=== PATIENT | female | born 1995 | race African-American/Black ===

== ENCOUNTER 2020-11-29 16:49 | Emergency (ER) | payer OTHER, MEDICAID, SELFPAY ==
[2020-11-29 17:18] VITALS: BP 110/70; PULSE 100; RESP 18; TEMP 36.9; O2SAT 100; BMI 25.2
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
== END 2020-11-29 20:48 | disposition left against medical advice (07) ==
PROVIDERS: Emergency Provider Internal Medicine; PCP Internal Medicine
DX: Z04.1 Encounter for examination and observation following transport accident (principal); O26.893 Other specified pregnancy related conditions, third trimester; R10.9 Unspecified abdominal pain; Z3A.34 34 weeks gestation of pregnancy
CPT/HCPCS: 99282; 99285

== ENCOUNTER 2021-08-06 15:02 | Outpatient (REF) | payer MEDICAID, SELFPAY ==
--- NOTE | ~2021-08-06 | US_ITS ---
EXAMINATION: US PELVIS CLINICAL INFORMATION: Left lower quadrant pain COMPARISON: None TECHNIQUE: Ultrasound of the pelvis is performed using both transabdominal and transvaginal transducers along with Doppler. Transvaginal imaging is performed due to inadequate visualization transabdominally. FINDINGS: The uterus is anteverted and measures 7 x 4 x 5 cm in dimension. No focal uterine lesion is seen. Endometrial thickness is normal measuring 0.6 cm. There is a small echogenic focus in the posterior cervix, question representing a small calcification. The ovaries are normal. The right ovary measures 3.5 x 2 x 2.8 cm. The left ovary measures 3.3 x 1.7 x 3 cm. There is no fluid in the pelvis. US/US pelvic and transvaginal IMPRESSION: Small probable calcification in the posterior cervix. Otherwise unremarkable exam.
== END 2021-08-06 15:03 | disposition home or self-care (01) ==
LOC: HO.US 15:02
PROVIDERS: PCP Internal Medicine; Visit Provider Internal Medicine
DX: R10.32 Left lower quadrant pain (principal); R10.2 Pelvic and perineal pain
CPT/HCPCS: 76830; 76856

== ENCOUNTER 2021-09-02 12:57 | Outpatient (REF) | payer MEDICAID, SELFPAY ==
[2021-09-03 03:47] LABS: CT PCR NOT DETECTED (Not Detect.); NG PCR NOT DETECTED (Not Detect.)
== END 2021-09-02 12:58 | disposition home or self-care (01) ==
LOC: HO.LAB 12:57
PROVIDERS: Visit Provider Obstetrics & Gynecology
DX: Z30.09 Encounter for other general counseling and advice on contraception (principal)
CPT/HCPCS: 87491; 87591; 99212

== ENCOUNTER → 2022-08-26 10:11 | Outpatient (BNVA) | payer MEDICAID, SELFPAY | PROVIDERS: Visit Provider Advanced Practice Midwife | DX: Z30.09 Encounter for other general counseling and advice on contraception (principal) | CPT/HCPCS: 99212 ==

== ENCOUNTER 2022-11-13 13:02 | Outpatient (REF) | payer MEDICAID, SELFPAY ==
[2022-11-14 00:52] LABS: CT PCR NOT DETECTED (Not Detect.); NG PCR NOT DETECTED (Not Detect.)
[2022-11-14 09:33] LABS: BV Int Neg Control Negative (Negative); BV Int Pos Control Positive (Positive)
== END 2022-11-13 13:03 | disposition home or self-care (01) ==
LOC: HO.LNP 13:02
PROVIDERS: PCP Internal Medicine; Visit Provider Advanced Practice Midwife
DX: Z01.419 Encounter for gynecological examination (general) (routine) without abnormal findings (principal); F41.9 Anxiety disorder, unspecified; Z86.2 Personal history of diseases of the blood and blood-forming organs and certain disorders involving the immune mechanism; Z86.39 Personal history of other endocrine, nutritional and metabolic disease; Z87.42 Personal history of other diseases of the female genital tract; Z79.899 Other long term (current) drug therapy
CPT/HCPCS: 0353U; 87480; 87510; 87660; 88142

== ENCOUNTER 2022-12-31 15:22 | Outpatient (REF) | payer MEDICAID, SELFPAY ==
[2022-12-31 15:43] LABS: Hematocrit 40.2 % (37.0-47.0); Hemoglobin 13.6 g/dl (12.0-16.0); Mean Corpuscular HGB Conc 33.8 g/dl (31.0-35.0); Mean Corpuscular Hemoglobin 29.4 pg (27.0-33.0); Mean Platelet Volume 10.6 fL (9.4-12.3); Platelet Count 278 X10*3/uL (160-400); Red Blood Count 4.62 X10*6/uL (4.20-5.50); White Blood Count 4.4 X10*3/uL (4.8-10.8)
[2022-12-31 16:26] LABS: Thyroid Stimulating Hormone 1.73 uIU/mL (0.32-4.0)
== END 2022-12-31 15:23 | disposition home or self-care (01) ==
LOC: HO.LAB 15:22
PROVIDERS: PCP Internal Medicine; Visit Provider Advanced Practice Midwife
DX: Z86.2 Personal history of diseases of the blood and blood-forming organs and certain disorders involving the immune mechanism (principal); Z86.39 Personal history of other endocrine, nutritional and metabolic disease; Z87.42 Personal history of other diseases of the female genital tract
CPT/HCPCS: 36415; 84443; 85027

== ENCOUNTER 2023-05-14 16:50 | Outpatient (REF) | payer MEDICAID, OTHER, SELFPAY ==
[2023-05-15 17:33] LABS: C. trachomatis RNA TMA NOT DETECTED (NOT DETECTED); Candida glabrata RNA NOT DETECTED (NOT DETECTED); Candida species RNA DETECTED (NOT DETECTED); N. gonorrhoeae RNA TMA NOT DETECTED (NOT DETECTED); Trichomonas vaginalis RNA NOT DETECTED (NOT DETECTED)
== END 2023-05-14 16:51 | disposition home or self-care (01) ==
LOC: HO.HHCLNP 16:50
PROVIDERS: Visit Provider Advanced Practice Midwife
DX: N89.8 Other specified noninflammatory disorders of vagina (principal)
CPT/HCPCS: 36415; 81513; 87481; 87491; 87591; 87661

== ENCOUNTER 2023-05-17 18:49 | Emergency (ER) | payer MEDICAID, OTHER, SELFPAY ==
--- NOTE | 2023-05-17 | ECG_ITS ---
Test Reason : chest pain Blood Pressure : / mmHG Vent. Rate : 085 BPM Atrial Rate : 085 BPM P-R Int : 120 ms QRS Dur : 074 ms QT Int : 358 ms P-R-T Axes : 023 049 020 degrees QTc Int : 426 ms Normal sinus rhythm with sinus arrhythmia Normal ECG No previous ECGs available Referred By: Generic ED Physician Electronically Signed By:LINETTE CALLEJAS MD
--- NOTE | ~2023-05-17 | CT_ITS ---
EXAMINATION: CT ABDOMEN AND PELVIS WITHOUT CONTRAST CLINICAL INFORMATION: Left flank pain COMPARISON: None available. TECHNIQUE: Multidetector volumetric imaging was performed from the superior aspect of the liver through the pubic symphysis. Sagittal and coronal reformatted images were obtained on the technologist's workstation. This CT examination was performed using dose optimization techniques as appropriate, variously including the following: *Automated exposure control *Adjustment of mA and/or kV according to patient size (this includes techniques or standardized protocols for targeted exams where dose is matched to indication/reason for exam; i.e. extremities or head) *Use of iterative reconstruction technique DLP: 338 mGy-cm FINDINGS: LUNG BASES: The visualized lung bases are unremarkable. LIVER, GALLBLADDER, AND BILIARY TREE: The liver is normal in size, shape, and attenuation. No focal hepatic lesion or biliary ductal dilatation is present. The gallbladder is unremarkable with no evidence of radiopaque gallstones, gallbladder wall thickening, or obvious pericholecystic inflammatory changes. PANCREAS: Unremarkable. SPLEEN: Unremarkable. ADRENAL GLANDS: Unremarkable. KIDNEYS AND URETERS: The kidneys are normal in size, shape, and attenuation. No hydronephrosis, hydroureter, or calculi seen. No perinephric stranding. BLADDER: Unremarkable. GASTROINTESTINAL TRACT: The small and large bowel are unremarkable. The appendix is unremarkable. ABDOMINAL WALL: No significant hernia is appreciated. LYMPH NODES: Normal. VASCULAR: Unremarkable. PELVIC VISCERA: Uterus and adnexa unremarkable. OSSEOUS STRUCTURES: Unremarkable. CT/CT abdomen pelvis wo IV con IMPRESSION: * No urinary calculi or hydronephrosis. * No acute findings within the abdomen or pelvis to explain the patient's symptomatology.
[2023-05-17 18:55] VITALS: BP 140/110; PULSE 79; O2SAT 99
[2023-05-17 19:28] VITALS: BP 121/74; BP 140/110; PULSE 79; PULSE 88; RESP 20; TEMP 36.1; O2SAT 100; O2SAT 99; BMI 23.8
[2023-05-17 19:40] LABS: MANUAL DIFF FLAG NO
[2023-05-17 19:42] LABS: Basophils Percent Auto 0.4 % (0-2); Eosinophils Absolute Auto 0.1 X10*3/uL (0.0-0.4); Eosinophils Percent Auto 2.7 % (0-4); Hematocrit 39.9 % (37.0-47.0); Hemoglobin 13.6 g/dl (12.0-16.0); Imm Gran Abs Auto 0.01 X10*3/uL (0.00-0.03); Imm Gran Pct Auto 0.2 % (0.0-0.4); Lymphocytes Absolute Auto 2.1 X10*3/uL (1.2-4.9); Lymphocytes Percent Auto 41.9 % (20-40); Mean Corpuscular HGB Conc 34.1 g/dl (31.0-35.0); Mean Corpuscular Hemoglobin 30.1 pg (27.0-33.0); Mean Corpuscular Volume 88.3 fL (80.0-98.0); Mean Platelet Volume 10.2 fL (9.4-12.3); Monocytes Absolute Auto 0.4 X10*3/uL (0.1-1.2); Monocytes Percent Auto 7.8 % (2-11); Neutrophils Absolute Auto 2.3 x10*3/uL (2.0-8.3); Platelet Count 247 X10*3/uL (160-400); Red Blood Count 4.52 X10*6/uL (4.20-5.50); White Blood Count 4.9 X10*3/uL (4.8-10.8)
[2023-05-17 19:58] LABS: Alanine Aminotransferase 13 U/L (0-31); Alkaline Phosphatase 46 U/L (39-117); Anion Gap 13 (12-20); Aspartate Amino Transferase 19 U/L (5-31); Bilirubin Total 0.4 mg/dL (0.0-1.0); Blood Urea Nitrogen 8 mg/dL (9-16); Calcium 9.6 mg/dL (8.4-10.2); Carbon Dioxide 26 mmol/L (22-29); Chloride 106 mmol/L (96-108); Creatinine Clr Calc Pharmacy 93.3; Estimated Glomerular Filt Rate > 60; Glucose Random 123 mg/dL (60-115); Lipase 28 U/L (8-78); Potassium 3.9 mmol/L (3.3-5.1); Sodium 141 mmol/L (135-145); Total Protein 7.5 g/dL (6.5-8.0)
[2023-05-17 20:15] LABS: Appearance Urine Clear; Color Urine Yellow; Glucose Urine UA Negative (Negative); Leukocyte Esterase Urine Negative (Negative); Nitrite Urine Negative (Negative); PH 6.5 (5.0-9.0); Specific Gravity - Urine <= 1.005 (1.005-1.025); Urine Blood Negative (Negative); Urine Ketones Negative (Negative); Urine Protein Negative (Neg-Trace)
[2023-05-17 20:16] LABS: UPreg QC Valid YES; Urine Pregnancy NEGATIVE (NEGATIVE)
[2023-05-17 20:17] LABS: Bacteria Urine None Seen (None Seen); Hyaline Casts Urine 0-2 /LPF (0-2); RBC Urine 0-2 /HPF (0-2); Squamous Epithelial Cell Urine 0-2 /HPF (0-2); WBC Urine 0-5 /HPF (0-5)
[2023-05-18] VITALS: BP 114/73; PULSE 81; RESP 18; TEMP 36.6; O2SAT 100
--- NOTE | 2023-05-18 00:49 | PC.NURSE ---
pt from home reporting left lower quadrant pain since this morning. pt reports the pain is intermittent. pt reports the pain subsides with rest and increases with movement. pt reports episodes of nausea. denies vomiting and diarrhea. pt reports hemorrhoids and constipation but reports that has been her normal since having a baby. no acute distress noted.
[2023-05-18 01:19] VITALS: BP 122/71; PULSE 88; RESP 16; TEMP 36.9; O2SAT 100
--- NOTE | 2023-05-18 01:42 | ED_ITS ---
HPI - Abdominal Pain General Chief Complaint: Abdominal Pain Stated Complaint: L side abd pain 8/10 pain Time Seen by Provider: 05/18/23 01:31 Source: patient Mode of arrival: ambulatory Limitations: language barrier (Mongolian speaking only, 911 emergency dispatcher used) History of Present Illness HPI narrative: 27-year-old female who presents emergency department for evaluation of left lower quadrant left flank pain. The pain started suddenly yesterday has been constant since onset. She describes the pain is a pressure-like pain which is 8/10 at its worst. She had associated nausea with no vomiting. She had frequency but no dysuria. She denied fever, chills, chest pain, shortness of breath. She denied diarrhea and states she is constipated and has hemorrhoids. She states she had similar pain in the past but she was never given a diagnosis. Related Data Home Medications Medication Instructions Recorded Confirmed cholecalciferol (vitamin D3) 50 50 mcg PO DAILY 08/26/22 11/13/22 mcg (2,000 unit) capsule (Vitamin D3) Previous Rx's Medication Instructions Recorded norgestimate-ethinyl estradiol 1 tab PO DAILY #84 tabs 11/13/22 0.18 mg/0.215mg/0.25mg-35 mcg(28)tablet (Tri-Linyah) metronidazole 500 mg tablet 500 mg PO BID 7 days #14 tabs 11/14/22 docusate sodium 100 mg capsule 100 mg PO BID 14 days #28 caps 05/18/23 (Colace) hydrocortisone 2.5 % topical cream 1 appl MA DAILY PRN hemorrhoids 05/18/23 with perineal applicator #30 grams (Proctozone-HC) polyethylene glycol 3350 17 17 g PO DAILY 8 doses #119 grams 05/18/23 gram/dose oral powder (Miralax) sennosides 17.2 mg tablet (Senokot 17.2 mg PO BID PRN constipation 05/18/23 Extra Strength) #20 tabs Allergies Allergy/AdvReac Type Severity Reaction Status Date / Time aspirin [ASPIRIN] Allergy Unknown LOW RBC, Verified 11/13/22 13:05 low plaletes Review of Systems Review of Systems Yes all other systems are reviewed and are negative PMFSH Past Medical History PMFSH Narrative: Past medical history: Anxiety, hypothyroidism, ITP social history: Patient denies tobacco, alcohol and drug use. Medical History (Updated 05/18/23 @ 07:24 by Sean Nguyen MD) Hx of thrombocytopenia History of hypothyroidism No known health problems Family History Family History Maternal Grandmother Breast CA Social History Social History Patient Tobacco Use Status: Never used Tobacco Smoked in Last 30 Days: No Use of substances other than those prescribed or required for medical reasons: No Advance Directives: No Advance Directives Information Provided: No Patient : No Physical Exam ED Vital Signs: Vital Signs - 24 hr 05/17/23 19:28 05/18/23 00:00 05/18/23 01:19 Temperature 97.0 F 97.8 F 98.4 F Pulse Rate 88 81 88 Respiratory Rate 20 18 16 Blood Pressure 121/74 114/73 122/71 Pulse Oximetry 100 100 100 Oxygen Delivery Method Room Air Room Air Room Air 05/18/23 02:00 05/18/23 06:14 Temperature 97.2 F 98.7 F Pulse Rate 54 89 Respiratory Rate 15 Blood Pressure 115/66 109/52 L Pulse Oximetry 100 98 Oxygen Delivery Method Room Air Room Air BMI result Body Mass Index 23.8 Vital signs were normal. Exam: General: Awake, alert in no distress Head: Normocephalic, atraumatic EENT: PERRL, Lids normal, sclera normal, conjunctiva normal, nose normal , ears normal, throat without erythema or exudates Neck: Supple, no adenopathy, no trachea midline or C-spine tenderness Lung: breath sounds symmetric, no wheezing, rales or rhonchi Chest: symmetric movement, nontender Heart: regular rate and rhythm, normal S1, S2 no murmurs or rubs Abdomen: soft, moderate left upper quadrant tender, nondistended, normal bowel sounds Back: Mild left CVA tenderness Extremities: no deformities, moves all extremities symmetrically Skin: no rashes, no lesion, normal color and warmth Neuro: Awake, alert, oriented, normal speech, cranial nerves intact, moves all extremities symmetrically Psych: Pleasant, cooperative Medical Decision Making Medical Decision Making MDM Narrative: 27-year-old female with history of anxiety, hypothyroidism, ITP presents emergency department for evaluation of sudden onset of left sided abdominal pain and left flank pain started 2 days prior. Patient has had associated nausea and urinary frequency. Vital signs were normal pain. Exam did reveal left sided abdominal tenderness and left CVA tenderness. Patient was treated with Toradol 15 mg IV, Zofran 4 mg IV and normal saline x1 L 02:18 Interpretation patient's laboratory evaluation is as follows: CBC was normal, CMP revealed an elevated glucose of 123 otherwise unremarkable. Lipase was normal at 28. Urine test was negative. Urinalysis was negative. 07:[address] scan did not reveal any significant abnormality to explain the patient's pain. This time I do not have a clear cause for the patient's pain however she did states she is constipated and this could possibly be the cause. Patient was prescribed Colace 100 mg twice a day for 2 weeks, extra-strength Senokot b.i.d. for 4 days then as needed and MiraLax daily for 2 weeks. Patient also complained of hemorrhoids and she prescribed Proctozone 2.5% cream to use b.i.d. and after each bowel movement. Differential Diagnosis Differential Diagnoses: The differential diagnosis associated with the presentation includes Differential diagnosis includes was not limited to gastritis, renal colic, ureteral stone, viral since Admission/Observation Consideration of admission/observation: Escalation of care including admission/observation considered Lab Data 05/17/23 19:35 05/17/23 19:35 Labs: Lab Results 05/17/23 05/17/23 Range/Units 19:35 20:07 WBC 4.9 (4.8-10.8) X10*3/uL RBC 4.52 (4.20-5.50) X10*6/uL Hgb 13.6 (12.0-16.0) g/dl Hct 39.9 (37.0-47.0) % MCV 88.3 (80.0-98.0) fL MCH 30.1 (27.0-33.0) pg MCHC 34.1 (31.0-35.0) g/dl RDW 12.0 (11.0-16.0) % Plt Count 247 (160-400) X10*3/uL MPV 10.2 (9.4-12.3) fL Immature Gran % (Auto) 0.2 (0.0-0.4) % Neut % (Auto) 47.0 (45-73) % Lymph % (Auto) 41.9 H (20-40) % [place] % (Auto) 7.8 (2-11) % Eos % (Auto) 2.7 (0-4) % Baso % (Auto) 0.4 (0-2) % Lymph # (Auto) 2.1 (1.2-4.9) X10*3/uL [place] # (Auto) 0.4 (0.1-1.2) X10*3/uL Eos # (Auto) 0.1 (0.0-0.4) X10*3/uL Baso # (Auto) 0.0 (0.0-0.2) X10*3/uL Abs Immat Gran (auto) 0.01 (0.00-0.03) X10*3/uL Absolute Neuts (auto) 2.3 (2.0-8.3) x10*3/uL Absolute Nucleated RBC 0.000 (0.0-0.012) X10*3/uL Nucleated RBC % (auto) 0.0 (0.0-0.2) /100WBC Sodium 141 (135-145) mmol/L Potassium 3.9 (3.3-5.1) mmol/L Chloride 106 (96-108) mmol/L Carbon Dioxide 26 (22-29) mmol/L Anion Gap 13 (12-20) BUN 8 L (9-16) mg/dL Creatinine 0.80 (0.5-1.4) mg/dL Estim Creat Clear Calc 93.3 Estimated GFR > 60 Random Glucose 123 H (60-115) mg/dL Calcium 9.6 (8.4-10.2) mg/dL Total Bilirubin 0.4 (0.0-1.0) mg/dL AST 19 (5-31) U/L ALT 13 (0-31) U/L Alkaline Phosphatase 46 (39-117) U/L Total Protein 7.5 (6.5-8.0) g/dL Albumin 4.0 (3.5-5.0) g/dL Lipase 28 (8-78) U/L Urine Color Yellow Urine Appearance Clear Urine pH 6.5 (5.0-9.0) Ur Specific [place] <= 1.005 (1.005-1.025) Urine Protein Negative (Neg-Trace) mg/dL Urine Glucose (UA) Negative (Negative) mg/dL Urine Ketones Negative (Negative) mg/dL Urine Blood Negative (Negative) Urine Nitrite Negative (Negative) Ur Leukocyte Esterase Negative (Negative) Urine RBC 0-2 (0-2) /HPF Urine WBC 0-5 (0-5) /HPF Ur Squamous Epith Cells 0-2 (0-2) /HPF Urine Bacteria None Seen (None Seen) Hyaline Casts 0-2 (0-2) /LPF Urine Test NEGATIVE (NEGATIVE) Radiology Impression Discussion of test interpretation with radiology: I have reviewed the radiologist's reading. Radiologist Impression: CT abdomen pelvis wo IV con IMPRESSION: * No urinary calculi or hydronephrosis. * No acute findings within the abdomen or pelvis to explain the patient's symptomatology. Dictated By: Chase Drake MD Medications Administered Discontinued Medications Generic Name Dose Route Start Last Admin Trade Name Freq PRN Reason Stop Dose Admin Sodium Chloride 1,000 mls @ 999 mls/hr 05/18/23 02:13 05/18/23 03:45 Ns IV 05/18/23 03:13 Infused .Q1H1M STA Infusion Ketorolac Tromethamine 15 mg 05/18/23 02:13 05/18/23 02:44 Ketorolac Tromethamine 15 Mg/Ml Vial IVPUSH 05/18/23 02:14 15 mg ONCE STA Administration Ondansetron HCl 4 mg 05/18/23 02:13 05/18/23 02:44 Ondansetron Hcl 4 Mg/2 Ml Vial IVPUSH 05/18/23 02:14 4 mg ONCE ONE Administration Discharge Plan Discharge Clinical Impression: Constipation, Hemorrhoids Abdominal pain Qualifiers: Abdominal location: left lower quadrant Qualified Code(s): R10.32 - Left lower quadrant pain Patient Disposition: Home, Self-Care Instructions: Constipation (ED), High Fiber Diet (ED) Additional Instructions: Your blood work was normal. The CT scan of your abdomen and pelvis did not reveal any abnormal findings to explain your pain. Your pain may be caused by constipation. Take Colace, 1 pill twice a day for 2 weeks. This is a stool softener. Take MiraLax 1 dose daily and increase the amount of fluid that you drink, this medication puts fluid in your intestines and helps you move your bowels. Take extra-strength Senokot 1 pill twice a day 4 days as needed for constipation. This is a laxative will make you move your bowels. Use Proctozone steroid cream, apply this twice a day to your hemorrhoids and after after each bowel movement Follow-up with your doctor in 2 days. Please return to the emergency department if your symptoms get worse or if you develop any symptoms that are concerning to you. Please see the work Prescriptions: New docusate sodium [Colace] 100 mg capsule 100 mg PO BID 14 Days Qty: 28 0RF Senokot Extra Strength 17.2 mg tablet 17.2 mg PO BID PRN (Reason: constipation) Qty: 20 0RF polyethylene glycol 3350 [Miralax] 17 gram/dose powder 17 g PO DAILY Qty: 119 0RF hydrocortisone [Proctozone-HC] 2.5 % cream with perineal applicator 1 appl MA DAILY PRN (Reason: hemorrhoids) Qty: 30 0RF No Action metronidazole 500 mg tablet 500 mg PO BID 7 Days Qty: 14 0RF cholecalciferol (vitamin D3) [Vitamin D3] 50 mcg (2,000 unit) capsule 50 mcg PO DAILY norgestimate-ethinyl estradiol [Tri-Linyah] 0.18/0.215/0.25 mg-35 mcg (28) tablet 1 tab PO DAILY Qty: 84 4RF Stand Alone Forms: Work/School Release
[2023-05-18 02:00] VITALS: BP 115/66; PULSE 54; RESP 15; TEMP 36.2; O2SAT 100
[2023-05-18] MEDS: 0.9 % Sodium Chloride 1,000 ML 999 ML IV (02:44)
[2023-05-18] MEDS: Ketorolac Tromethamine 15 MG/ML VIAL IVPUSH (02:44)
[2023-05-18] MEDS: ondansetron HCL 4 MG/2 ML VIAL IVPUSH (02:44)
--- NOTE | 2023-05-18 02:48 | PC.NURSE ---
IV access established, 20G placed in right ac, pt medicated per mar.
--- NOTE | 2023-05-18 03:32 | PC.NURSE ---
pt sleeping, respirations even and unlabored.
[2023-05-18 06:14] VITALS: BP 109/52; PULSE 89; TEMP 37.1; O2SAT 98
[2023-05-18 07:34] VITALS: PULSE 80; RESP 16; O2SAT 97
--- NOTE | 2023-05-18 07:34 | PC.NURSE ---
d/c education at bedside with dr teague and staff medical interpeter. pt reports understanding d/c instructions.
== END 2023-05-18 07:45 | disposition home or self-care (01) ==
PROVIDERS: Emergency Provider Emergency Medicine Emergency Medical Services; PCP Internal Medicine
DX: K59.00 Constipation, unspecified (principal); K64.9 Unspecified hemorrhoids; R10.32 Left lower quadrant pain; R11.2 Nausea with vomiting, unspecified; R07.89 Other chest pain; Z79.899 Other long term (current) drug therapy
CPT/HCPCS: 36415; 74176; 80053; 81001; 81025; 83690; 85025; 93005; 96361; 96374; 96375; 99284; 99285; J1885; J2405

== ENCOUNTER → 2023-05-17 19:30 | Outpatient (BNV) | payer SELFPAY | PROVIDERS: Emergency Provider Emergency Medicine Emergency Medical Services; PCP Internal Medicine; Visit Provider Internal Medicine Cardiovascular Disease | DX: R10.817 Generalized abdominal tenderness (principal) | CPT/HCPCS: 93010 ==

== ENCOUNTER 2023-08-20 14:13 | Outpatient (REF) | payer MEDICAID, OTHER, SELFPAY ==
[2023-08-20 16:14] LABS: Mean Corpuscular HGB Conc 33.3 g/dl (31.0-35.0); Mean Corpuscular Hemoglobin 29.9 pg (27.0-33.0); Mean Corpuscular Volume 89.6 fL (80.0-98.0); Mean Platelet Volume 11.2 fL (9.4-12.3); Platelet Count 272 X10*3/uL (160-400); Red Blood Count 4.69 X10*6/uL (4.20-5.50); Red Cell Distribution Width 12.6 % (11.0-16.0); White Blood Count 4.3 X10*3/uL (4.8-10.8)
[2023-08-20 16:21] LABS: Estimated Average Glucose 85 mg/dL; Hemoglobin A1c % 4.6 % (<6.0)
[2023-08-20 16:49] LABS: TSH reflex Free T4 1.83 uIU/mL (0.32-4.0)
== END 2023-08-20 14:14 | disposition home or self-care (01) ==
LOC: HO.HHCL 14:13
PROVIDERS: Visit Provider Advanced Practice Midwife
DX: R30.0 Dysuria (principal); R53.83 Other fatigue; B37.31 Acute candidiasis of vulva and vagina; Z83.3 Family history of diabetes mellitus
CPT/HCPCS: 36415; 83036; 84443; 85027; 87086

== ENCOUNTER 2023-08-24 15:18 | Outpatient (REF) | payer MEDICAID, OTHER, SELFPAY ==
[2023-08-24 16:08] LABS: Bacteria Urine None Seen (None Seen); Hyaline Casts Urine 0-2 /LPF (0-2); Squamous Epithelial Cell Urine 0-2 /HPF (0-2); WBC Urine 0-5 /HPF (0-5)
[2023-08-24 16:10] LABS: RBC Urine 0-2 /HPF (0-2)
[2023-08-24 16:24] LABS: Appearance Urine Clear; Color Urine Yellow; Glucose Urine UA Negative (Negative); Leukocyte Esterase Urine Negative (Negative); Nitrite Urine Negative (Negative); PH 7.5 (5.0-9.0); Specific Gravity - Urine 1.015 (1.005-1.025); Urine Blood Negative (Negative); Urine Ketones Negative (Negative); Urine Protein Negative (Neg-Trace)
== END 2023-08-24 15:19 | disposition home or self-care (01) ==
LOC: HO.HHCL 15:18
PROVIDERS: Visit Provider Advanced Practice Midwife
DX: R31.29 Other microscopic hematuria (principal)
CPT/HCPCS: 81001

== ENCOUNTER 2023-08-31 16:21 | Outpatient (REF) | payer MEDICAID, OTHER, SELFPAY | END 2023-08-31 16:22 | disposition home or self-care (01) | LOC: HO.HHCLNP 16:21 | PROVIDERS: Visit Provider Internal Medicine | DX: R30.0 Dysuria (principal) | CPT/HCPCS: 36415; 81513 ==

== ENCOUNTER 2023-09-30 13:30 | Outpatient (AMB) | payer OTHER, SELFPAY ==
[2023-09-30 13:32] VITALS: BP 106/68; BMI 20.8
--- NOTE | 2023-09-30 13:32 | A.OFFVIS_ITS ---
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 Required: Yes Knife Machine Operator Language: German Information Interpreted: non-clinical & clinical Airbrush Artist: Airbrush Artist Present (Alexyn) Allergies aspirin [ASPIRIN] Allergy (Unknown, Verified 09/30/23 13:34) LOW RBC, low plaletes Is last menstrual period known: Yes Last menstrual period: 09/23/23 Post menopausal: No HPI HPI pain during intercourse: Details: Patient today she was sick on the weekend with some intestinal illness that started on Thursday it started with her children and then her and then her she went to the hospital ([facility] ER on Thursday and was there for many hours and got IV hydration and blood tests and some pills for nausea under her tongue the nauseous better. She also had her menses which ended yesterday. She was supposed to get a colonoscopy yesterday at [place] but she did not feel well so she canceled that. When she came home from the emergency room early Thursday morning some hours later she had sex and that is when it hurt. She is on control pills still. She has an appointment for an annual exam in October she has a history of ASCUS with her 1st but last year's was negative. She also would like to have 1 more baby before getting her tubes tied but she is afraid of getting sick she had severe thrombocytopenia requiring IV steroids in her last and was managed at [facility]. She had an appointment also to discuss that at [facility] but that got canceled also when she was not feeling well. She is reschedule the colonoscopy which is going to be done in [place] to next October She has suffer from constipation for years ever since her last . She says she has not tried Metamucil but her suggested she drink prune juice and she said that actually does work. [facility] Medical History (Updated 09/30/23 @ 14:10 by Sally Alfaro CNM) Hx of thrombocytopenia History of hypothyroidism No known health problems Family History Maternal Grandmother Breast CA Social History Patient Tobacco Use Status: Never used Tobacco Female Reproductive History Menstrual Age of Menarche: 14 Duration of menses: 3-5 days Date of last menstrual period: 09/23/23 control method: pills Total pregnancies: 2 Full term: 2 Number of Living Children: 2 Date of last pap smear: 11/14/22 (negative) History of abnormal pap smear: Yes (2018 ASCUS) Physical Exam Vital Signs: BMI result Body Mass Index 20.8 Other: Speculum exam within is clear scant normal discharge. Cervix multiparous mobile nontender uterus nontender not enlarged anteverted nontender on exam.. External Female Exam: normal external appearance Speculum Exam - Vagina: normal appearance of the vagina and normal vaginal discharge Speculum Exam - Cervix: normal appearance of the cervix Bimanual exam- vagina & uterus: normal bimanual exam, uterine size normal, consistency normal, uterine mobility normal, uterine shape normal and non-tender Bimanual Exam- Adnexa, other: normal adnexae, no masses and No adnexal tenderness Results Reviewed Results Reviewed: Gynecologic Cytology [id number] Name: SukhdevMadeline Shen Age/Sex: 27/F Attending: Sally Alfaro CNM : 1995 Submitted by: Sally Alfaro CNM Copies to: Darling Reyes MD MR #: [id number] Status: DEP REF Collected: 11/13/22 Location: [facility] Received: 11/14/22 Interpretation Satisfactory for evaluation. Negative for intraepithelial lesion or malignancy. Clinical Information LMP: 10/13/22 (approximately) Previous PAP test: 12/28/17, ASCUS Material Received ThinPrep-Cervical Copies To Darling Reyes MD [address] [place] [address] Barber [address] [place] [address] Electronically Signed By: TRAVIS Bray (ASCP) 12/10/22 9460 The Pap Test is a screening procedure with the inherent possibility of both false negative and false positive results. Results should be interpreted in the context of historic and current clinical findings. Reliability of the Pap Test is enhanced by performing the test on a regular repetitive basis. Patient: Madeline Santizo Age/Sex: 27/F MR#: [id number] Page 1 of 1 Assessment & Plan Assessment & Plan (1) Hx of abnormal cervical Pap smear: Comment: hx of ASCUS in last preg, 11/13/22 pap= neg. Code(s): Z87.42 - Personal history of other diseases of the female genital tract Category: Medical (2) Hx of thrombocytopenia: Comment: Severe during her pregnancies required IV steroids... Code(s): Z86.2 - Personal history of diseases of the blood and blood-forming organs and certain disorders involving the immune mechanism Category: Medical (3) Dyspareunia due to medical condition in female: Comment: The painful intercourse was several hours after returning from [facility] emergency room where she was treated for several hours for gastroenteritis... Code(s): N94.19 - Other specified dyspareunia Category: Medical Plan Patient today she was sick on the weekend with some intestinal illness that started on Thursday it started with her children and then her and then her she went to the hospital ([facility] ER on Thursday and was there for many hours and got IV hydration and blood tests and some pills for nausea under her tongue the nauseous better. She also had her menses which ended yesterday. She was supposed to get a colonoscopy yesterday at [place] but she did not feel well so she canceled that. When she came home from the emergency room early Thursday morning some hours later she had sex and that is when it hurt. She is on control pills still. She has an appointment for an annual exam in October she has a history of ASCUS with her 1st but last year's was negative. She also would like to have 1 more baby before getting her tubes tied but she is afraid of getting sick she had severe thrombocytopenia requiring IV steroids in her last and was managed at [facility]. She had an appointment also to discuss that at [facility] but that got canceled also when she was not feeling well. She is reschedule the colonoscopy which is going to be done in [place] to next October She has suffer from constipation for years ever since her last . She says she has not tried Metamucil but her suggested she drink prune juice and she said that actually does work. Her exam today was completely benign. Most of the visit discussed her recent viral illness and how it is understandable that she would have pain with intercourse after just returning from the emergency room where she was being treated and rehydrated for viral gastroenteritis. Thierry her a line drawing shown proximity of pelvic or to intestinal organs and peritoneal cavity. I do recommend that she consider the prune juice rather than suffering with chronic constipation. Additionally it would be good to wait to feel better after an illness before having sex. She is going to be rescheduling be appointment for the [facility] consultation as well I will see her in October for her annual exam and re Pap smear Orders: Orders CT NG by PCR Today N94.10 - Unspecified dyspareunia Bacterial Vaginosis Panel Today N94.10 - Unspecified dyspareunia Coding Level of Care Code Est Pt Level 3 (83697) Diagnoses Hx of abnormal cervical Pap smear Z87.42 Hx of thrombocytopenia Z86.2 Dyspareunia due to medical condition in female N94.19
== END 2023-09-30 15:13 | disposition home or self-care (01) ==
PROVIDERS: PCP Internal Medicine; Visit Provider Advanced Practice Midwife
DX: N94.19 Other specified dyspareunia (principal); Z87.42 Personal history of other diseases of the female genital tract; Z86.2 Personal history of diseases of the blood and blood-forming organs and certain disorders involving the immune mechanism
CPT/HCPCS: 99213

== ENCOUNTER 2023-09-30 13:30 | Outpatient (REF) | payer MEDICAID, OTHER, SELFPAY ==
[2023-10-01 03:41] LABS: CT PCR NOT DETECTED (Not Detect.); NG PCR NOT DETECTED (Not Detect.)
[2023-10-01 13:16] LABS: BV Int Neg Control Negative (Negative); BV Int Pos Control Positive (Positive)
== END 2023-09-30 13:31 | disposition home or self-care (01) ==
LOC: HO.LNP 13:30
PROVIDERS: PCP Internal Medicine; Visit Provider Advanced Practice Midwife
DX: N94.19 Other specified dyspareunia (principal); Z87.42 Personal history of other diseases of the female genital tract; Z86.2 Personal history of diseases of the blood and blood-forming organs and certain disorders involving the immune mechanism
CPT/HCPCS: 0353U; 87480; 87510; 87660; 99212

== ENCOUNTER 2023-11-17 13:49 | Outpatient (REF) | payer OTHER, SELFPAY ==
[2023-11-17 16:02] LABS: MANUAL DIFF FLAG NO
[2023-11-17 16:13] LABS: Basophils Percent Auto 0.6 % (0-2); Eosinophils Absolute Auto 0.1 X10*3/uL (0.0-0.4); Eosinophils Percent Auto 1.4 % (0-4); Hemoglobin 13.9 g/dl (12.0-16.0); Imm Gran Abs Auto 0.01 X10*3/uL (0.00-0.03); Imm Gran Pct Auto 0.3 % (0.0-0.4); Lymphocytes Absolute Auto 1.8 X10*3/uL (1.2-4.9); Lymphocytes Percent Auto 50.7 % (20-40); Mean Corpuscular HGB Conc 33.9 g/dl (31.0-35.0); Mean Corpuscular Hemoglobin 30.6 pg (27.0-33.0); Mean Corpuscular Volume 90.3 fL (80.0-98.0); Monocytes Absolute Auto 0.3 X10*3/uL (0.1-1.2); Monocytes Percent Auto 9.1 % (2-11); Neutrophils Absolute Auto 1.3 x10*3/uL (2.0-8.3); Neutrophils Percent Auto 37.9 % (45-73); Platelet Count 303 X10*3/uL (160-400); Red Blood Count 4.54 X10*6/uL (4.20-5.50); Red Cell Distribution Width 12.7 % (11.0-16.0); White Blood Count 3.5 X10*3/uL (4.8-10.8)
[2023-11-17 16:39] LABS: Alanine Aminotransferase 17 U/L (0-31); Albumin Level 3.9 g/dL (3.5-5.0); Alkaline Phosphatase 40 U/L (39-117); Aspartate Amino Transferase 17 U/L (5-31); Bilirubin Direct 0.2 mg/dL (0.0-0.5); Bilirubin Total 0.5 mg/dL (0.0-1.0); Total Protein 7.2 g/dL (6.5-8.0)
== END 2023-11-17 13:50 | disposition home or self-care (01) ==
LOC: HO.HHCL 13:49
PROVIDERS: Visit Provider Student in an Organized Health Care Education/Training Program
DX: R17 Unspecified jaundice (principal)
CPT/HCPCS: 36415; 80076; 85025

== ENCOUNTER 2023-11-24 09:51 | Outpatient (REF) | payer OTHER, SELFPAY ==
[2023-11-24 22:48] LABS: CT PCR NOT DETECTED (Not Detect.); NG PCR NOT DETECTED (Not Detect.)
[2023-11-25 10:52] LABS: Bacterial Vaginosis PCR NEGATIVE (Negative); Candida Group PCR NOT DETECTED (Not Detect); Candida glab krusei PCR NOT DETECTED (Not Detect); Trichomonas vaginalis PCR NOT DETECTED (Not Detect)
[2023-12-07 10:19] LABS: HPV mRNA E6/E7 Not Detected
== END 2023-11-24 09:52 | disposition home or self-care (01) ==
LOC: HO.LAB 09:51
PROVIDERS: PCP Internal Medicine; Visit Provider Advanced Practice Midwife
DX: Z01.419 Encounter for gynecological examination (general) (routine) without abnormal findings (principal); N89.8 Other specified noninflammatory disorders of vagina; Z11.3 Encounter for screening for infections with a predominantly sexual mode of transmission; Z87.42 Personal history of other diseases of the female genital tract; Z86.2 Personal history of diseases of the blood and blood-forming organs and certain disorders involving the immune mechanism
CPT/HCPCS: 0352U; 0353U; 36415; 87625; 88175; 99395

== ENCOUNTER 2023-11-24 09:51 | Outpatient (AMB) | payer OTHER, SELFPAY ==
[2023-11-24 10:10] VITALS: BP 118/68; BMI 20.8
--- NOTE | 2023-11-24 10:10 | A.OFFVIS_ITS ---
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 Bait Man Services: Bait Man Present Information Interpreted: clinical only Religious Activities Director: Religious Activities Director Present Allergies aspirin [ASPIRIN] Allergy (Unknown, Verified 11/24/23 10:12) LOW RBC, low plaletes Medication List - Last Reconciled 11/24/23 by Sally Alfaro CNM norgestimate-ethinyl estradiol 0.18/0.215/0.25 mg-35 mcg (28) (Tri-Linyah) 1 tab PO DAILY Is last menstrual period known: Yes Last menstrual period: 11/17/23 Do you need a note to return to daycare/school/sports/work: No HPI HPI 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 She does have a history of abnormal Paps. She has a history of severe thrombocytopenia she does want to have 1 more baby and then get her tubes tied she is currently o n control pills she is waiting on details a were a referral from her primary to [facility] to discuss care and planning. She is aware that she would need to get all of her care in at [facility] because of her history of thrombocytopenia. [facility] History Hx of thrombocytopenia History of hypothyroidism No known health problems Family History Maternal Grandmother Breast CA Social History Patient Tobacco Use Status: Never used Tobacco Female Reproductive History Menstrual Age of Menarche: 14 Duration of menses: 3-5 days Date of last menstrual period: 11/17/23 control method: pills Total pregnancies: 2 Date of last pap smear: 11/13/22 (negative) History of abnormal pap smear: Yes (12/28/2017,ASCUS) Physical Exam Vital Signs: Last Vital Signs BP 118/68 11/24/23 10:10 BMI result Body Mass Index 20.8 Const General: healthy appearing, comfortable, no acute distress, well developed and alert Nutritional Appearance: average body habitus Orientation/consciousness: patient oriented x3 Limitations: no limitations HEENT Head: Yes normocephalic Neck Neck: Yes normal visual inspection Chest Chest palpation & inspection: normal inspection of the chest Breast/axilla inspection: normal inspection of the breasts and normal inspection of the axillae Breast/axilla palpation: normal palpation of the breasts and normal palpation of the axillae Resp Effort & Inspection: normal respiratory effort GI Inspection: Yes normal to inspection, No Abdominal wall edema and No distended Palpation (GI): Soft to palpation and nontender Other: External exam within normal limits vagina pink and moist cervix multiparous pink moist with nabothian cysts uterus small midposition mobile nontender adnexa nontender very good tone with Kegel. General: Yes bladder normal to palpation External Female Exam: normal external appearance and normal appearance of the urethra Speculum Exam - Vagina: normal appearance of the vagina, normal palpation and normal vaginal discharge Speculum Exam - Cervix: normal appearance of the cervix, normal palpation and nontender Bimanual exam- vagina & uterus: normal bimanual exam, normal palpation, uterine size normal, bladder normal to palpation, consistency normal, normal palpation, uterine mobility normal, uterine shape normal, No Cervical tenderness present, non-tender and no cervical motion tenderness Bimanual Exam- Adnexa, other: normal adnexae, no masses, normal and No adnexal tenderness Neuro General: patient oriented x3 Results Reviewed Results Reviewed: Name: Madeline Santizo Age/Sex: 27/F Attending: Sally Alfaro CNM : 1995 Submitted by: Sally Alfaro CNM Copies to: Darling Reyes MD MR #: [id number] Status: DEP REF Collected: 11/13/22 Location: [facility] Received: 11/14/22 Interpretation Satisfactory for evaluation. Negative for intraepithelial lesion or malignancy. Clinical Information LMP: 10/13/22 (approximately) Previous PAP test: 12/28/17, ASCUS Material Received ThinPrep-Cervical Copies To Darling Reyes MD [address] [place] [address] Barber [address] [place] [address] Electronically Signed By: TRAVIS Bray (ASCP) 12/10/22 6258 The Pap Test is a screening procedure with the inherent possibility of both false negative and false positive results. Results should be interpreted in the context of historic and current clinical findings. Relia bility of the Pap Test is enhanced by performing the test on a regular repetitive basis. Patient: Madeline Santizo Age/Sex: 27/F MR#: [id number] Page 1 of 1 Assessment & Plan Assessment & Plan (1) Hx of abnormal cervical Pap smear: Comment: hx of ASCUS in last preg, 11/13/22 pap= neg. Code(s): Z87.42 - Personal history of other diseases of the female genital tract Category: Medical (2) Well woman exam with routine gynecological exam: Code(s): Z01.419 - Encounter for gynecological examination (general) (routine) without abnormal findings Category: Medical (3) Hx of thrombocytopenia: Comment: Severe during her pregnancies required IV steroids... Code(s): Z86.2 - Personal history of diseases of the blood and blood-forming organs and certain disorders involving the immune mechanism Category: Medical (4) Counseling for control, oral contraceptives: Code(s): Z30.09 - Encounter for other general counseling and advice on contraception Category: Medical (5) Family planning: Code(s): Z30.09 - Encounter for other general counseling and advice on contraception Category: Social Hx Plan -----Discussed in this visit the following: healthy balanced diet, regular and consistent exercise, getting recommended health screens, doing the best she can for her particular health concerns, kegel exercises, pap smear screening and followup recommendations, mammography screening and SBE, normal changes in cycles in her life stage--- .----I reviewed available options for Control Methods and their associated side effect profiles. In particular, we discussed the method most of interest to her. Reviewed especially in her case her history of thrombocytopenia. She said that her primary care provider sent who refer to [facility] discuss planning but she has not heard about an appointment I recommend she check with her PCC office/teen here at the [facility] a on that referral. It would be optimal to have discussions with the providers that took care of her during her thrombocytopenia in the so that she could plan a she is hoping to have 1 more baby and then she wants to get her tubes tied she is aware that she would need to get all of her care from start finish at [facility] because of her history of her severe thrombocytopenia. In the meantime she is going to continue on the control pills and I recommend she also take a multivitamin every day with folic acid in preparation for future Pap smear was done as the last Pap smear was negative however there was no code testing done last year. She does have a history of ASCUS Additionally she feels well from her viral gastroenteritis that happened earlier this year and her colonoscopy that she had in [place] came out fine so she is very happy about that. Medications: Refilled norgestimate-ethinyl estradiol 0.18/0.215/0.25 mg-35 mcg (28) (Tri-Linyah) 1 tab PO DAILY 84 tabs 4RF Coding Level of Care Code Est Pt Prev Care 18-39y([address]) Diagnoses Hx of abnormal cervical Pap smear Z87.42 Well woman exam with routine gynecological exam Z01.419 Hx of thrombocytopenia Z86.2 Counseling for control, oral contraceptives Z30.09 Family planning Z30.09
== END 2023-11-24 11:04 | disposition home or self-care (01) ==
LOC: HO.HWSM 09:51
PROVIDERS: PCP Internal Medicine; Visit Provider Advanced Practice Midwife
DX: Z01.419 Encounter for gynecological examination (general) (routine) without abnormal findings (principal); Z87.42 Personal history of other diseases of the female genital tract; Z86.2 Personal history of diseases of the blood and blood-forming organs and certain disorders involving the immune mechanism; Z30.09 Encounter for other general counseling and advice on contraception
CPT/HCPCS: 99395

== ENCOUNTER 2024-02-25 16:14 | Outpatient (REF) | payer OTHER, SELFPAY ==
[2024-02-26 05:49] LABS: CT PCR NOT DETECTED (Not Detect.); NG PCR NOT DETECTED (Not Detect.)
[2024-02-26 11:06] LABS: Bacterial Vaginosis PCR NEGATIVE (Negative); Candida Group PCR NOT DETECTED (Not Detect); Candida glab krusei PCR NOT DETECTED (Not Detect); Trichomonas vaginalis PCR NOT DETECTED (Not Detect)
== END 2024-02-25 16:15 | disposition home or self-care (01) ==
LOC: HO.HHCLNP 16:14
PROVIDERS: Visit Provider Family Medicine
DX: N89.8 Other specified noninflammatory disorders of vagina (principal)
CPT/HCPCS: 0352U; 87086; 87491; 87591

== ENCOUNTER 2024-03-21 11:59 | Outpatient (REF) | payer OTHER, SELFPAY ==
[2024-03-22 14:03] LABS: Prolactin 8.7 ng/mL
== END 2024-03-21 12:00 | disposition home or self-care (01) ==
LOC: HO.HHCL 11:59
PROVIDERS: Visit Provider Advanced Practice Midwife
DX: N92.6 Irregular menstruation, unspecified (principal)
CPT/HCPCS: 36415; 84146; 84443

== ENCOUNTER 2024-04-25 19:01 | Outpatient (REF) | payer OTHER, SELFPAY ==
[2024-04-26 11:45] LABS: Bacterial Vaginosis PCR NEGATIVE (Negative); Candida Group PCR NOT DETECTED (Not Detect); Candida glab krusei PCR NOT DETECTED (Not Detect); Trichomonas vaginalis PCR NOT DETECTED (Not Detect)
== END 2024-04-25 19:02 | disposition home or self-care (01) ==
LOC: HO.HHCLNP 19:01
PROVIDERS: Visit Provider Advanced Practice Midwife
DX: N89.8 Other specified noninflammatory disorders of vagina (principal)
CPT/HCPCS: 0352U

== ENCOUNTER 2024-08-23 14:57 | Outpatient (AMB) | payer MEDICAID, SELFPAY ==
--- NOTE | 2024-08-23 14:57 | A.OFFVIS_ITS ---
Intake Visit Reasons: BC consult (nexplanon) Allergies aspirin [ASPIRIN] Allergy (Unknown, Verified 08/23/24 14:57) LOW RBC, low plaletes Medication List - Last Reconciled 08/23/24 by Sally Alfaro CNM hydroxyzine HCl 25 mg PO BEDTIME mirtazapine 15 mg PO BEDTIME sertraline 100 mg PO DAILY Is last menstrual period known: No (irregular mensis) HPI HPI BC consult (nexplanon): Details: About getting a Nexplanon put in she was taking control pills the last time I saw her in October of 2023 and she took them for a few months and then she thought she would have a baby but now she has decided that she does not want to have a baby for now so she wants a more reliable method of control additionally she still has the low platelets so she just does not think this is the right time to have a baby at this time she says her primary doctor at the [facility] Dr. natalie mcgregor checks her platelets and takes care of her. She has not been getting very regular periods since she stopped the control pills.. PFSH Medical History Hx of thrombocytopenia History of hypothyroidism No known health problems Family History Maternal Grandmother Breast CA Social History Patient Tobacco Use Status: Never used Tobacco Female Reproductive History Menstrual Age of Menarche: 14 control method: none Total pregnancies: 2 Full term: 2 Telehealth Telehealth Telehealth Platform: Telephone Location of provider rendering services: practice address Location of patient: address on file Patient Identification confirmed using: Name, : Yes Telehealth method: voice only Patient verbally consented to treatment: Yes Patient verbally consented to billing insurance company: Yes Patient informed of any privacy concerns related to visit: Yes Minutes spent on Phone/Video with Pt.: 7 (3cr/7 speaking w pt/7charting=17) Assessment & Plan Assessment & Plan (1) Family planning: Code(s): Z30.09 - Encounter for other general counseling and advice on contraception Category: Social Hx (2) Hx of thrombocytopenia: Comment: Severe during her pregnancies required IV steroids... Code(s): Z86.2 - Personal history of diseases of the blood and blood-forming organs and certain disorders involving the immune mechanism Category: Medical Plan Discussed her decision to try the Nexplanon. She did take the pills that she was given last year for a few months but then she stopped them to try to get and now she has decided not to try to have a baby anymore and she feels like this is not the right time partly because of her thrombocytopenia. She says they are fairly well-controlled at this time . She would like to get the Nexplanon explain to her that it has some changes to her periods side effects and also that we would need to insert it when she has her period and I explained why I told her that she would need to sign a consent form at the office and I suggested she go to the [facility] office as that front desk manager is more fully staffed Thursday through Thursday where as we are not in this office at the moment every single day. She is going to go to the office sign the paper and then I instructed her that when she is told it comes in then she needs to call us the minute she gets her period and we will try to see her to schedule insertion the most important thing is for her to not have any unprotected intercourse until we put in the Nexplanon so I recommend condoms till then. She does not have any other questions we will see her for Nexplanon insertion.. Coding Level of Care Code Tele Est Pt Level 3 (74991) Diagnoses Family planning Z30.09 Hx of thrombocytopenia Z86.2
--- OUTSIDE RECORDS SUMMARY | 2024-08-23 18:37 | XMS_ITS | Encounter Summary ---
Author Organization [facility] Address [address] [place] [address] [address] [place] [address] Care Team Providers Care School Lunch Manager Name Role Phone Darling Reyes MD Primary Care Provide r Encounter Details Date Type Department Care Team (Latest Contact Info) Description 08/15/2024 Travel Social History Tobacco Use Types Packs/Day Years Used Date Smoking Tobacco: Never Passive Smoke Exposure: Never Smokeless Tobacco: Never Alcohol Use Standard Drinks/Week Comments Not Currently 0 (1 standard drink = 0.6 oz pur e alcohol) Depression Answer Date Recorded Patient Health Questionnaire-9 Score 19 04/04/2024 Patient Health Questionnaire-9 Score 19 04/04/2024 Last PHQ-9: Questionnaire Data Not on file 1 06/04/2023 Housing Stability Answer Date Recorded What is your housing situation today? I have jay mora 03/16/[address] you li ve. Do you have problems with any of the following? None of the above 03/16/2023 Food Insecurity Answer Date Recorded Within the past 12 months, y ou worried that your food would run out before you got money to buy more: Never True 03/16/2023 Within the past 12 months,th e food you bought just didn't last and you didn't have enough money to get more: Never True Transportation Answer Date Recorded In the past 12 months, has l ack of transportation kept you from medical appts, meetings, work or from getting things needed for daily living? No 03/16/2023 Utilities Answer Date Recorded In the past 12 months, has t he electric, gas, oil or water company threatened to shut off services in your home? No 03/16/2023 Depression Answer Date Recorded Patient Health Questionnaire-2 Score 6 04/04/2024 Comments No Sex and Gender Information Value Date Recorded Sex Assigned at Female 03/31/2022 10:33 AM EDT Legal Sex Female 10:33 AM EDT Gender Identity Female 03/31/2022 10:33 AM EDT Sexual Orientation Choose not to disclose 2021 10:33 AM EDT documented as of this encounter Plan of Treatment Not on file documented as of this encounter Visit Diagnoses Not on filedocumented in this encounter Additional Health Concerns Assessment Noted Time PHQ-9 Depression Total Score: 19 024 11:31 AM EST documented as of this encounter Care Teams School Lunch Manager Relationship Specialty Start Date End Date Darling Reyes MD [address] [place] [address] PCP - General Family Medicine 02/10/18 documented as of this encounter
--- OUTSIDE RECORDS SUMMARY | 2024-08-23 18:37 | XMS_ITS | Clinical Summary ---
Author Organization [facility] Address [address] [id number] Care Team Providers Care Guest Relations Coordinator Name Role Phone Gisell Cedeno Primary Care Provider [phone] Allergies No known active allergies Medications No known medications Active Problems Problem Noted Date Diagnosed Date Thrombocytopenia 04/21/2018 Social History Tobacco Use Types Packs/Day Years Used Date Smoking Tobacco: Never Smokeless Tobacco: Never Alcohol Use Standard Drinks/Week Comments Not Currently 0 (1 standard drink = 0.6 oz pur e alcohol) Comments No Sex and Gender Information Value Date Recorded Sex Assigned at Female 09/21/2023 8:36 AM EDT Legal Sex Female 3:33 PM EST Gender Identity Not on file Sexual Orientation Not on file Last Filed Vital Signs Vital Sign Reading Time Taken Comments Blood Pressure 117/75 11/16/2023 12:45 PM EDT Pulse 84 11/16/2023 12:45 PM EDT Temperature 36.4 ??C (97.6 ??F) 11/16/2023 12:32 PM E DT Respiratory Rate 17 11/16/2023 12:45 PM EDT Oxygen Saturation 100% 11/16/2023 12:45 PM EDT Inhaled Oxygen Concentration - - Weight 59 kg (130 lb) 11/16/2023 11:28 AM EDT Height 165.1 cm (5' 5 ) 11/16/2023 11:28 AM EDT Body Mass Index 21.63 11/16/2023 11:28 AM EDT Plan of Treatment Health Maintenance Due Date Last Done Comments HPV and Pap Smear 1993 Varicella Vaccines (1 of 2 - 13+ 2-dose series) 2006 Hepatitis B Vaccines (1 of 3 - 19+ 3-dose series) 2012 DTaP,Tdap,and Td Vaccines (1 - Tdap) 10/15/2015 COVID-19 Vaccine ( - 2023-2 5 season) 2024 Influenza Vaccine (#1) 2024 02/23/2018 Alcohol/Substance Use Screening 06/01/2024 Cervical Cancer Screening 11/13/2025 Pap Smear 11/13/2025 11/13/2022 RSV Vaccine (60+ years old a nd patients) (1 - 1-dose 75+ series) 2068 HIV Screening Completed 06/27/2021 Pneumococcal Vaccine: Pediat cristal (0-5 Years) and At-Risk Patients (6-50 Years) Aged Out No longer eligible b ased on patient's age to complete this topic [place] [address] [address]/[place] [place] [address] Care Teams Guest Relations Coordinator Relationship Specialty Start Date End Date Gisell Cedeno [address] [place] [address] [address] [place] [address] PCP - General Internal Medicine 04/21/18
--- OUTSIDE RECORDS SUMMARY | 2024-08-23 18:37 | XMS_ITS | Encounter Summary ---
Author Organization [employer] Address [address] [place] [address] 7 [place] [address] Care Team Providers Care Real Estate Professor Name Role Phone Darling Reyes MD Primary Care Provide r Reason for Visit * Reason Onset Date Comments Medication Question 03/28/2024 Encounter Details Date Type Department Care Team ([facility] Contact Info) Description 03/28/2024 Telephone [facility] [address] [place], [place] [phone] Melissa Lopez, [facility] [address] [place] [address] Medication Question Social History Tobacco Use Types Packs/Day Years Used Date Smoking Tobacco: Never Passive Smoke Exposure: Never Smokeless Tobacco: Never Alcohol Use Standard Drinks/Week Comments Not Currently 0 (1 standard drink = 0.6 oz pur e alcohol) Depression Answer Date Recorded Patient Health Questionnaire-9 Score 0 01/06/2024 Patient Health Questionnaire-9 Score 0 01/06/2024 Last PHQ-9: Questionnaire Data Not on file 0 01/06/2024 Housing Stability Answer Date Recorded What is [...] Answer Date Recorded Patient Health Questionnaire-2 Score 0 01/06/2024 Comments No Sex and Gender Information Value Date Recorded Sex Assigned at Female 03/31/2022 10:33 AM EDT Legal Sex Female 10:33 AM EDT Gender Identity Female 03/31/2022 10:33 AM EDT Sexual Orientation Choose not to disclose 2021 10:33 AM EDT documented as of this encounter Miscellaneous Notes * Telephone Encounter - Humberto Brown - 03/28/2024 11:58 AM EDT TC from pt reports finishing her treatment of medroxyPROGESTERone (Provera) 5 MG tablet yesterday 03/28 . States still hasn't gotten her menstrual cycle . documented in this encounter Plan of Treatment Not on file documented as of this encounter Visit Diagnoses Not on filedocumented in this encounter Additional Health Concerns Assessment Noted Time PHQ-9 Depression Total Score: 0 01/06/20 24 9:57 AM EDT documented as of this encounter Care Teams Real Estate Professor Relationship Specialty Start Date End Date Darling Reyes MD [address] [place] [address] PCP - General Family Medicine 02/10/18 documented as of this encounter
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
--- OUTSIDE RECORDS SUMMARY | 2024-08-23 18:37 | XMS_ITS | Encounter Summary ---
Author Organization [employer] Address [address] [facility] [address] [place] [address] Care Team Providers Care Transfer Coordinator Name Role Phone Darling Reyes MD Primary Care Provide r Encounter Details Date Type Department Care Team ([facility] st Contact Info) Description 08/03/2023 Orders Only [facility] [address] [place], [place] [phone] Darling Reyes MD [address] [place] [address] Social History Tobacco Use Types Packs/Day Years Used Date Smoking Tobacco: Never Passive Smoke Exposure: Never Smokeless Tobacco: Never Alcohol Use Standard Drinks/Week Comments Not Currently 0 (1 standard drink = 0.6 oz pur e alcohol) Depression Answer Date Recorded Patient Health Questionnaire-9 Score 10 05/19/2023 Patient Health Questionnaire-9 Score 10 05/19/2023 Last PHQ-9: Questionnaire Data Not on file 1 07/20/2022 Housing Stability Answer Date Recorded What is [...] Answer Date Recorded Patient Health Questionnaire-2 Score 2 05/19/2023 Comments No Sex and Gender Information Value [...] Assessment Noted Time PHQ-9 Depression Total Score: 10 023 10:15 AM EST documented as of this encounter Care Teams Transfer Coordinator Relationship Specialty Start Date End Date Darling Reyes MD [address] [place] [id number] PCP - General Family Medicine 02/10/18 documented as of this encounter
--- OUTSIDE RECORDS SUMMARY | 2024-08-23 18:37 | XMS_ITS | Encounter Summary ---
Author Organization [employer] Address [address] [place] [address] 7 [place] [address] Care Team Providers Care Roll Contour Grinder Name Role Phone Darling Reyes MD Primary Care Provide r Reason for Visit * Reason Onset Date Comments Nurse Triage 08/15/2024 Encounter Details Date Type Department Care Team ([facility] st Contact Info) Description 08/15/2024 Telephone [facility] MEDICINE [address] [place], [place] [phone] Darling Reyes MD 230 [place], [place] [phone] Nurse Triage Social History Tobacco Use Types Packs/Day Years [...] encounter Miscellaneous Notes * Telephone Encounter - Margie Godfrey RN - 08/15/2024 8:38 AM EDT No exchange engineer needed as this check writer speaks Maltese. Call returned to Madeline Santizo to triage below. Reports having a lump on left breast x 1 day. Per pt closer to nipple. No nipple discharge or redness to skin. Per pt about the size of a nickel. No pain to touch. Pt advised of disposition, agreesto sick on site with PCP today for exam . Protocol Used: Breast Symptoms (Adult) Protocol-Based Disposition: See in Office or Video Visit within 3 Days Future Appointments Date Time Provider Department Center 08/15/2024 10:45 AM Darling Johnston MD [facility] 08/22/2024 3:00 PM [facility] verified as active per Real Time Eligibility in [facility]. Positive Triage Question: * Breast lump * All higher-acuity triage questions were negative Care Advice Discussed: * Reasons To Call Back - You feel a lump - Nipple discharge occurs - Change in appearance of breast - You have more questions - You become worse * Telephone Encounter - Milind Borja - 08/15/2024 8:33 AM EDT Symptom: Breast Symptoms Outcome: Schedule an urgent appointment (within 4 hours) or talk to a nurse or provider soon Reason: Painful lump The caller accepted this outcome. documented in this encounter Plan of Treatment Not on file documented as of this encounter Visit Diagnoses Not on filedocumented in this encounter Additional Health Concerns Assessment Noted Time PHQ-9 Depression Total Score: 19 024 11:31 AM EST documented as of this encounter Care Teams Roll Contour Grinder Relationship Specialty Start Date End Date Darling Reyes MD [address] [place] [address] PCP - General Family Medicine 02/10/18 documented as of this encounter
--- OUTSIDE RECORDS SUMMARY | 2024-08-23 18:37 | XMS_ITS | Encounter Summary ---
Author Organization [employer] [facility] Address [address] [place] [address] 7t [place] [address] Care Team Providers Care Ham Trimmer Name Role Phone Darling Reyes MD Primary Care Provide r Reason for Referral * Imaging (Routine) - Authorized Specialty Diagnoses / Procedures Referred By Contac t Referred To Contact Radiology Diagnoses Breast nodule Procedures BI Mammogram Diagnostic Tomosynthesis added bilateral Darling Reyes MD [address] [place] [address] Phone: tel: fax: [address] Phone: tel: fax: Referral ID Status Reason Start Date Expiration Date V isits Requested Visits Authorized [id number] Authorized 08/15/2024 08/15/2025 1 1 * Imaging (Routine) - Authorized Specialty Diagnoses / Procedures Referred By Contac t Referred To Contact Radiology Diagnoses Breast nodule Procedures BI US Breast Limited Bilateral Darling Reyes MD [address] [place] [address] Phone: tel: fax: [address] Phone: tel: fax: Referral ID Status Reason Start Date Expiration Date V isits Requested Visits Authorized [id number] Authorized 08/15/2024 08/15/2025 1 1 Reason for Visit * Reason Comments Breast Mass Encounter Details Date Type Department Care Team (Late st Contact Info) Description 08/15/2024 10:45 AM EDT Office Visit [facility] [address] [place] [address] Darling Reyes MD [address] [place] [address] Breast nodule (Primary Dx); Missed period; Muscular pain Social History Tobacco Use Types Packs/Day Years [...] AM EDT documented as of this encounter Last Filed Vital Signs Vital Sign Reading Time Taken Comments Blood Pressure 126/80 08/15/2024 10:48 AM EDT Pulse 82 08/15/2024 10:48 AM EDT Temperature 35.6 ??C (96 ??F) 08/15/2024 10:48 AM EDT Respiratory Rate 16 08/15/2024 10:48 AM EDT Oxygen Saturation - - Inhaled Oxygen Concentration - - Weight 55.6 kg (122 lb 8 oz) 08/15/2024 10:48 AM EDT Height 165.1 cm (5' 5 ) 08/15/2024 10:48 AM EDT Body Mass Index 20.39 08/15/2024 10:48 AM EDT documented in this encounter Progress Notes * Darling Johnston MD - 08/15/2024 10:45 AM EDT Images from the original note were not included. SUBJECTIVE: Madeline Santizo is a 28 y.o. year old female who presents for breast lump . 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 HENT: Negative. Respiratory: Negative. Cardiovascular: Negative. Genitourinary: Positive for menstrual problem. Musculoskeletal: Positive for arthralgias, back pain and myalgias. OBJECTIVE: Vitals: 08/15/24 1048 BP: 126/80 BP Location: Left arm Patient Position: Sitting BP Cuff Size: Adult Pulse: 82 Resp: 16 Temp: 96 ??F (35.6 ??C) TempSrc: Temporal Weight: 122 lb 8 oz (55.6 kg) Height: 5' 5 (1.651 m) Physical Exam Constitutional: Appearance: Normal appearance. Cardiovascular: Rate and Rhythm: Normal rate and regular rhythm. Pulmonary: Effort: Pulmonary effort is normal. Breath sounds: Normal breath sounds. Chest: Comments: Nodules/lumps were noticed during physical exam on her left breast at 8 o clock near areola area and at 4 o clock outer area On the right breast nodule was noticed at 7 o clock near areola area Abdominal: General: Abdomen is flat. Palpations: Abdomen is soft. Neurological: Mental Status: She is alert. Follow Up: No follow-ups on file. Current Outpatient Medications on File Prior to Visit Medication Sig Dispense Refill D3 Super Strength 50 MCG (2000 UT) capsule Take 1 capsule (50 mcg) by mouth in the morning. 90 capsule 1 famotidine (Pepcid) 20 MG tablet Take 1 tablet (20 mg) by mouth 2 times daily. 180 tablet 3 hydrOXYzine HCl (Atarax) 10 MG tablet Take 1 tablet (10 mg) by mouth if needed at bedtime for anxiety. 30 tablet 1 ketoconazole (NIZOral) 2 % shampoo Apply topically 2 (two) times a week. 120 mL 3 loratadine (Claritin) 10 MG tablet Take 1 tablet (10 mg) by mouth in the morning. 30 tablet 0 Medpura Benzoyl Peroxide 10 % external wash APPLY TOPICALLY TO THE AFFECTED AREA(S) EVERY DAY DIRECTED 237 g 1 medroxyPROGESTERone (Provera) 5 MG tablet Take 1 tablet (5 mg) by mouth Once per day for 7 days. Report if no menses by 7th day after last pill 7 tablet 0 mirtazapine (Remeron) 15 MG tablet Take 1 tablet (15 mg) by mouth at bedtime. 30 tablet 1 polycarbophil (FiberCon) 625 MG tablet Take 1 tablet (625 mg) by mouth 2 times daily. 180 tablet 3 polyethylene glycol, PEG, 3350 (MiraLax) 17 GM/SCOOP powder Take 17 g by mouth if needed each day (constipation). 527 g 3 senna-docusate sodium (Senokot-S) 8.6-50 MG tablet Take 1 tablet by mouth Once per day. 30 tablet 11 sertraline (Zoloft) 100 MG tablet Take 1 and a half tablets by mouth every morning for total dose of 150 mg. 45 tablet 1 No current facility-administered medications on file prior to visit. Problem List Items Addressed This Visit Missed period In office urine test is negative Relevant Orders POCT Urine (Completed) Breast nodule - Primary Patient will be contacted with results Relevant Orders BI US Breast Limited Bilateral BI Mammogram Diagnostic Tomosynthesis added bilateral Muscular pain Apply heat on affected area Acetaminophen as needed I prescribed for her Flexeril 5 mg to use at bedtime due to somnolence she is aware of side effectsand she knows she cannot drive while taking this medication Relevant Medications cyclobenzaprine (Flexeril) 5 MG tablet acetaminophen (Tylenol Extra Strength) 500 MG tablet documented in this encounter Miscellaneous Notes * Assessment & Plan Note - Darling Johnston MD - 08/15/2024 11:17 AM EDT Associated Problem(s): Breast nodule Patient will be contacted with results * Assessment & Plan Note - Darling Johnston MD - 08/15/2024 11:16 AM EDT Associated Problem(s): Muscular pain Apply heat on affected area Acetaminophen as needed I prescribed for her Flexeril 5 mg to use at bedtime due to somnolence she is aware of side effectsand she knows she cannot drive while taking this medication * Assessment & Plan Note - Darling Johnston MD - 08/15/2024 11:13 AM EDT Associated Problem(s): Missed period In office urine test is negative documented in this encounter Plan of Treatment Scheduled Orders Name Type Priority Associated Diagnoses Orde r Schedule BI US Breast Limited Bilateral Imaging Routine Breast nodule Expected: 08/15/2024, Expires: 10/15/2025 BI Mammogram Diagnostic Tomosynthesis added bilateral Imaging Routine Breast nodule Expected: 08/15/2024, Expires: 10/15/2025 documented as of this encounter Procedures Procedure Name Priority Date/Time Associated Diagnosis Comments POCT , URINE Routine 08/15/2024 11:13 AM EDT Missed period documented in this encounter Results * POCT Urine (08/15/2024 11:13 AM EDT) Preg Test, Ur Negative Negative, Indeterminate, None Detected, Invalid, Specimen unsatisfactory for evaluation, Weakly Positive QC Media Lot # [id number] Lot# Expiration Date 13126 Urine 08/15/2024 11:1 3 AM EDT Darling Johnston MD POINT OF CARE TEST EN TER/EDIT ORDERABLES Final Result documented in this encounter Visit Diagnoses Diagnosis Breast nodule- Primary Other (abnormal) findings on radiological examination of breast Missed period Muscular pain Unspecified myalgia and myositis documented in this encounter Additional Health Concerns Assessment Noted Time PHQ-9 Depression Total Score: 19 024 11:31 AM EST documented as of this encounter Care Teams Ham Trimmer Relationship Specialty Start Date End Date Darling Reyes MD [address] [place] [address] PCP - General Family Medicine 02/10/18 documented as of this encounter
--- OUTSIDE RECORDS SUMMARY | 2024-08-23 18:38 | XMS_ITS | Referral Summary ---
Author Organization [facility] Address [address] [id number] Care Team Providers Care Roller Cleaner Name Role Phone Gisell Cedeno Primary Care Provider [phone] Allergies No known active allergies Medications No [...] 11/16/2023 12:32 PM E DT Respiratory Rate 11/16/2023 12:45 PM EDT Oxygen Saturation 100% 11/16/2023 12:45 PM EDT Inhaled Oxygen Concentration - - Weight 59 kg (130 lb) 11/16/2023 11:28 AM EDT Height 165.1 cm (5' 5 ) 11/16/2023 11:28 AM EDT Body Mass Index 21.63 11/16/2023 11:28 AM EDT Plan of Treatment Not on file Insurance HSNO/FREE CARE [facility] Care Teams Roller Cleaner Relationship Specialty Start Date End Date Gisell Cedeno [address] [place] [address] [address] [place] [address] PCP - General Internal Medicine 04/21/18
== END 2024-08-23 15:41 | disposition home or self-care (01) ==
LOC: HO.HWS 14:57
PROVIDERS: PCP Internal Medicine; Visit Provider Advanced Practice Midwife
DX: Z30.09 Encounter for other general counseling and advice on contraception (principal); Z86.2 Personal history of diseases of the blood and blood-forming organs and certain disorders involving the immune mechanism
CPT/HCPCS: 99213

== ENCOUNTER → 2024-08-23 14:57 | Outpatient (BNVA) | payer MEDICAID, SELFPAY | PROVIDERS: PCP Internal Medicine; Visit Provider Advanced Practice Midwife ==

== ENCOUNTER 2024-08-26 12:00 | Outpatient (REF) | payer MEDICAID, SELFPAY ==
[2024-08-26 14:09] LABS: MANUAL DIFF FLAG NO
[2024-08-26 14:41] LABS: Basophils Percent Auto 0.5 % (0-2); Eosinophils Absolute Auto 0.1 X10*3/uL (0.0-0.4); Eosinophils Percent Auto 2.4 % (0-4); Hematocrit 41.7 % (37.0-47.0); Hemoglobin 13.9 g/dl (12.0-16.0); Imm Gran Abs Auto 0.01 X10*3/uL (0.00-0.03); Imm Gran Pct Auto 0.2 % (0.0-0.4); Lymphocytes Absolute Auto 1.9 X10*3/uL (1.2-4.9); Lymphocytes Percent Auto 44.9 % (20-40); Mean Corpuscular HGB Conc 33.3 g/dl (31.0-35.0); Mean Corpuscular Hemoglobin 29.6 pg (27.0-33.0); Mean Corpuscular Volume 88.7 fL (80.0-98.0); Mean Platelet Volume 10.7 fL (9.4-12.3); Monocytes Absolute Auto 0.3 X10*3/uL (0.1-1.2); Neutrophils Absolute Auto 1.8 x10*3/uL (2.0-8.3); Platelet Count 401 X10*3/uL (160-400); Red Cell Distribution Width 12.4 % (11.0-16.0); White Blood Count 4.1 X10*3/uL (4.8-10.8)
[2024-08-26 14:48] LABS: Anion Gap 10 (12-20); Blood Urea Nitrogen 9 mg/dL (9-16); Calcium 9.2 mg/dL (8.4-10.2); Carbon Dioxide 27 mmol/L (22-29); Chloride 107 mmol/L (96-108); Estimated Glomerular Filt Rate > 60; Glucose Random 77 mg/dL (60-115); Potassium 3.9 mmol/L (3.3-5.1); Sodium 140 mmol/L (135-145)
[2024-08-26 14:52] LABS: HCG Quantitative < 2 mIU/mL
[2024-08-27 11:48] LABS: C. trachomatis RNA TMA NOT DETECTED (NOT DETECTED); Candida glabrata RNA NOT DETECTED (NOT DETECTED); Candida species RNA NOT DETECTED (NOT DETECTED); N. gonorrhoeae RNA TMA NOT DETECTED (NOT DETECTED); Trichomonas vaginalis RNA NOT DETECTED (NOT DETECTED)
== END 2024-08-26 12:01 | disposition home or self-care (01) ==
LOC: HO.HHCL 12:00
PROVIDERS: Visit Provider Emergency Medicine
DX: R10.30 Lower abdominal pain, unspecified (principal)
CPT/HCPCS: 36415; 80048; 81513; 84702; 85025; 87481; 87491; 87591; 87661

== ENCOUNTER 2024-08-29 16:27 | Outpatient (REF) | payer MEDICAID, SELFPAY ==
--- OUTSIDE RECORDS SUMMARY | 2024-08-29 18:02 | XMS_ITS | Referral Summary ---
Author Organization [facility] Address [address] [phone] Care Team Providers Care Ui Architect Name Role Phone Gisell Cedeno Primary Care Provider [phone] Allergies No known active allergies Medications No [...] Treatment Not on file Insurance HSNO/[facility] Care Teams Ui Architect Relationship Specialty Start Date End Date Gisell Cedeno [address] [place] [address] [address] [place] [address] PCP - General Internal Medicine 04/21/18
--- OUTSIDE RECORDS SUMMARY | 2024-08-29 18:02 | XMS_ITS | Encounter Summary ---
Author Organization [employer] Address [address] [place] [address] 7 [place] [address] Care Team Providers Care Kitchen Lead Name Role Phone Darling Reyes MD Primary Care Provide r Reason for Visit * Reason Onset Date Comments Nurse Triage 08/25/2024 Encounter Details Date Type Department Care Team ([facility] st Contact Info) Description 08/25/2024 Telephone [facility] MEDICINE 230 [place], [place] [phone] Darling Reyes MD [address] [place], [place] [phone] Nurse Triage Social History Tobacco Use Types [...] encounter Miscellaneous Notes * Telephone Encounter - Merlyn Winters RN - 08/25/2024 9:30 AM EDT Called pt. Via [employer] outside sales executive [phone] True. Pt. States that she has been having low back pain xfew days. Pt. Has pain with urination and urine is bright yellow. Pt. Does take prenantal vitamins but is not . No fever. No thoughts of STI. Protocol Used: Urination Pain - Female (Adult) Protocol-Based Disposition: Go to Office or Video Visit Now- Pt. Will go to [facility] walk in now Video visit offer not recorded Positive Triage Questions: * Severe pain with urination * Side (flank) or lower back pain present * All higher-acuity triage questions were negative Care Advice Discussed: * Reassurance and Education - Possible Urine Infection * Drink Extra Fluids * Drink Extra Fluids - Extra Notes and Warnings * Telephone Encounter - Milind Borja - 08/25/2024 8:58 AM EDT Symptoms: Back Pain - Not From Injury, Urination Pain Outcome: Schedule an urgent appointment (within 1 hour) or talk to a nurse or provider soon Reason: Severe pain now The caller accepted this outcome. documented in this encounter Plan of Treatment Not on file documented as of this encounter Visit Diagnoses Not on filedocumented in this encounter Additional Health Concerns Assessment Noted Time PHQ-9 Depression Total Score: 19 024 11:31 AM EST documented as of this encounter Care Teams Kitchen Lead Relationship Specialty Start Date End Date Darling Reyes MD [address] [place] [address] PCP - General Family Medicine 02/10/18 documented as of this encounter
--- OUTSIDE RECORDS SUMMARY | 2024-08-29 18:02 | XMS_ITS | Encounter Summary ---
Author Organization [employer] Address [address] 7t [place] [address] Care Team Providers Care Gas Desulfurizer Name Role Phone Darling Reyes MD Primary Care Provide r Encounter Details Date Type Department Care Team ([facility] st Contact Info) Description 08/28/2024 Orders Only [facility] [address] [place] [phone] George Knapp MD [address] [place], [place] [phone] Dysuria (Primary Dx) Social History Tobacco Use Types Packs/Day Years [...] as of this encounter Plan of Treatment Scheduled Orders Name Type Priority Associated Diagnoses Orde r Schedule Culture, Urine, Routine Microbiology Routine Dysuria Expected: 08/28/2024 (Approximate), Expires: 08/28/2025 documented as of this encounter Visit Diagnoses Diagnosis Dysuria- Primary documented in this encounter Additional Health Concerns Assessment Noted Time PHQ-9 Depression Total Score: 19 024 11:31 AM EST documented as of this encounter Care Teams Gas Desulfurizer Relationship Specialty Start Date End Date Darling Reyes MD [address] [place] [address] PCP - General Family Medicine 02/10/18 documented as of this encounter
--- OUTSIDE RECORDS SUMMARY | 2024-08-29 18:02 | XMS_ITS | Encounter Summary ---
Author Organization [employer] Address [address] [facility] 7t [place] [address] Care Team Providers Care Retail Interior Designer Name Role Phone Darling Reyes MD Primary Care Provide r Reason for Visit * Reason Onset Date Comments Results 08/29/2024 Encounter Details Date Type Department Care Team ([facility] st Contact Info) Description 08/29/2024 Telephone [facility] 230 [place] [address] Mary Mata, MARY Results Social History Tobacco Use Types Packs/Day Years [...] encounter Miscellaneous Notes * Telephone Encounter - Mary Mata RN - 08/29/2024 9:12 AM EDT TC to pt to relay message from MD as per below. Using [facility] interpreter translator ID# [id number] for Montenegrin. Pt informed of test results. Pt endorses taking the Macrobid. States she doesn't have a thermometer, but thinks she may have a temp . Pt. states she has been taking tylenol and motrin but has mild back pain . D/W pt recommendation for urine C/S to which she is agreeable, Rec. Pt be re assessed regarding c/o back pain ? Temp. Pt is agreeable to coming into [facility] today, time TBD. ----- Message from George Knapp MD sent at 08/28/2024 9:06 AM EDT ----- Please let Madeline know that her blood tests were unchanged from prior, and vaginal swab tests were all normal. If she still has symptoms, could she go to the lab to give a urine specimen for C&S which appears to never have been done?? She was prescribed Macrobid for possible UTI in [facility]. She declined going to the ED for further evaluation of abdominal pain when she was in [facility]; she was advised to go if pain did not improve. Thanks. Deven documented in this encounter Plan of Treatment Not on file documented as of this encounter Visit Diagnoses Not on filedocumented in this encounter Additional Health Concerns Assessment Noted Time PHQ-9 Depression Total Score: 19 024 11:31 AM EST documented as of this encounter Care Teams Retail Interior Designer Relationship Specialty Start Date End Date Darling Reyes MD [address] [place] [address] PCP - General Family Medicine 02/10/18 documented as of this encounter
--- OUTSIDE RECORDS SUMMARY | 2024-08-29 18:02 | XMS_ITS | Encounter Summary ---
Author Organization [employer] Address [address] [place] [address] 7 [place] [address] Care Team Providers Care Clinical Biochemist Name Role Phone Darling Reyes MD Primary Care Provide r Reason for Visit * Reason Onset Date Comments Medication Question 03/28/2024 Encounter Details Date Type Department Care Team ([facility] Contact Info) Description 03/28/2024 Telephone [facility] MEDICINE [address] [place], [place] [phone] Melissa Lopez, [facility] [address] [place] [address] Medication Question Social History Tobacco Use Types [...] documented as of this encounter Care Teams Clinical Biochemist Relationship Specialty Start Date End Date Darling Reyes MD [address] [place] [address] PCP - General Family Medicine 02/10/18 documented as of this encounter
--- OUTSIDE RECORDS SUMMARY | 2024-08-29 18:02 | XMS_ITS | Encounter Summary ---
Author Organization [employer] Address [address] [facility] 7t [place] [address] Care Team Providers Care Files Supervisor Name Role Phone Darling Reyes MD Primary Care Provide r Encounter Details Date Type Department Care Team ([facility] st Contact Info) Description 08/24/2024 Population Health Risk Score [facility] (C3) Department [address] [phone] Provider, Population Health Generic Social History Tobacco Use Types Packs/Day Years [...] documented as of this encounter Care Teams Files Supervisor Relationship Specialty Start Date End Date Darling Reyes MD 230 [place] [address] PCP - General Family Medicine 02/10/18 documented as of this encounter
--- OUTSIDE RECORDS SUMMARY | 2024-08-29 18:02 | XMS_ITS | Clinical Summary ---
Author Organization [facility] Address [address] [phone] Care Team Providers Care Chuck Boner Name Role Phone Gisell Cedeno Primary Care Provider [phone] Allergies No known active allergies Medications No [...] 11/13/2025 11/13/2022 RSV Vaccine (60+ years old and patients) (1 - 1-dose 75+ series) 2068 HIV Screening Completed 06/27/2021, 06/27/2021 Pneumococcal Vaccine: Pediatric (0-5 Years) and At-Risk Patients (6-50 Years) Aged Out No longer eligible based on patient's age to complete this topic Insurance /[place] [address] [place] [address] Care Teams Chuck Boner Relationship Specialty Start Date End Date Gisell Cedeno [address] [place] [address] PCP - General Internal Medicine 04/21/18
--- OUTSIDE RECORDS SUMMARY | 2024-08-29 18:02 | XMS_ITS | Encounter Summary ---
Author Organization [employer] Address [address] [facility] 7t [place] [address] Care Team Providers Care Second Facing Baster Name Role Phone Darling Reyes MD Primary Care Provide r Reason for Visit * Reason Onset Date Comments WIC/telephone triage 08/29/2024 Encounter Details Date Type Department Care Team ([facility] st Contact Info) Description 08/29/2024 Telephone [facility] [address] [place] [address] Mary Mata RN WIC/telephone triage Social History Tobacco Use Types Packs/Day Years [...] Encounter - Mary Mata RN - 08/29/2024 10:49 AM EDT Pt called earlier this AM re: message as per below. MD requests urine C/S be obtained and sent. Pt was unsure if she has a temp. Described mild back pain. agreed to come into [facility] for urine C/S basil corralCinthya 08/29/24 9:12 AM Note TC to pt to relay message from as per below. Using [employer] propellant assembler ID# [id number] for Chinese. Pt informed of test results. Pt endorses [...] Temp. Pt is agreeable to coming into [facility] today, time TBD. Message from George Knapp MD sent at [...] was prescribed Macrobid for possible UTI in [facility]. She declined going to the ED for further evaluation of abdominal pain when she was in [facility]; she was advised to go if pain did not improve. documented in this encounter Plan of Treatment Not on file documented as of this encounter Visit Diagnoses Not on filedocumented in this encounter Additional Health Concerns Assessment Noted Time PHQ-9 Depression Total Score: 19 024 11:31 AM EST documented as of this encounter Care Teams Second Facing Baster Relationship Specialty Start Date End Date Darling Reyes MD [address] [place] [address] PCP - General Family Medicine 02/10/18 documented as of this encounter
--- OUTSIDE RECORDS SUMMARY | 2024-08-29 18:02 | XMS_ITS | Clinical Summary ---
Author Organization [employer] Address [address] [place] [address] [address] [place] [address] Care Team Providers Care Sumac Tanner Name Role Phone Darling Reyes MD Primary [...] days. 20 tablet 08/16/19 25 025 Active mirtazapine (Remeron) [...] 30 tablet 1 08/23/19 25 025 Active acetaminophen (Tylenol) 500 MG tablet Take 2 tablets (1,000 mg) by mouth every 6 (six) hours if needed for moderate pain or fever for up to 25 doses. 50 tablet 08/27/19 25 Active nitrofurantoin, macrocrystal-mo nohydrate, (Macrobid) 100 MG capsule Take 1 capsule (100 mg) by mouth 2 times daily for 5 days. 10 capsule 08/27/19 25 025 Active mirtazapine (Remeron) 15 MG tabletIndicatio ns:Severe episode of recurrent major depressive disorder, without psychotic features (CMS/HCC),Anxie ty,Primary insomnia Take 1 tablet (15 mg) by mouth at bedtime. 30 tablet 1 06/21/19 025 Discontinued(Re order (will not trigger notification [...] order (will not trigger notification to Pharmacy)) acetaminophen (Tylenol Extra Strength) 500 MG tabletIndicatio ns:Muscular pain Take 2 tablets (1,000 mg) by mouth every 8 (eight) hours if needed for mild pain for up to 10 days. 30 tablet 08/16/19 25 025 Active Problems Problem Noted Date Diagnosed Date [...] PRN I will start her on sertraline BHN called today to connect her RTC 4 [...] Behavioral Health Integration Plan Follow up with [facility]. Madeline agrees to f/u for OP therapy. She reports receiving phone call, but does not recall the name of agency, but will reach out to [facility], as therapist cancelled previous telehealth visit. [...] for support PLAN: 1. Follow up with [facility]: Not recommended for follow-up 2. Patient goal [...] AM EST): I advise to come to [facility] for evaluation and testing Drink plenty of fluids and rest Encounters * This document contains information received from the source organization and may not represent a complete record from that organization. Date Type Department Care Team Description 08/29/2024 Telephone [facility] [address] [place] [phone] Mary Mata, RN [facility]/telephone triage 08/29/2024 Telephone [facility] [address] [place] [phone] Mary Mata RN Results 08/28/2024 Orders Only [facility] [address] [place] [phone] George Knapp MD Dysuria (Primary Dx) 08/26/2024 10:20 AM EDT Office Visit [facility] [address] [place] [phone] George Knapp MD Abdominal pain, lower (Primary Dx); Acute bilateral low back pain without sciatica; Dysuria 08/25/2024 Telephone [facility] MEDICINE [address] [place] [phone] Darling Reyes MD Nurse Triage 08/24/2024 Population Health Risk Score [facility] ([facility]) Department [address] [place] [phone] Provider, Population Health Generic 08/15/2024 10:45 AM EDT Office Visit [address] [phone] Darling Reyes MD Breast nodule (Primary Dx); Missed period; Muscular pain 08/15/2024 Travel 08/15/[address] [phone] Darling Reyes MD Nurse Triage 07/12/[address] [phone] Darling Reyes MD Nurse Triage 07/06/[address] [phone] Anjali Rodriguez MD Acne vulgaris from Last [...] Sign Reading Time Taken Comments Blood Pressure 117/73 08/26/2024 10:30 AM EDT Pulse 77 08/26/2024 10:30 AM EDT Temperature 36.7 ??C (98 ??F) 08/26/2024 10:30 AM EDT Respiratory Rate 18 08/26/2024 10:30 AM EDT Oxygen Saturation 99% 08/26/2024 10:30 AM EDT Inhaled Oxygen Concentration - - Weight 56.5 kg (124 lb 9.6 oz) 08/26/2024 10:30 AM EDT Height 165.1 cm (5' 5 ) 08/26/2024 10:30 AM EDT Body Mass Index 20.73 08/26/2024 10:30 AM EDT Plan of Treatment Health Maintenance [...] Family Planning (PISQ) 04/25/2025 04/25/2024 Tobacco Screening 08/26/2025 08/26/2024 Cervical Cancer Screening 11/13/2025 Pap Smear 11/13/2025 [...] Procedure Name Priority Date/Time Associated Diagnosis Comments HCG, TOTAL, QN Routine 08/26/2024 12:00 PM EDT Abdominal pain, lower CBC WITH AUTO DIFFERENTIAL Routine 08/26/2024 12:00 PM EDT Abdominal pain, lower BASIC METABOLIC PANEL Routine 08/26/2024 12:00 PM EDT Abdominal pain, lower POCT , URINE Routine 08/26/2024 10:37 AM EDT Abdominal pain, lower POCT URINALYSIS DIPSTICK Routine 08/26/2024 10:37 AM EDT Abdominal pain, lower SURESWAB(R) ADVANCED VAGINITIS PLUS, TMA Routine 08/26/2024 12:00 AM EDT Abdominal pain, lower POCT , URINE Routine 08/15/2024 11:13 AM EDT Missed period PAP SMEAR Routine 11/13/2022 1:12 PM EDT ZZZ HISTORICAL HEPATITIS C AB W/REFL TO HCV RNA, QN, PCR Routine 06/27/2021 11:08 AM EST HIV 1/2 ANTIGEN/ANTIBODY, FOURTH GENERATION W/RFL Routine 06/27/2021 11:08 AM EST from Last 3 Months or Most Recently Relevant to Health Maintenance Results * (ABNORMAL) CBC auto differential (08/26/2024 12:00 PM EDT) White Blood Count 4.1(L) 4.8 - 10.8 X10*3/uL [facility] Red Blood Count 4.70 4.20 - 5.50 X10*6/uL [facility] Hemoglobin 13.9 12.0 - 16.0 g/dl [facility] Hematocrit 41.7 37.0 - 47.0 % [facility] Mean Corpuscular Volume 88.7 80.0 - 98.0 fL [facility] Mean Corpuscular Hemoglobin 29.6 27.0 - 33.0 pg [facility] Mean Corpuscular HGB Conc 33.3 31.0 - 35.0 g/dl [facility] Red Cell Distribution Width 12.4 11.0 - 16.0 % [facility] Platelet Count 401(H) 160 - 400 X10*3/uL [facility] Mean Platelet Volume 10.7 9.4 - 12.3 fL [facility] Neutrophils Percent Auto 44.0(L) 45 - 73 % [facility] Imm Gran Pct Auto 0.2 0.0 - 0.4 % [facility] Lymphocytes Percent Auto 44.9(H) 20 - 40 % [facility] Monocytes Percent Auto 8.0 2 - 11 % [facility] Eosinophils Percent Auto 2.4 0 - 4 % [facility] Basophils Percent Auto 0.5 0 - 2 % [facility] NRBC Pct Auto 0.0 0.0 - 0.2 /100WBC [facility] Neutrophils Absolute Auto 1.8(L) 2.0 - 8.3 x10*3/uL [facility] Imm Gran Abs Auto 0.01 0.00 - 0.03 X10*3/uL [facility] Lymphocytes Absolute Auto 1.9 1.2 - 4.9 X10*3/uL [facility] Monocytes Absolute Auto 0.3 0.1 - 1.2 X10*3/uL [facility] Eosinophils Absolute Auto 0.1 0.0 - 0.4 X10*3/uL [facility] Basophils Absolute Auto 0.0 0.0 - 0.2 X10*3/uL [facility] NRBC Abs Auto 0.000 0.0 - 0.012 X10*3/uL [facility] Blood Venous blood specimen / Unknown 08/26/2024 12:00 PM EDT 08/26/2024 2:07 PM EDT us George Knapp MD LAB BLOOD ORDERABLES Final Resul t Performing Organization Address City/[facility] Co de Phone Number [facility] [address] [place] [address] [phone] * hCG, Total, Quantitative (08/26/2024 12:00 PM EDT) HCG Quantitative <2 mIU/mL [facility] Comment:Weeks post LMP Appr oximate hCG(Last Menstrual Period) Range (mIU/ml)3 - 4 weeks 9 - 1304 - 5 weeks 75 - 2,6005 - 6 weeks 850 - 20,8006 - 7 weeks 4000 - 100,2007 - 12 weeks 11,500 - 289,76324 - 16 weeks 18,300 - 137,87661 - 29 weeks (2nd trimester) 1,400 - 53,65838 - 41 weeks (3rd trimester) 940 - 60,000The Juárez B-hCG assay is used for the early detection ofpregnancy; it cannot be used to diagnose any conditionunrelated to . If a B-hCG level is not supportedby the clinical evidence, results should be confirmed by analternative method (qualitative urine hCG, for example). Blood Venous blood specimen / Unknown 08/26/2024 12:00 PM EDT 08/26/2024 2:07 PM EDT us George Knapp MD LAB BLOOD ORDERABLES Final Resul t Performing Organization Address [facility]/ZIP Co de Phone Number [facility] [address] [place] [address] [phone] * (ABNORMAL) Basic Metabolic Panel (08/26/2024 12:00 PM EDT) Sodium 140 135 - 145 mmol/L [facility] Potassium 3.9 3.3 - 5.1 mmol/L [facility] Chloride 107 96 - 108 mmol/L [facility] Carbon Dioxide 27 22 - 29 mmol/L [facility] Anion Gap 10(L) 12 - 20 [facility] Urea Nitrogen (BUN) 9 9 - 16 mg/dL [facility] Creatinine, Serum 0.70 0.5 - 1.4 mg/dL [facility] Estimated Glomerular Filt Rate >60 [facility] Comment:Chronic Kidney Disea se: Estimated GFR < 60 mL/min/1.12x1Kpyirs Kidney Disease: Estimated GFR < 15 mL/min/1.73m2 Glucose 77 60 - 115 mg/dL [facility] Calcium 9.2 8.4 - 10.2 mg/dL [facility] Blood Venous blood specimen / Unknown 08/26/2024 12:00 PM EDT 08/26/2024 2:07 PM EDT us George Knapp MD LAB BLOOD ORDERABLES Final Resul t [facility] [address] [place] [phone] * POCT , urine manually resulted (08/26/2024 10:37 AM EDT) Only the most recent of2 resultswithin the time period is included. Preg Test, Ur Negative Negative, Indeterminate, None Detected, Invalid, Specimen unsatisfactory for evaluation, Weakly Positive Urine 08/26/2024 10:3 7 AM EDT us George Knapp MD POINT OF CARE TEST ENTER/EDIT OR DERABLES Final Result * POCT urinalysis dipstick manually resulted (08/26/2024 10:37 AM EDT) Color, UA Yellow Clarity, UA Cloudy Glucose, UA Negative Bilirubin, UA Negative Ketones, UA Negative Spec Grav, UA 1.020 Blood, UA Negative Negative, None Detected pH, UA 7.0 Protein, UA Negative Urobilinogen, UA 0.2 Leukocytes, UA Negative Negative, Rare, Trace Nitrite, UA Negative Negative, None Detected Urine 08/26/2024 10:3 7 AM EDT us George Knapp MD POINT OF CARE TEST ENTER/EDIT OR DERABLES Final Result * SureSwab?? Advanced Vaginitis Plus, TMA (08/26/2024 12:00 AM EDT) CTNG Ref Lab NOT DETECTED NOT DETECTED [facility] NG Ref Lab NOT DETECTED NOT DETECTED [facility] Comment:For additional infor robe, please refer tohttps://education.[employer]/faq/MML004(This link is being provided for information/educational purposes only.)THIS TEST WAS PERFORMED AT:[employer] [place] [phone] ROCHA MD SureSwab 9R) ADV Bacterial Vaginosis (BV), TMA NEGATIVE NEGATIVE [facility] Noa Species NOT DETECTED NOT DETECTED [facility] Noa glabrata NOT DETECTED NOT DETECTED [facility] Comment:Noa species C. a lbicans, C. tropicalis,C. parapsilosis, and/or C. dubliniensis can be detected,but not differentiated, in the Noa spp. result. Trichomonas vaginalis (TV), TMA NOT DETECTED NOT DETECTED [facility] 08/26/2024 08/26/2024 us George Knapp MD LAB BODY FLUIDS AND STOOLS ORDER JACK Final Result [facility] [address] [place] [phone] [phone] * Pap Smear (11/13/2022 1:12 PM EDT) 11/13/2022 1:12 PM EDT 11/14/2022 8:00 AM EDT Narrative [facility] - 12/10/2022 11:35 AM EDT ----- ------- Name: Madeline Santizo ? Age/Sex: 27/F ? : 1995 Unit#: [id number] ?? Attend Dr: Sally Alfaro CNM ?Re11/13/22 ?Status: DEP REF ? Location: HO.LNP ?Disch: ? ----- ------- SPEC : [id number] ? RECD: 11/14/22 ? STATUS: ??SOUT ? REQ NUM: [id number] ? NAVYA: 11/13/22-1312 ? SUBM DR: Sally Alfaro CNM ? ENTERED: ??11/14/22 ?SP TYPE: Pap Smr ?OTHR DR: Darling Reyes MD ? ORDERED: ??Pap Smear ? Interpretation ?? Satisfactory for evaluation. ?? Negative for intraepithelial lesion or malignancy. ?Clinical Information LMP: 10/13/22 (approximately) Previous PAP test: 12/28/17, ASCUS ? Material Received ?? ThinPrep-Cervical Copies To: ?? Darling Reyes MD ?? [address] ?? [place] [address] ?? [phone] ?? Sally Alfaro CNM ?? [address] [facility] ?? [place] [address] ?? [phone] ----- ------- Signed (signature on file) TRAVIS Bray (ASCP) 12/10/22 1135 ? ----- ------- ? END OF REPORT ? us [facility] External Provider LAB CYT OLOGY ORDERABLES Final Result [facility] [address] [place] [address] [phone] * HEPATITIS C AB W/REFL TO HCV RNA, QN, PCR (06/27/2021 11:08 AM EST) HEPATITIS C ANTIBODY NON-REACT LYLA NON-REACT LYLA [facility] INDEX 0.01 <1.00 [facility] Comment: ?? HCV antibody was non-reactive. There is no laboratory ?? evidence of HCV infection. ?? In most cases, no further action is required. However, if recent HCV exposure is suspected, a test for HCV RNA (test code 55724) is suggested. ?? For additional information please refer to http://[employer]API.[employer]/faq/FXK20i8 (This link is being provided for informational/ educational purposes only.) ?? 06/27/2021 11:0 8 AM EST us Darling Johnston MD HISTORICAL/NON ORDERA BLE LABS Final Result Performing Organization Address City/[facility]/ZIP Co de Phone Number [facility] [address] * HIV 1/2 ANTIGEN/ANTIBODY,FOURTH GENERATION W/RFL (06/27/2021 11:08 AM EST) HIV-1/2 ANTIGEN AND ANTIBODIES, 4TH GENERATION W/ REFLEX NON-REACT LYLA NON-REACT LYLA [facility] Comment: HIV-1 antigen and HIV-1/HIV-2 [...] ? For additional information please refer to http://[employer]API.[employer]/faq/WLE020 (This link is being provided for informational/ educational purposes only.) ? The performance of this assay has not been clinically validated in patients less than 2 years old. ?? 06/27/2021 11:0 8 AM EST Darling Johnston MD LAB BLOOD ORDERABLES Final Result Performing Organization Address City/State/[facility] Co de Phone Number [facility] [address] from Last 3 Months or Most Recently Relevant to Health Maintenance Insurance [place] [place] [phone] Care Teams Sumac Tanner Relationship Specialty Start Date End Date Darling Reyes MD [address] [place] [address] PCP - General Family Medicine 02/10/18
--- OUTSIDE RECORDS SUMMARY | 2024-08-29 18:02 | XMS_ITS | Encounter Summary ---
Author Organization [employer] Address [address] [facility] [address] [place] [address] Care Team Providers Care College Professor Name Role Phone Darling Reyes MD Primary Care Provide r Reason for Visit * Reason Comments Abdominal Pain Encounter Details Date Type Department Care Team ([facility] st Contact Info) Description 08/26/2024 10:20 AM EDT Office Visit [facility] [address], [place] [phone] George Knapp MD [address] [place] [address] Abdominal pain, lower (Primary Dx); Acute bilateral low back pain without sciatica; Dysuria Social History Tobacco Use Types Packs/Day Years [...] Mass Index 20.73 08/26/2024 10:30 AM EDT documented in this encounter Progress Notes * George Knapp MD - 08/26/2024 10:20 AM EDT Subjective Patient ID: Madeline Santizo is a 28 y.o. female. 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 Did not mention her abd pain during visit. She came into walk-in clinic today because of 2 week h/o constant suprapubic and bilat back pain, nothing makes it better or worse. Unable to sleep due to pain. Has burning on urination, odor, frequency, urgency. + vaginal discharge. No fever, n/v/diarrhea. Tylenol, ibuprofen don't help. No h/o abd surgery. Lives with and 2 children. Last menstrual period=4 months ago, states h/o irreg menses. Not taking control. Not employed. Never smoked. 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 Respiratory: Negative for shortness of breath. Cardiovascular: Negative for chest pain. Gastrointestinal: Positive for abdominal pain and nausea. Negative for diarrhea and vomiting. Genitourinary: Positive for dysuria, frequency, menstrual problem, urgency and vaginal discharge. Negative for flank pain. Musculoskeletal: Positive for back pain. Skin: Negative for rash. Neurological: Negative for headaches. Objective Physical Exam Constitutional: Appearance: Normal appearance. HENT: Nose: Nose normal. Eyes: Conjunctiva/sclera: Conjunctivae normal. Pupils: Pupils are equal, round, and reactive to light. Cardiovascular: Rate and Rhythm: Normal rate and regular rhythm. Heart sounds: No murmur heard. Pulmonary: Effort: Pulmonary effort is normal. Breath sounds: Normal breath sounds. Abdominal: General: Abdomen is flat. Palpations: Abdomen is soft. Tenderness: There is abdominal tenderness (mild sprapubic and across upper abd). There is no right CVA tenderness, left CVA tenderness, guarding or rebound. Musculoskeletal: General: Normal range of motion. Cervical back: No tenderness. Comments: Mild tenderness across lower back. Skin: Findings: No rash. Neurological: Mental Status: She is alert. Gait: Gait is intact. Psychiatric: Mood and Affect: Mood normal. Behavior: Behavior normal. Procedures Assessment/Plan Diagnoses and all orders for this visit: Abdominal pain, lower Unclear etiology. Discussed going to the ED now, but she declined. Blood test ordered. Will call patient with results. Prescribed Tylenol. Go to ED if not improving. - POCT urinalysis dipstick manually resulted - POCT , urine manually resulted - SureSwab?? Advanced Vaginitis Plus, TMA - Basic Metabolic Panel; Future - CBC auto differential; Future - hCG, Total, Quantitative; Future Acute bilateral low back pain without sciatica Prescribed Tylenol as above. Return to clinic if not improving. Dysuria UCG, U/a neg. Urine C&S, self vaginal swabs for BV panel and GC/CT pending. Prescribed Macrobid pending urine culture results. Other orders - acetaminophen (Tylenol) 500 MG tablet; Take 2 tablets (1,000 mg) by mouth every 6 (six) hours if needed for moderate pain or fever for up to 25 doses. - nitrofurantoin, macrocrystal-monohydrate, (Macrobid) 100 MG capsule; Take 1 capsule (100 mg) by mouth 2 times daily for 5 days. documented in this encounter Plan of Treatment Not on file documented as of this encounter Procedures Procedure Name Priority Date/Time Associated Diagnosis Comments CBC WITH AUTO DIFFERENTIAL Routine 08/26/2024 12:00 PM EDT Abdominal pain, lower HCG, TOTAL, QN Routine 08/26/2024 12:00 PM EDT Abdominal pain, lower BASIC METABOLIC PANEL Routine 08/26/2024 12:00 PM EDT Abdominal pain, lower POCT , URINE Routine 08/26/2024 10:37 AM EDT Abdominal pain, lower POCT URINALYSIS DIPSTICK Routine 08/26/2024 10:37 AM EDT Abdominal pain, lower SURESWAB(R) ADVANCED VAGINITIS PLUS, TMA Routine 08/26/2024 12:00 AM EDT Abdominal pain, lower documented in this encounter Results * hCG, Total, Quantitative (08/26/2024 12:00 PM EDT) HCG Quantitative <2 mIU/mL [facility] Comment:Weeks post LMP Appro ximate hCG(Last Menstrual Period) Range (mIU/ml)3 - 4 weeks 9 - 1304 - 5 weeks 75 - 2,6005 - 6 weeks 850 - 20,8006 - 7 weeks 4000 - 100,2007 - 12 weeks 11,500 - 289,58232 - 16 weeks 18,300 - 137,52893 - 29 weeks (2nd trimester) 1,400 - 53,58074 - 41 weeks (3rd trimester) 940 - 60,000The Juárez B- hCG assay is used for the early detection [...] MD LAB BLOOD ORDERABLES Final Resul t [facility] [address] [place] [phone] * (ABNORMAL) CBC auto differential (08/26/2024 12:00 PM EDT) White Blood Count 4.1(L) 4.8 - 10.8 X10*3/uL [facility] Red Blood Count 4.70 4.20 - 5.50 X10*6/uL [facility] Hemoglobin 13.9 12.0 - 16.0 g/dl [facility] Hematocrit 41.7 37.0 - 47.0 % [facility] Mean Corpuscular Volume 88.7 80.0 - 98.0 fL [facility] Mean Corpuscular Hemoglobin 29.6 27.0 - 33.0 pg [facility] Mean Corpuscular HGB Conc 33.3 31.0 - 35.0 g/dl [facility] Red Cell Distribution Width 12.4 11.0 - 16.0 % [facility] Platelet Count 401(H) 160 - 400 X10*3/uL [facility] Mean Platelet Volume 10.7 9.4 - 12.3 fL [facility] Neutrophils Percent Auto 44.0(L) 45 - 73 % [facility] Imm Gran Pct Auto 0.2 0.0 - 0.4 % [facility] Lymphocytes Percent Auto 44.9(H) 20 - 40 % [facility] Monocytes Percent Auto 8.0 2 - 11 % [facility] Eosinophils Percent Auto 2.4 0 - 4 % [facility] Basophils Percent Auto 0.5 0 - 2 % [facility] NRBC Pct Auto 0.0 0.0 - 0.2 /100WBC [facility] Neutrophils Absolute Auto 1.8(L) 2.0 - 8.3 x10*3/uL [facility] Imm Gran Abs Auto 0.01 0.00 - 0.03 X10*3/uL [facility] Lymphocytes Absolute Auto 1.9 1.2 - 4.9 X10*3/uL [facility] Monocytes Absolute Auto 0.3 0.1 - 1.2 X10*3/uL [facility] Eosinophils Absolute Auto 0.1 0.0 - 0.4 X10*3/uL [facility] Basophils Absolute Auto 0.0 0.0 - 0.2 X10*3/uL [facility] NRBC Abs Auto 0.000 0.0 - 0.012 X10*3/uL [facility] Blood Venous blood specimen / Unknown 08/26/2024 12:00 PM EDT 08/26/2024 2:07 PM EDT us George Knapp MD LAB BLOOD ORDERABLES Final Resul t [facility] [address] [place] [phone] * (ABNORMAL) Basic Metabolic Panel (08/26/2024 12:00 PM EDT) Sodium 140 135 - 145 mmol/L [facility] Potassium 3.9 3.3 - 5.1 mmol/L [facility] Chloride 107 96 - 108 mmol/L [facility] Carbon Dioxide 27 22 - 29 mmol/L [facility] Anion Gap 10(L) 12 - 20 [facility] Urea Nitrogen (BUN) 9 9 - 16 mg/dL [facility] Creatinine, Serum 0.70 0.5 - 1.4 mg/dL [facility] Estimated Glomerular Filt Rate >60 [facility] Comment:Chronic Kidney Disea se: Estimated GFR < 60 mL/min/1.96a1Uzcwxd Kidney Disease: Estimated GFR < 15 mL/min/1.73m2 Glucose 77 60 - 115 mg/dL [facility] Calcium 9.2 8.4 - 10.2 mg/dL [facility] Blood Venous blood specimen / Unknown 08/26/2024 12:00 PM EDT 08/26/2024 2:07 PM EDT us George Knapp MD LAB BLOOD ORDERABLES Final Resul t [facility] [address] [place] [phone] * POCT , urine manually resulted (08/26/2024 10:37 AM EDT) Preg Test, Ur Negative Negative, [...] CTNG Ref Lab NOT DETECTED NOT DETECTED [facility] NG Ref Lab NOT DETECTED NOT DETECTED [facility] Comment:For additional infor mation, please refer [email or web address](This link is being provided for information/educational purposes only.)THIS TEST WAS PERFORMED AT:[employer] [place] [phone] ROCHA MD SureSwab 9R) ADV Bacterial Vaginosis (BV), TMA NEGATIVE NEGATIVE [facility] Noa Species NOT DETECTED NOT DETECTED [facility] Noa glabrata NOT DETECTED NOT DETECTED [facility] Comment:Noa species C. a lbicans, C. tropicalis,C. parapsilosis, and/or C. dubliniensis can be detected,but not differentiated, in the Noa spp. result. Trichomonas vaginalis (TV), TMA NOT DETECTED NOT DETECTED [facility] 08/26/2024 08/26/2024 us George Knapp MD LAB BODY FLUIDS AND STOOLS ORDER JACK Final Result [facility] [address] [place] [phone] documented in this encounter Visit Diagnoses Diagnosis Abdominal pain, lower- Primary Abdominal pain, other specified site Acute bilateral low back pain without sciatica Dysuria documented in this encounter Additional Health Concerns Assessment Noted Time PHQ-9 Depression Total Score: 19 04/04/ 024 11:31 AM EST documented as of this encounter Care Teams College Professor Relationship Specialty Start Date End Date Darling Reyes MD [address] [place] [address] PCP - General Family Medicine 02/10/18 documented as of this encounter
--- OUTSIDE RECORDS SUMMARY | 2024-08-29 18:02 | XMS_ITS | Encounter Summary ---
Author Organization [employer] Address [address] [facility] [address] [place] [address] Care Team Providers Care Potato Chip Processing Supervisor Name Role Phone Darling Reyes MD Primary Care Provide r Encounter Details Date Type Department Care Team ([facility] st Contact Info) Description 08/03/2023 Orders Only [facility] [address], [place] [phone] Darling Reyes MD [address] [place] [address] Social History Tobacco Use Types Packs/Day Years [...] documented as of this encounter Care Teams Potato Chip Processing Supervisor Relationship Specialty Start Date End Date Darling Reyes MD [address] [place] [phone] PCP - General Family Medicine 02/10/18 documented as of this encounter
== END 2024-08-29 16:28 | disposition home or self-care (01) ==
LOC: HO.HHCLNP 16:27
PROVIDERS: Visit Provider Emergency Medicine
DX: R30.0 Dysuria (principal)
CPT/HCPCS: 87086

== ENCOUNTER 2024-10-14 09:04 | Outpatient (REF) | payer MEDICAID, SELFPAY ==
--- NOTE | ~2024-10-14 | US_ITS ---
EXAMINATION: MM DIAGNOSTIC DIGITAL BREAST TOMOSYNTHESIS, BILATERAL Bilateral Limited ultrasound. CLINICAL INFORMATION: Right breast physician felt palpable lump left breast patient felt palpable lump. COMPARISON: Mammography: Baseline. TECHNIQUE: Digital breast mammography with tomosynthesis is performed in both the craniocaudal and mediolateral oblique views along with computer-aided detection (CAD). FINDINGS: The breasts are heterogeneously dense, which may obscure small masses (ACR BI-RADS breast composition Category c). Right: There are no significant masses, abnormal calcifications, or other abnormalities. Targeted color Doppler ultrasound scanning in the area of the physician felt palpable lump in the right lower outer quadrant demonstrates normal fibroglandular breast tissue. There is no sonographic abnormality. Left: BB marker in the lower inner right breast anterior depth without underlying abnormality. No suspicious masses calcifications or other abnormal findings. Targeted color Doppler ultrasound scanning in the area the patient felt palpable lump from 3-9 o'clock demonstrates normal fibronodular breast tissue. There is no sonographic abnormality. Results are provided to the patient at time of visit by the technologist. US/US breast BI limited mamm only IMPRESSION: No mammographic or sonographic abnormality bilateral breasts to account for the patient's palpable lumps and physician felt palpable lumps. Recommend clinical evaluation and follow-up. ASSESSMENT: BI-RADS BI-RADS 1 - Negative RECOMMENDATION: 1. Patient should be managed based on the clinical impression. 2. Otherwise, routine annual screening mammography. Electronically signed by: Jossie Mendoza DO 10/14/2024 11:35 AM EDT
--- OUTSIDE RECORDS SUMMARY | 2024-10-14 09:16 | XMS_ITS | Encounter Summary ---
Author Organization [employer] Address [address] [facility] [address] [place] [address] Care Team Providers Care Drill Instructor Name Role Phone Darling Reyes MD Primary Care Provide r Encounter Details Date Type Department Care Team ([facility] st Contact Info) Description 08/03/2023 Orders Only [facility] [address] [place], [place] [phone] Darling Reyes MD [address] [place], [place] [phone] Social History Tobacco Use Types Packs/Day Years [...] documented as of this encounter Care Teams Drill Instructor Relationship Specialty Start Date End Date Darling Reyes MD [address] [place] [phone] PCP - General Family Medicine 02/10/18 documented as of this encounter
--- OUTSIDE RECORDS SUMMARY | 2024-10-14 09:16 | XMS_ITS | Clinical Summary ---
Author Organization [employer] Address [address] [place] [address] [address] [place] [address] Care Team Providers Care Lure Maker Name Role Phone Darling Reyes MD Primary [...] mouth in the morning. 90 capsule 1 023 Active loratadine (Claritin) 10 MG tabletIndicatio ns:Viral upper respiratory tract infection Take 1 tablet (10 mg) by mouth in the morning. 30 tablet 024 Active famotidine (Pepcid) 20 MG tabletIndicatio ns:Nausea Take 1 tablet (20 mg) by mouth 2 times daily. 180 tablet 3 024 Active ketoconazole (NIZOral) 2 % shampooIndicati ons:Telogen effluvium Apply topically 2 (two) times a week. 120 mL 3 024 Active senna-docusate sodium (Senokot-S) 8.6-50 MG tabletIndicatio ns:Chronic constipation Take 1 tablet by mouth Once per day. 30 tablet 11 024 2024 Active medroxyPROGESTE Cas (Provera) 5 MG tablet Take 1 tablet (5 mg) by mouth Once per day for 7 days. Report if no menses by 7th day after last pill 7 tablet 024 Active Medpura Benzoyl Peroxide 10 % external washIndications :Acne vulgaris APPLY TOPICALLY TO THE AFFECTED AREA(S) EVERY DAY DIRECTED 237 g 1 025 Active acetaminophen (Tylenol) 500 MG tablet Take 2 tablets (1,000 mg) by mouth every 6 (six) hours if needed for moderate pain or fever for up to 25 doses. 50 tablet Active polyethylene glycol, PEG, 3350 (Glycolax) 17 GM/SCOOP powder TAKE 17 GM MIXED IN 8 OUNCES OF WATER ONCE DAILY NEEDED FOR CONSTIPATION 510 g 3 Active Fiber-Lax 625 MG tabletIndicatio ns:Other constipation TAKE 1 TABLET BY MOUTH TWICE DAILY 180 tablet 3 Active busPIRone (Buspar) 5 MG tabletIndicatio ns:Anxiety Take 1 tablet (5 mg) by mouth 2 times daily. 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 30 tablet 1 025 2024 Active sertraline (Zoloft) 100 MG tabletIndicatio ns:Mild episode of recurrent major depressive disorder (CMS/HCC) Take 1 and a half tablets by mouth every morning for total dose of 150 mg. 45 tablet 1 Active hydrOXYzine HCl (Atarax) 25 MG tabletIndicatio ns:Primary insomnia Take 1 tablet (25 mg) by mouth if needed at bedtime for anxiety. 30 tablet 1 025 2024 Active polycarbophil (FiberCon) 625 MG tabletIndicatio ns:Other constipation Take 1 tablet (625 mg) by mouth 2 times daily. 180 tablet 3 024 2024 Discontinued mirtazapine (Remeron) 15 MG tabletIndicatio ns:Severe episode of recurrent major depressive disorder, without psychotic features (CMS/HCC),Anxie ty,Primary insomnia Take 1 tablet (15 mg) by mouth at bedtime. 30 tablet 1 025 2024 Discontinued(R eorder (will not trigger notification to Pharmacy)) sertraline (Zoloft) 100 MG tabletIndicatio ns:Mild episode of recurrent major depressive disorder (CMS/HCC) Take 1 and a half tablets by mouth every morning for total dose of 150 mg. 45 tablet 1 025 2024 Discontinued(R eorder (will not trigger notification to Pharmacy)) hydrOXYzine HCl (Atarax) 25 MG tabletIndicatio ns:Primary insomnia Take 1 tablet (25 mg) by mouth if needed at bedtime for anxiety. 30 tablet 1 025 2024 Discontinued(R eorder (will not trigger notification to Pharmacy)) Active [...] Plan (04/04/2024 11:27 AM EST): Counseling done N called, patient will be follow up I [...] of agency, but will reach out to [facility], as therapist cancelled previous telehealth visit. Assessment [...] for support PLAN: 1. Follow up with [facility]: Not recommended for follow-up 2. Patient goal [...] AM EST): I advise to come to [facility] for evaluation and testing Drink plenty of fluids and rest Encounters * This document contains information received from the source organization and may not represent a complete record from that organization. Date Type Department Care Team Description 09/21/2024 Telephone [facility] [address] [place] [address] Darling Reyes MD medication refill 09/21/2024 Refill [facility] [address] [place] [address] Tiara Lloyd Other constipation 08/31/2024 Telephone [facility] [address] [place] [phone] George Knapp MD 08/31/2024 Refill [facility] [address] [place] [phone] Tiara Lloyd, 08/29/2024 Telephone [facility] [address] [place] [phone] Mary Mata, MARY [facility]/telephone triage 08/29/2024 Telephone [facility] [address] [place] [phone] Mary Mata RN Results 08/28/2024 Orders Only [facility] [address] [place] [phone] George Knapp MD Dysuria (Primary Dx) 08/26/2024 10:20 AM EDT Office Visit [facility] [address] [place] [phone] George Knapp MD Abdominal pain, lower (Primary Dx); Acute bilateral low back pain without sciatica; Dysuria 08/25/2024 Telephone [facility] [address] [place] [phone] Darling Reyes MD Nurse Triage 08/24/2024 Population Health Risk Score [facility] () Department [address] [place] [phone] Provider, Population Health Generic 08/15/2024 10:45 AM EDT Office Visit [facility] [address] [place] [phone] Darling Reyes MD Breast nodule (Primary Dx); Missed period; Muscular pain 08/15/2024 Travel 08/15/2024 Telephone [facility] [address] [place] [phone] Darling Reyes MD Nurse Triage from Last 3 Months Immunizations Immunization Administration Dates Next Due Influenza injectable quadrivalent [...] Health Maintenance Due Date Last Done Comments Hepatitis B Vaccines (1 of 3 - 19+ 3-dose series) 2012 HPV/Cotest 10/15/2023 COVID-19 Vaccine (3 - 2023-2 5 season) 2024 01/24/2021, 01/04/2021 Influenza Vaccine (#1) 2024 , 02/23/2018 SDOH Screening 08/19/2024 08/20/2023 Alcohol/Substance Use Screening 01/05/2025 01/06/2024 Depression Screening 04/04/2025 04/04/2024, 04/04/2024 Family Planning (PISQ) 04/25/2025 04/25/2024 Tobacco Screening 09/22/2025 09/22/2024 Cervical Cancer Screening 11/13/2025 Pap Smear 11/13/2025 11/13/2022 DTaP/Tdap/Td Vaccines (3 - T d or Tdap) 10/18/2030 10/18/2020, 05/17/2018 Zoster Vaccines (1 of 2) 10/15/2043 RSV [...] patient's age to complete this topic Meningococcal B Vaccine Aged Out No l onger eligible based on patient's age to complete [...] Procedure Name Priority Date/Time Associated Diagnosis Comments CULTURE, URINE, ROUTINE Routine 08/29/2024 12:00 AM EDT Dysuria HCG, TOTAL, QN Routine 08/26/2024 12:00 PM [...] Recently Relevant to Health Maintenance Results * Culture, Urine, Routine (08/29/2024 12:00 AM EDT) Urine Urine specimen obtained by clean catch procedure / Unknown 08/29/2024 08/29/2024 Comment:UACC Narrative [facility] - 08/31/2024 11:03 AM EDT Urine Culture No growth. Specimen Source: Urine clean catch George Knapp MD LAB MICROBIOLOGY - GENERAL ORDER JACK Final Result [facility] [address] [place] [address] [phone] * (ABNORMAL) CBC auto differential (08/26/2024 12:00 PM EDT) White Blood Count 4.1(L) 4.8 - 10.8 X10*3/uL [facility] Red Blood Count 4.70 4.20 - 5.50 X10*6/uL [facility] Hemoglobin 13.9 12.0 - 16.0 g/dl [facility] Hematocrit 41.7 37.0 - 47.0 % [facility] Mean Corpuscular Volume 88.7 80.0 - 98.0 fL [facility] Mean Corpuscular Hemoglobin 29.6 27.0 - 33.0 pg [facility] Mean Corpuscular HGB Conc 33.3 31.0 - 35.0 g/dl [facility] Red Cell Distribution Width 12.4 11.0 - 16.0 % [facility] Platelet Count 401(H) 160 - 400 X10*3/uL [facility] Mean Platelet Volume 10.7 9.4 - 12.3 fL [facility] Neutrophils Percent Auto 44.0(L) 45 - 73 % [facility] Imm Gran Pct Auto 0.2 0.0 - 0.4 % [facility] Lymphocytes Percent Auto 44.9(H) 20 - 40 % [facility] Monocytes Percent Auto 8.0 2 - 11 % [facility] Eosinophils Percent Auto 2.4 0 - 4 % [facility] Basophils Percent Auto 0.5 0 - 2 % [facility] NRBC Pct Auto 0.0 0.0 - 0.2 /100WBC [facility] Neutrophils Absolute Auto 1.8(L) 2.0 - 8.3 x10*3/uL [facility] Imm Gran Abs Auto 0.01 0.00 - 0.03 X10*3/uL [facility] Lymphocytes Absolute Auto 1.9 1.2 - 4.9 X10*3/uL [facility] Monocytes Absolute Auto 0.3 0.1 - 1.2 X10*3/uL [facility] Eosinophils Absolute Auto 0.1 0.0 - 0.4 X10*3/uL [facility] Basophils Absolute Auto 0.0 0.0 - 0.2 X10*3/uL [facility] NRBC Abs Auto 0.000 0.0 - 0.012 X10*3/uL [facility] Blood Venous blood specimen / Unknown 08/26/2024 12:00 PM EDT 08/26/2024 2:07 PM EDT us George Knapp MD LAB BLOOD ORDERABLES Final Resul t [facility] [address] [place] [address] [phone] * hCG, Total, Quantitative (08/26/2024 12:00 PM EDT) HCG Quantitative <2 mIU/mL [facility] Comment:Weeks post LMP Appro ximate hCG(Last Menstrual Period) Range (mIU/ml)3 - 4 weeks 9 - 1304 - 5 weeks 75 - 2,6005 - 6 weeks 850 - 20,8006 - 7 weeks 4000 - 100,2007 - 12 weeks 11,500 - 289,78002 - 16 weeks 18,300 - 137,54930 - 29 weeks (2nd trimester) 1,400 - 53,17592 - 41 weeks (3rd trimester) 940 - [...] ORDERABLES Final Resul t Performing Organization Address [facility] de Phone Number [facility] [address] [place] [phone] * (ABNORMAL) Basic Metabolic Panel (08/26/2024 12:00 PM EDT) Pathologist [facility] Sodium 140 135 - 145 mmol/L [facility] Potassium 3.9 3.3 - 5.1 mmol/L [facility] Chloride 107 96 - 108 mmol/L [facility] Carbon Dioxide 27 22 - 29 mmol/L [facility] Anion Gap 10(L) 12 - 20 [facility] Urea Nitrogen (BUN) 9 9 - 16 mg/dL [facility] Creatinine, Serum 0.70 0.5 - 1.4 mg/dL [facility] Estimated Glomerular Filt Rate >60 [facility] Comment:Chronic Kidney Disea se: Estimated GFR < 60 mL/min/1.96p0[place] Kidney Disease: Estimated GFR < 15 mL/min/1.73m2 Glucose 77 60 - 115 mg/dL [facility] Calcium 9.2 8.4 - 10.2 mg/dL [facility] Blood Venous blood specimen / Unknown 08/26/2024 12:00 PM EDT 08/26/2024 2:07 PM EDT us George Knapp MD LAB BLOOD ORDERABLES Final Resul t Performing Organization Address [facility] de Phone Number [facility] [address] [place] [phone] * POCT , urine manually resulted [...] dipstick manually resulted (08/26/2024 10:37 AM EDT) Pathologist [facility] Color, UA Yellow Clarity, UA Cloudy Glucose, [...] Vaginitis Plus, TMA (08/26/2024 12:00 AM EDT) Pathologist [facility] CTNG Ref Lab NOT DETECTED NOT DETECTED [facility] NG Ref Lab NOT DETECTED NOT DETECTED [facility] Comment:For additional infor mation, please refer tohttps://education.Adonit/faq/RUI608(This link is being provided for information/educational purposes only.)THIS TEST WAS PERFORMED AT:[employer] [place] [phone] ROCHA MD [employer] 9R) ADV Bacterial Vaginosis (BV), TMA NEGATIVE NEGATIVE [facility] Noa Species NOT DETECTED NOT DETECTED [facility] Noa glabrata NOT DETECTED NOT DETECTED [facility] Comment:Noa species C. a lbicans, C. tropicalis,C. parapsilosis, and/or C. dubliniensis can be detected,but not differentiated, in the Noa spp. result. Trichomonas vaginalis (TV), TMA NOT DETECTED NOT DETECTED [facility] 08/26/2024 08/26/2024 us George Knapp MD LAB BODY FLUIDS AND STOOLS ORDER JACK Final Result [facility] [address] [place] [address] [phone] * Pap Smear (11/13/2022 1:12 PM EDT) 11/13/2022 1:12 PM EDT 11/14/2022 8:00 AM EDT Narrative [facility] - 12/10/2022 11:35 AM EDT ----- ------- Name: Madeline Santizo ? Age/Sex: 27/F ? : 1995 Unit#: [id number] ?? Attend Dr: Sally Alfaro CNM ?Re11/13/22 ?Status: DEP REF ? Location: HO.LNP ?Disch: ? ----- ------- SPEC : [id number] ? RECD: 11/14/22 ? STATUS: ??SOUT ? REQ NUM: [id number] ? NAVYA: 11/13/22-1312 ? SUBM DR: Sally Alfaro CNM ? ENTERED: ??11/14/22 ?SP TYPE: Pap Smr ?OTHR DR: Darling Reyes MD ? ORDERED: ??Pap Smear ? Interpretation ?? Satisfactory for evaluation. ?? Negative for intraepithelial lesion or malignancy. ?Clinical Information LMP: 10/13/22 (approximately) Previous PAP test: 12/28/17, ASCUS ? Material Received ?? ThinPrep-Cervical Copies To: ?? Darling Reyes MD ?? [address] ?? [place] [address] ?? [phone] ?? Sally Alfaro CNM ?? [address] [facility] [address] ?? [place] [address] ?? [phone] ----- ------- Signed (signature on file) TRAVIS Bray ([facility]) 12/10/22 1135 ? ----- ------- ? END OF REPORT ? [facility] External Provider LAB CYT OLRUTHY ORDERABLES Final Result Performing Organization Address [facility]/ZIP Co de Phone Number [facility] [address] [place] [address] [phone] * HEPATITIS C AB W/REFL TO HCV RNA, QN, PCR (06/27/2021 11:08 AM EST) HEPATITIS C ANTIBODY NON-REACT [facility] NON-REACT [facility] INDEX 0.01 <1.00 [employer] Comment: ?? HCV antibody was non-reactive. There is no laboratory ?? evidence of HCV infection. ?? In most cases, no further action is required. However, if recent HCV exposure is suspected, a test for HCV RNA (test code 50885) is suggested. ?? For additional information please refer to http://education.Adonit/faq/OZG77b9 (This link is being provided for informational/ educational purposes only.) ?? 06/27/2021 11:0 8 AM EST Darling Johnston MD HISTORICAL/NON ORDERA BLE LABS Final Result Performing Organization Address City/[facility]/ZIP Co de Phone Number [facility] [address] [place] [address], * HIV 1/2 ANTIGEN/ANTIBODY,FOURTH GENERATION W/RFL (06/27/2021 11:08 AM EST) HIV-1/2 ANTIGEN AND ANTIBODIES, 4TH GENERATION W/ REFLEX NON-REACT LYLA NON-REACT LYLA [facility] Comment: HIV-1 antigen and [...] ? For additional information please refer to http://education.Adonit/faq/RLR941 (This link is being provided for informational/ educational purposes only.) ? The performance of this assay has not been clinically validated in patients less than 2 years old. ?? 06/27/2021 11:0 8 AM EST Darling Johnston MD LAB BLOOD ORDERABLES Final Result Performing Organization Address City/State/[facility] Co de Phone Number [facility] [address] from Last 3 Months or Most Recently Relevant to Health Maintenance [place] [address] [place] [address] C3 HSN FULL Care Teams Lure Maker Relationship Specialty Start Date End Date Darling Reyes MD [address] [place] [phone] PCP - General Family Medicine 02/10/18
--- OUTSIDE RECORDS SUMMARY | 2024-10-14 09:16 | XMS_ITS | Clinical Summary ---
Author Organization [facility] Address [address] [phone] Care Team Providers Care Tight Cooper Name Role Phone Gisell Cedeno Primary Care Provider Allergies No known active allergies Medications No [...] Vaccine ( - 2023-2 5 season) 2024 Alcohol/Substance Use Screening 06/01/2024 Influenza Vaccine (Season Ended) 2025 02/23/2018 Cervical Cancer Screening 11/13/2025 Pap Smear 11/13/2025 11/13/2022 RSV Vaccine (60+ years old and patients) (1 - 1-dose 75+ series) 2068 HIV Screening Completed 06/27/2021, 06/27/2021 Pneumococcal Vaccine: Pediatric (0-5 Years) and At-Risk Patients (6-50 Years) Aged Out No longer eligible based on patient's age to complete this topic Insurance /FREE [place] [address] Care Teams Tight Cooper Relationship Specialty Start Date End Date Gisell Cedeno [address] [facility] [address] [place] [address] PCP - General Internal Medicine 04/21/18
--- OUTSIDE RECORDS SUMMARY | 2024-10-14 09:16 | XMS_ITS | Encounter Summary ---
Author Organization [employer] Address [address] [place] [address] [address] [place] [address] Care Team Providers Care Bundle Cutter Name Role Phone Darling Reyes MD Primary Care Provide r Reason for Visit * Reason Onset Date Comments Medication Question 03/28/2024 Encounter Details Date Type Department Care Team ([facility] Contact Info) Description 03/28/2024 Telephone [facility] [address] [place], [place] [phone] Melissa Lopez CNM [address] [place] [address] Medication Question Social History Tobacco Use Types [...] documented as of this encounter Care Teams Bundle Cutter Relationship Specialty Start Date End Date Darling Reyes MD [address] [place] [phone] PCP - General Family Medicine 02/10/18 documented as of this encounter
--- OUTSIDE RECORDS SUMMARY | 2024-10-14 09:16 | XMS_ITS | Referral Summary ---
Author Organization [facility] Address [address] [phone] Care Team Providers Care Thread Marker Name Role Phone Gisell Cedeno Primary Care Provider [phone] Allergies No known active allergies Medications No [...] Treatment Not on file Insurance HSNO/FREE C[facility] Care Teams Thread Marker Relationship Specialty Start Date End Date Gisell Cedeno [address] [place] [address] [address] [place] [address] PCP - General Internal Medicine 04/21/18
--- OUTSIDE RECORDS SUMMARY | 2024-10-14 09:16 | XMS_ITS | Encounter Summary ---
Author Organization [employer] Address [address] [place] [address] Care Team Providers Care Document Imaging Manager Name Role Phone Darling Reyes MD Primary Care Provide r Encounter Details Date Type Department Care Team ([facility] st Contact Info) Description 08/28/2024 Orders Only [facility] [address] [place], [place] [phone] George Knapp MD [address] [place], [place] [phone] Dysuria (Primary Dx) Social History Tobacco Use [...] ROUTINE Routine 08/29/2024 12:00 AM EDT Dysuria documented in this encounter Results * Culture, Urine, Routine (08/29/2024 12:00 AM EDT) Urine Urine specimen obtained by clean catch procedure / Unknown 08/29/2024 08/29/2024 Comment:[facility] - 08/31/2024 11:03 AM EDT Urine Culture No growth. Specimen Source: Urine clean catch us George Knapp MD LAB MICROBIOLOGY - GENERAL ORDER JCAK Final Result [facility] [address] [place] [phone] [phone] documented in this encounter Visit Diagnoses Diagnosis Dysuria- Primary documented in this encounter Additional Health Concerns Assessment Noted Time PHQ-9 Depression Total Score: 19 024 11:31 AM EST documented as of this encounter Care Teams Document Imaging Manager Relationship Specialty Start Date End Date Darling Reyes MD [address] [place] [phone] PCP - General Family Medicine 02/10/18 documented as of this encounter
== END 2024-10-14 09:05 | disposition home or self-care (01) ==
LOC: HO.MAMMO 09:04
PROVIDERS: PCP Internal Medicine; Visit Provider Internal Medicine
DX: N63.22 Unspecified lump in the left breast, upper inner quadrant (principal); N63.21 Unspecified lump in the left breast, upper outer quadrant; N63.11 Unspecified lump in the right breast, upper outer quadrant
CPT/HCPCS: 76642; 77062; 77066

== ENCOUNTER → 2024-10-14 10:00 | Outpatient (BNV) | payer MEDICAID, SELFPAY | PROVIDERS: PCP Internal Medicine; Visit Provider Internal Medicine | DX: N63.25 Unspecified lump in the left breast, overlapping quadrants (principal); N63.10 Unspecified lump in the right breast, unspecified quadrant; R92.333 Mammographic heterogeneous density, bilateral breasts; Z18.9 Retained foreign body fragments, unspecified material | CPT/HCPCS: 76642; 77062; 77066 ==

== ENCOUNTER 2024-12-29 18:06 | Outpatient (REF) | payer MEDICAID, SELFPAY ==
[2024-12-30 04:29] LABS: Bacterial Vaginosis PCR POSITIVE (Negative); Candida Group PCR DETECTED (Not Detect); Candida glab krusei PCR NOT DETECTED (Not Detect); Trichomonas vaginalis PCR NOT DETECTED (Not Detect)
== END 2024-12-29 18:07 | disposition home or self-care (01) ==
LOC: HO.HHCLNP 18:06
PROVIDERS: Visit Provider Nurse Practitioner Family
DX: N89.8 Other specified noninflammatory disorders of vagina (principal)
CPT/HCPCS: 81515; 87086

== ENCOUNTER 2025-01-03 12:55 | Outpatient (REF) | payer MEDICAID, SELFPAY ==
--- NOTE | ~2025-01-03 | US_ITS ---
EXAMINATION: US LOWER EXTREMITY VENOUS (REFLUX EXAM), BILATERAL CLINICAL INFORMATION: Venous insufficiency workup COMPARISON: None. TECHNIQUE: Color flow triplex imaging and compression Doppler was performed to evaluate both the deep and the superficial systems bilaterally. To evaluate the superficial system, the examination was performed in the upright position. Color-flow Doppler ultrasound and compression ultrasound were utilized. In addition, maneuvers were utilized to demonstrate reflux. FINDINGS: 1. DEEP VENOUS ULTRASOUND OF THE RIGHT LOWER EXTREMITY: Common Femoral Vein: Compressible, normal respiratory variation and augmented flow. Femoral Vein: Compressible, normal color flow and augmentation. Popliteal Vein: Compressible, normal augmentation. Deep Reflux: There is no evidence of reflux in the deep system in either the common femoral vein, superficial femoral or the popliteal vein. 2. SUPERFICIAL ULTRASOUND WITH DOPPLER OF RIGHT LOWER EXTREMITY: Saphenofemoral Junction: 0.6 cm; Reflux: 0 ms Proximal Thigh: 0.2 cm; Reflux: 0 ms Mid Thigh: 0.2 cm; Reflux: 0 ms Distal Thigh: 0.2 cm; Reflux: 0 ms At Knee: 0.3 cm; Reflux: 0 ms Proximal Calf: 0.2 cm; Reflux: 0 ms Mid Calf: 0.2 cm; Reflux: 0 ms Distal Calf: 0.3 cm; Reflux: 0 ms Lateral accessory GREAT SAPHENOUS VEIN: Saphenofemoral Junction: 0.3 cm; Reflux: 0 ms Mid Thigh: 0.2 cm; Reflux: 0 ms SMALL SAPHENOUS VEIN: Drainage: Thigh extension Saphenopopliteal Junction: .3 cm; Reflux: 0 ms Mid calf: 0.2 cm; Reflux: 0 ms Distal: 0.2 cm; Reflux: 0 ms VEIN OF GIACOMINI: Size: NA cm Reflux: NA ms PERFORATORS: Location: Greater saphenous vein, proximal calf Size: 0.2 cm Reflux: 0 ms VARICOSITIES > 3mm: Location: GREATER saphenous vein, and the Size: 0.3 cm Reflux: 0 ms 3. DEEP VENOUS ULTRASOUND OF THE LEFT LOWER EXTREMITY: Common Femoral Vein: Compressible, normal respiratory variation and augmented flow. Femoral Vein: Compressible, normal color flow and augmentation. Popliteal Vein: Compressible, normal augmentation. Deep Reflux: There is no evidence of reflux in the deep system in either the common femoral vein, superficial femoral or the popliteal vein. 4. SUPERFICIAL ULTRASOUND WITH DOPPLER OF LEFT LOWER EXTREMITY: GREAT SAPHENOUS VEIN: Saphenofemoral Junction: 0.9 cm; Reflux: 0 ms Proximal Thigh: 0.4 cm; Reflux: 0 ms Mid Thigh: 0.2 cm; Reflux: 0 ms Distal Thigh: 0.3 cm; Reflux: 0 ms At Knee: 0.3 cm; Reflux: 0 ms Below Knee/Proximl calf: 0.3 cm; Reflux: 0 ms Mid Calf: 0.3 cm; Reflux: 0 ms Distal Calf/Ankle: 0.3 cm; Reflux: 0 ms Lateral accessory GREAT SAPHENOUS VEIN: Saphenofemoral Junction: 0.3 cm; Reflux: 0 ms Mid Thigh: 0.2 cm; Reflux: 0 ms SMALL SAPHENOUS VEIN: Drainage: Popliteal vein Saphenopopliteal Junction: 0.3 cm; Reflux: 0 ms Mid calf: 0.3 cm; Reflux: 0 ms Distal calf: 0.3 cm; Reflux: 0 ms VEIN OF GIACOMINI: Size: NA Reflux: NA PERFORATORS: Location: Proximal small saphenous vein Size: 0.2 cm Reflux: 0 ms VARICOSITIES > 3mm: Location: None Imaged US/US venous insuf bilat IMPRESSION: Right: No venous reflux is demonstrated. Left: No venous reflux is demonstrated. Electronically signed by: Albert Frazier MD 01/03/2025 01:54 PM EDT
--- OUTSIDE RECORDS SUMMARY | 2025-01-03 13:31 | XMS_ITS | Clinical Summary ---
Author Organization [facility] Address [address] [place] [address] Care Team Providers Care Musical Instrument Maker Or Repairer Name Role Phone Unavailable Primary Care Provider Unavailabl e Source Comments PLEASE NOTE, if this patient is a minor, it may be UNLAWFUL to discuss sensitive information that is contained in these records (such as FAMILY PLANNING, MENTAL HEALTH or SUBSTANCE ABUSE) with the minor patient's parent or other person without the patient's specific authorization.[facility] Social History Tobacco Use Types Packs/Day Years Used Date Smoking Tobacco: Never Assessed Comments Unknown Sex and Gender Information Value Date Recorded Sex Assigned at Female 11/22/2024 10:03 AM PDT Legal Sex Female 10:03 AM PDT Gender Identity Female 11/22/2024 10:03 AM PDT Sexual Orientation Not on file Plan of Treatment Upcoming Encounters Date Type Department Care Team (Late st Contact Info) Description 01/12/2025 1:00 PM EDT Behavioral Health Visit [facility] [address] [place] [address] Jazz Gutierrez, MATEO [address] [place] [address] Health Maintenance Due Date Last Done Comments Anxiety Screening 1995 HPV Screening 1995 Hepatitis C Screening 1993 Pap + HPV 1993 Tobacco Screening 1993 Relationship Safety Screening/Counseling 2008 Hypertension Screening (#1) 10/15/2011 Imm-DTaP/Tdap/Td (1 - Tdap) 2012 Imm-Hepatitis B (1 of 3 - 19 + 3-dose series) 2012 Cervical Cancer Screening 2014 Pap Smear 2014 [id number] () 01/31/2024 Alcohol and Drug Screen 06/01/2024 Depression Annual Screen 06/01/2024 Imm-Influenza (#1) 2025 HIV Screening Completed 06/27/2021, 06/27/2021 Cervical Ablation/Cold-Knife Conization Discontinued Cervical Cryotherapy Discontinued Colposcopy Discontinued Endometrial Biopsy Discontinued Excision/Leep Discontinued HPV Genotyping Discontinued Vaginal Pap Discontinued Vulvoscopy Discontinued Insurance [facility] [place] [address]
--- OUTSIDE RECORDS SUMMARY | 2025-01-03 13:31 | XMS_ITS | Clinical Summary ---
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 30 tablet 06/19/19 24 Active famotidine (Pepcid) 20 MG tabletIndicatio ns:Nausea Take 1 tablet (20 mg) by mouth 2 times daily. 180 tablet 3 02/25/20 24 Active ketoconazole (NIZOral) 2 % shampooIndicati ons:Telogen effluvium Apply topically 2 (two) times a week. 120 mL 3 03/21/20 24 Active senna-docusate sodium (Senokot-S) 8.6-50 MG tabletIndicatio ns:Chronic constipation Take 1 tablet by mouth Once per day. 30 tablet 11 05/10/20 24 2024 Active Medpura Benzoyl Peroxide 10 % external washIndications :Acne vulgaris APPLY TOPICALLY TO THE AFFECTED AREA(S) EVERY DAY DIRECTED 237 g 1 07/08/19 25 Active acetaminophen (Tylenol) 500 MG tablet Take 2 tablets (1,000 mg) by mouth every 6 (six) hours if needed for moderate pain or fever for up to 25 doses. 50 tablet 08/27/19 25 Active polyethylene glycol, PEG, 3350 (Glycolax) 17 GM/SCOOP powder TAKE 17 GM MIXED IN 8 OUNCES OF WATER ONCE DAILY NEEDED FOR CONSTIPATION 510 g 3 09/01/19 25 Active Fiber-Lax 625 MG tabletIndicatio ns:Other constipation TAKE 1 TABLET BY MOUTH TWICE DAILY 180 tablet 3 09/23/19 25 Active busPIRone (Buspar) 5 MG tabletIndicatio ns:Anxiety Take 1 tablet (5 mg) by mouth 2 times daily. 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 30 tablet 1 10/20/19 25 Active sertraline (Zoloft) 100 MG tabletIndicatio ns:Mild episode of recurrent major depressive disorder (CMS/HCC) Take 1 and a half tablets by mouth every morning for total dose of 150 mg. 45 tablet 1 10/20/19 25 Active hydrOXYzine HCl (Atarax) 25 MG tabletIndicatio ns:Primary insomnia Take 1 tablet (25 mg) by mouth if needed at bedtime for anxiety. 30 tablet 1 10/20/19 25 Active Drospirenone (Slynd) 4 MG tablet Take 1 tablet by mouth Once per day. 28 tablet 11 12/01/19 25 Active metroNIDAZOLE (Flagyl) 500 MG tabletIndicatio ns:BV (bacterial vaginosis) Take 1 tablet (500 mg) by mouth 2 times daily for 7 days. 14 tablet 01/01/20 25 2024 Active cyclobenzaprine (Flexeril) 5 MG tabletIndicatio ns:Upper back pain Take 1 tablet (5 mg) by mouth 3 times daily for 10 days. 30 tablet 12/06/19 25 2024 acetaminophen (Tylenol Extra Strength) 500 MG tabletIndicatio ns:Upper back pain Take 2 tablets (1,000 mg) by mouth every 8 (eight) hours if needed for moderate pain for up to 10 days. 30 tablet 12/06/19 25 2024 ondansetron (Zofran) 4 MG tabletIndicatio ns:Nausea Take 2 tablets (8 mg) by mouth every 8 (eight) hours if needed for nausea or vomiting for up to 7 days. 20 tablet 12/06/19 25 2024 metroNIDAZOLE (Metrogel) 0.75 % vaginal gel Insert into the vagina at bedtime for 7 days. 70 g 12/30/19 25 2024 Discontinued fluconazole (Diflucan) 150 MG tabletIndicatio ns:Noa infection Take 1 tablet (150 mg) by mouth 1 (one) time for 1 dose. 1 tablet 01/01/20 25 2024 Active Problems Problem Noted Date Diagnosed Date Pain due to varicose veins of both lower extremi ties 12/05/2024 Upper back pain 12/05/2024 Assessment & Plan (12/05/2024 12:24 PM EDT): Apply heat on affected area I will prescribe short course of Flexeril plus acetaminophen, patient is aware of side effects somnolence, she is aware she cannot drive while taking this medication Epigastric pain 12/05/2024 Assessment & Plan (12/05/2024 12:24 PM EDT): I advise patient to avoid NSAIDs, spicy and acid food, I advise to eat at the same time every day, I advise to elevate the head of the bed and take medications as prescribe Missed period 08/15/2024 Assessment & Plan (08/15/2024 [...] Behavioral Health Integration [facility] Madeline agrees to f/u for OP therapy. She reports receiving phone call, but does not recall the name of agency, but will reach out to [facility], as therapist cancelled previous telehealth visit. Assessment [...] support PLAN: 1. Follow up with [facility]: Not recommended for follow-up 2. Patient goal [...] AM EST): I advise to come to [facility] for evaluation and testing Drink plenty of fluids and rest Encounters * This document contains information received from the source organization and may not represent a complete record from that organization. Date Type Department Care Team Description 01/02/[address] [address] Olya Cao FNP Results 12/30/[address] [address] Darling Reyes MD Vaginal discharge 12/30/[address] [address] Darling Reyes MD 12/29/2024 2:30 PM EDT Office Visit [address] [address] Olya Cao FNP Vaginal discharge (Primary Dx); BV (bacterial vaginosis); Noa infection 12/29/2024 Travel 12/29/[address] [address] Darling Reyes MD Nurse Triage 12/05/2024 10:45 AM EDT Office Visit [address] [address] Darling Reyes MD Pain due to varicose veins of both lower extremities; Upper back pain; Nausea; Epigastric pain 12/05/2024 Travel 12/01/[address] [address] Darling Reyes MD Nurse Triage 11/30/2024 10:00 AM EDT Office Visit [address] [address] Melissa Lopez CNM Family planning counseling (Primary Dx) 11/30/2024 Travel 11/29/2024 Telephone [facility] [address] [place] [address] Melissa Lopez CNM CHART PREP 11/28/2024 Telephone [facility] [address] [place] [address] Darling Reyes MD Med Refill 11/23/2024 Telephone [facility] [address] [place] [address] Darling Reyes MD Medication Question 10/26/2024 9:45 AM EDT Office Visit [facility] [address] [place] [address] Stephany Huffman, OD Regular astigmatism of both eyes (Primary Dx) 10/19/2024 Telephone [facility] [address] [place] [address] Darling Reyes MD Results from Last 3 Months Immunizations Immunization Administration [...] Health Questionnaire-2 Score 6 04/04/2024 Comments No Intention Date Recorded No desire to become (finding) 0 11/30/2024 Sex and Gender Information Value Date Recorded Sex Assigned at Female 03/31/2022 10:33 AM EDT Legal Sex Female 10:33 AM EDT Gender Identity Female 03/31/2022 10:33 AM EDT Sexual Orientation Choose not to disclose 2021 10:33 AM EDT Last Filed Vital Signs Vital Sign Reading Time Taken Comments Blood Pressure 114/76 12/29/2024 2:29 PM EDT Pulse 89 12/29/2024 2:29 PM EDT Temperature 36.7 C (98.1 F) 12/29/2024 2:29 PM EDT Respiratory Rate 16 12/29/2024 2:29 PM EDT Oxygen Saturation 99% 12/29/2024 2:29 PM EDT Inhaled Oxygen Concentration - - Weight 56.4 kg (124 lb 6 oz) 12/29/2024 2:29 PM EDT Height 162.6 cm (5' 4 ) 12/29/2024 2:29 PM EDT Body Mass Index 21.35 12/29/2024 2:29 PM EDT Plan of Treatment Health Maintenance Due Date Last Done Comments Disability Screening 1993 HPV Vaccines (1 - 3-dose series) 2008 Hepatitis B Vaccines (1 of 3 - 19+ 3-dose series) 2012 HPV/Cotest 10/15/2023 COVID-19 Vaccine ( - 2023-2 5 season) 2024 01/24/2021, 01/04/2021 SDOH Screening 08/19/2024 08/20/2023 Depression Monitoring 10/02/2024 04/04/2024 , 04/04/2024 Alcohol/Substance Use Screening 01/05/2025 01/06/2024 Influenza Vaccine (#1) 2025 , 02/23/2018 Cervical Cancer Screening 11/13/2025 Pap Smear 11/13/2025 11/13/2022 Family Planning (PISQ) 11/30/2025 11/30/2024 Tobacco Screening 12/29/2025 12/29/2024 DTaP/Tdap/Td Vaccines (3 - T d or [...] Years) and At-Risk Patients (6 to 49) Years Aged Out No longer eligible b ased on patient's age to complete this topic RSV under 20 months Aged Out No longe r eligible based on patient's age to complete this topic Rotavirus Vaccines Aged Out No longer eligible based on patient's age to complete this topic Procedures Procedure Name Priority Date/Time Associated Diagnosis Comments POCT URINALYSIS DIPSTICK Routine 12/29/2024 2:41 PM EDT Vaginal discharge POCT WET MOUNT/SHARMILA Routine 12/29/2024 2: 45 AM EDT Vaginal discharge CULTURE, URINE, ROUTINE Routine 12/29/2024 12:00 AM EDT Vaginal discharge BACTERIAL VAGINOSIS PANEL Routine 12/29/2024 12:00 AM EDT Vaginal discharge POCT , URINE Routine 12/05/2024 11:44 AM EDT Nausea BI US BREAST LIMITED BILATERAL Routine 2024 10:00 AM EDT Breast nodule BI MAMMOGRAM DIAGNOSTIC TOMOSYNTHESIS BILATERAL Routine 2024 9:15 AM EDT PAP SMEAR Routine 11/13/2022 1:12 PM EDT ZZZ HISTORICAL HEPATITIS C AB W/REFL TO HCV RNA, QN, PCR Routine 06/27/2021 11:08 AM EST HIV 1/2 ANTIGEN/ANTIBODY, FOURTH GENERATION W/RFL Routine 06/27/2021 11:08 AM EST from Last 3 Months or Most Recently Relevant to Health Maintenance Results * POCT Urinalysis (12/29/2024 2:41 PM EDT) Color, UA Colorless Clarity, UA Clear Glucose, UA Negative Bilirubin, UA Negative Ketones, UA Negative Spec Grav, UA 1.020 Blood, UA Negative Negative, None Detected pH, UA 6.0 Protein, UA Negative Urobilinogen, UA 0.2 Leukocytes, UA Negative Negative, Rare, Trace Nitrite, UA Negative Negative, None Detected Appearance, UA clear QC Media Lot # [id number] Lot# Expiration Date [id number] Urine 12/29/2024 2:41 PM EDT [facility] POINT OF CARE TEST ENTER/EDIT ORDERABLES Final Result * (ABNORMAL) POCT Wet Mount/SHARMILA (12/29/2024 2:45 AM EDT) SHARMILA Prep Comment:positive Vaginal Fluid Vaginal structure / Unknown 12/29/2024 2:45 AM EDT [facility] POINT OF CARE TEST ENTER/EDIT ORDERABLES Final Result * (ABNORMAL) Bacterial Vaginosis Panel (12/29/2024 12:00 AM EDT) TRICHOMONAS VAGINALIS DETECTION BY PCR NOT DETECTED Not Detect [facility] BACTERIAL VAGINOSIS DETECTION BY PCR POSITIVE(A) Negative [facility] Comment:The BV organism targ ets of the Xpert Xpress MVP test can becommensal in women; Xpert Xpress MVP positive results forbacterial vaginosis should be considered in conjunction withother clinical and patient information to determine thedisease status. Organisms that are not detected by the XpertXpress MVP test have also been reported to be associatedwith BV and aerobic vaginitis.The Xpert Xpress MVP test performance has not been evaluatedin patients under the age of 14. NOA GROUP DETECTION BY PCR DETECTED(A) Not Detect [facility] Noa glab krusei PCR NOT DETECTED Not Detect [facility] Swab Vaginal structure / Unknown 12/29/2024 12/29/2024 [facility] MICRO[facility] - GENERAL ORD ERABLES Final Result [facility] [address] [place] [phone] * Urine Culture Routine (12/29/2024 12:00 AM EDT) Urine Urine specimen obtained by clean catch procedure / Unknown 12/29/2024 12/29/2024 Comment:UACC Narrative [facility] - 12/31/2024 10:20 AM EDT Urine Culture Report Result Urine Culture > 100,000 cfu/ml Urine Culture Mixed bacterial jhoan characteristic of Urine Culture urogenital contamination. Specimen Source: Urine clean catch [facility] MICRO[facility]OLOG[facility] - GENERAL ORD ERABLES Final Result Performing Organization Address City/[facility]/ZIP Co de Phone Number [facility] [address] [place] [phone] * POCT Urine (12/05/2024 11:44 AM EDT) Preg Test, Ur Negative Negative, Indeterminate, None Detected, Invalid, Specimen unsatisfactory for evaluation, Weakly Positive, 2+ QC Media Lot # [id number] Lot# Expiration Date ,026 QC TEST ,026 Urine 12/05/2024 11:4 4 AM EDT Darling Johnston MD POINT OF CARE TEST EN TER/EDIT ORDERABLES Final Result * BI US Breast Limited Bilateral (2024 10:00 AM EDT) Anatomical Region Laterality Modality Breast Bilateral Ultrasound 2024 10:0 0 AM EDT Narrative 2024 11:38 AM EDT [facility] [place], [place] [address] Ultrasound Report Signed Patient: Madeline Santizo MR#: [id number] 20 : 1995 Acct:[id number] Age/Sex: 29 / F ADM Date: 10/14/24 Loc: HO.MAMMO Attending Dr: Darling Johnston MD Ordering Physician: Darling Reyes MD Date of Service: 10/14/24 Procedure(s): US breast BI limited mamm only Accession Number(s): [id number] cc: Darling Reyes MD EXAMINATION: MM DIAGNOSTIC DIGITAL BREAST TOMOSYNTHESIS, BILATERAL Bilateral Limited ultrasound. CLINICAL INFORMATION: Right breast physician felt palpable lump left breast patient felt palpable lump. COMPARISON: Mammography: Baseline. TECHNIQUE: Digital breast mammography with tomosynthesis is performed in both the craniocaudal and mediolateral oblique views along with computer-aided detection (CAD). FINDINGS: The breasts are heterogeneously dense, which may obscure small masses (ACR BI-RADS breast composition Category c). Right: There are no significant masses, abnormal calcifications, or other abnormalities. Targeted color Doppler ultrasound scanning in the area of the physician felt palpable lump in the right lower outer quadrant demonstrates normal fibroglandular breast tissue. There is no sonographic abnormality. Left: BB marker in the lower inner right breast anterior depth without underlying abnormality. No suspicious masses calcifications or other abnormal findings. Targeted color Doppler ultrasound scanning in the area the patient felt palpable lump from 3-9 o'clock demonstrates normal fibronodular breast tissue. There is no sonographic abnormality. Results are provided to the patient at time of visit by the technologist. US/US breast BI limited mamm only IMPRESSION: No mammographic or sonographic abnormality bilateral breasts to account for the patient's palpable lumps and physician felt palpable lumps. Recommend clinical evaluation and follow-up. ASSESSMENT: BI-RADS BI-RADS 1 - Negative RECOMMENDATION: 1. Patient should be managed based on the clinical impression. 2. Otherwise, routine annual screening mammography. Electronically signed by: Jossie Mendoza DO 2024 11:35 AM EDT Dictated By: Jossie Mendoza DO Signed By: <Electronically signed by Jossie Mendoza DO in OV> 10/14/24 1135 DD/ 1000 TD/TT: 10/14/24 1006 Life Cycle Assessment Analyst: Procedure Note Donotuseinterpreter, Image - 10/17/20[facility] [address] [place], [place] [address] Ultrasound Report Signed Patient: Madeline Santizo [facility]#: [id number] 20 : 1995Acct:[id number] Age/Sex: 29 / FADM Date: 10/14/24 Loc: EDWINA Attending Dr: Darling Johnston MD Ordering Physician: Darling Reyes MD Date of Service: 10/14/24 Procedure(s): US breast BI limited mamm only Accession Number(s): [id number] cc: Darling Reyes MD EXAMINATION: MM DIAGNOSTIC DIGITAL BREAST TOMOSYNTHESIS, BILATERAL Bilateral Limited ultrasound. CLINICAL INFORMATION: Right breast physician felt palpable lump left breast patient felt palpable lump. COMPARISON: Mammography: Baseline. TECHNIQUE: Digital breast mammography with tomosynthesis is performed in both the craniocaudal and mediolateral oblique views along with computer-aided detection (CAD). FINDINGS: The breasts are heterogeneously dense, which may obscure small masses (ACR BI-RADS breast composition Category c). Right: There are no significant masses, abnormal calcifications, or other abnormalities. Targeted color Doppler ultrasound scanning in the area of the physician felt palpable lump in the right lower outer quadrant demonstrates normal fibroglandular breast tissue. There is no sonographic abnormality. Left: BB marker in the lower inner right breast anterior depth without underlying abnormality. No suspicious masses calcifications or other abnormal findings. Targeted color Doppler ultrasound scanning in the area the patient felt palpable lump from 3-9 o'clock demonstrates normal fibronodular breast tissue. There is no sonographic abnormality. Results are provided to the patient at time of visit by the technologist. US/US breast BI limited mamm only IMPRESSION: No mammographic or sonographic abnormality bilateral breasts to account for the patient's palpable lumps and physician felt palpable lumps. Recommend clinical evaluation and follow-up. ASSESSMENT: BI-RADS BI-RADS 1 - Negative RECOMMENDATION: 1. Patient should be managed based on the clinical impression. 2. Otherwise, routine annual screening mammography. Electronically signed by: Jossie Mendoza DO 2024 11:35 AM EDT Dictated By: Jossie Mendoza DO Signed By: <Electronically signed by Jossie Mendoza DO in OV> 10/14/24 1135 DD/ 1000 TD/TT: 10/14/24 1006 Life Cycle Assessment Analyst: us Darling Johnston MD IMG US PROCEDURES Haja brandon Result - Final * BI Mammogram Diagnostic Tomosynthesis Bilateral (2024 9:15 AM EDT) Anatomical Region Laterality Modality Breast Bilateral Mammography 2024 9:15 AM EDT Narrative 2024 11:38 AM EDT [place] [facility] [address] [place] [address] Mammography Report Signed Patient: Madeline Santizo MR#: [id number] 20 : 1995 Acct:[id number] Age/Sex: 29 / F ADM Date: 10/14/24 Loc: EDWINA Attending Dr: Darling Johnston MD Ordering Physician: Darling Reyes MD Results: 1Negative Date of Service: 10/14/24 Follow Up: 1 Year From Orig ina Mammogram Procedure(s): MM tomosynthesis diagnostic BI Accession Number(s): [id number] cc: Darling Reyes MD EXAMINATION: MM DIAGNOSTIC DIGITAL BREAST TOMOSYNTHESIS, BILATERAL Bilateral Limited ultrasound. CLINICAL INFORMATION: Right breast physician felt palpable lump left breast patient felt palpable lump. COMPARISON: Mammography: Baseline. TECHNIQUE: Digital breast mammography with tomosynthesis is performed in both the craniocaudal and mediolateral oblique views along with computer-aided detection (CAD). FINDINGS: The breasts are heterogeneously dense, which may obscure small masses (ACR BI-RADS breast composition Category c). Right: There are no significant masses, abnormal calcifications, or other abnormalities. Targeted color Doppler ultrasound scanning in the area of the physician felt palpable lump in the right lower outer quadrant demonstrates normal fibroglandular breast tissue. There is no sonographic abnormality. Left: BB marker in the lower inner right breast anterior depth without underlying abnormality. No suspicious masses calcifications or other abnormal findings. Targeted color Doppler ultrasound scanning in the area the patient felt palpable lump from 3-9 o'clock demonstrates normal fibronodular breast tissue. There is no sonographic abnormality. Results are provided to the patient at time of visit by the technologist. MM/MM tomosynthesis diagnostic BI IMPRESSION: No mammographic or sonographic abnormality bilateral breasts to account for the patient's palpable lumps and physician felt palpable lumps. Recommend clinical evaluation and follow-up. ASSESSMENT: BI-RADS BI-RADS 1 - Negative RECOMMENDATION: 1. Patient should be managed based on the clinical impression. 2. Otherwise, routine annual screening mammography. Electronically signed by: Jossie Mendoza DO 2024 11:35 AM EDT Dictated By: Jossie Mendoza DO Signed By: <Electronically signed by Jossie Mendoza DO in OV> 10/14/24 1135 DD/ 0915 TD/TT: 10/14/24 0941 Life Cycle Assessment Analyst: Procedure Note Donotuseinterpreter, Image - 10/17/2024 [place] [facility] [address] [place] [address] Mammography Report Signed Patient: Madeline Santizo MMR#: [id number] 20 : 1995Acct:[id number] Age/Sex: 29 / FADM Date: 10/14/24 Loc: HO.MAMMO Attending Dr: Darling Johnston MD Ordering Physician: Darling Reyes MDResults: 1Negative Date of Service: 10/14/24Follow Up: 1 [facility] From [facility] Mammogram Procedure(s): MM tomosynthesis diagnostic BI Accession Number(s): [id number] cc: Darling Reyes MD EXAMINATION: MM DIAGNOSTIC DIGITAL BREAST TOMOSYNTHESIS, BILATERAL Bilateral Limited ultrasound. CLINICAL INFORMATION: Right breast physician felt palpable lump left breast patient felt palpable lump. COMPARISON: Mammography: Baseline. TECHNIQUE: Digital breast mammography with tomosynthesis is performed in both the craniocaudal and mediolateral oblique views along with computer-aided detection (CAD). FINDINGS: The breasts are heterogeneously dense, which may obscure small masses (ACR BI-RADS breast composition Category c). Right: There are no significant masses, abnormal calcifications, or other abnormalities. Targeted color Doppler ultrasound scanning in the area of the physician felt palpable lump in the right lower outer quadrant demonstrates normal fibroglandular breast tissue. There is no sonographic abnormality. Left: BB marker in the lower inner right breast anterior depth without underlying abnormality. No suspicious masses calcifications or other abnormal findings. Targeted color Doppler ultrasound scanning in the area the patient felt palpable lump from 3-9 o'clock demonstrates normal fibronodular breast tissue. There is no sonographic abnormality. Results are provided to the patient at time of visit by the technologist. MM/MM tomosynthesis diagnostic BI IMPRESSION: No mammographic or sonographic abnormality bilateral breasts to account for the patient's palpable lumps and physician felt palpable lumps. Recommend clinical evaluation and follow-up. ASSESSMENT: BI-RADS BI-RADS 1 - Negative RECOMMENDATION: 1. Patient should be managed based on the clinical impression. 2. Otherwise, routine annual screening mammography. Electronically signed by: Jossie Mendoza DO 2024 11:35 AM EDT Dictated By: Jossie Mendoza DO Signed By: <Electronically signed by Jossie Mendoza DO in OV> 10/14/24 1135 DD/ 4 TD/TT: 10/14/24 09 Life Cycle Assessment Analyst: Darling Johnston MD IMG BI PROCEDURES Haja brandon Result - Final * Pap Smear (11/13/2022 1:12 PM EDT) 11/13/2022 1:12 PM EDT 11/14/2022 8:00 AM EDT [facility] - 12/10/2022 11:35 AM EDT ----- ------- Name: Madeline Santizo Age/Sex: 27/F : 1995 Unit#: [id number] Attend Dr: Sally Alfaro CNM Re11/13/22 Status: DEP REF Location: [facility] Disch: ----- ------- SPEC : [id number] RECD: 11/14/22 STATUS: JOVITA DA SILVA NUM: [id number] NAVYA: 11/13/[address] [facility] [address]: Sally Alfaro CNM ENTERED: 11/14/22 SP TYPE: Pap Smr OTHR DR: Darling Reyes MD ORDERED: Pap Smear Interpretation Satisfactory for evaluation. Negative for intraepithelial lesion or malignancy. Clinical Information LMP: 10/13/22 (approximately) Previous PAP test: 12/28/17, ASCUS Material Received ThinPrep-Cervical Copies To: Darling Reyes MD [address] [place], [place] [phone] Sally Alfaro [address] [place] [address] ----- ------- Signed (signature on file) TRAVIS Bray (ASCP) 12/10/22 1135 ----- ------- END OF REPORT [facility] External Provider LAB CYT OLOGY ORDERABLES Final Result [facility] [address] [place] [phone] * HEPATITIS C AB W/REFL TO HCV RNA, QN, PCR (06/27/2021 11:08 AM EST) HEPATITIS C ANTIBODY NON-REACT LYLA NON-REACT LYLA [facility] INDEX 0.01 <1.00 [facility] Comment: HCV antibody was non-reactive. There is no laboratory evidence of HCV infection. In most cases, no further action is required. However, if recent HCV exposure is suspected, a test for HCV RNA (test code 38129) is suggested. For additional information please refer to [email or web address]/YLC74l4 (This link is being provided for informational/ educational purposes only.) 06/27/2021 11:0 8 AM EST Darling Johnston MD HISTORICAL/NON ORDERA BLE LABS Final Result Performing Organization Address [facility] de Phone Number [facility] [address] * HIV 1/2 ANTIGEN/ANTIBODY,FOURTH GENERATION W/RFL (06/27/2021 11:08 AM EST) HIV-1/2 ANTIGEN AND ANTIBODIES, 4TH GENERATION W/ REFLEX NON-REACT LYLA NON-REACT LYLA [facility] Comment: HIV-1 antigen and HIV-1/HIV-2 antibodies were not detected. There is no laboratory evidence of HIV infection. PLEASE NOTE: This information has been disclosed to you from records whose confidentiality may be protected by state law. If your state requires such protection, then the state law prohibits you from making any further disclosure of the information without the specific written consent of the person to whom it pertains, or as otherwise permitted by law. A general authorization for the release of medical or other information is NOT sufficient for this purpose. For additional information please refer to http://[employer]/faq/DXD377 (This link is being provided for informational/ educational purposes only.) The performance of this assay has not been clinically validated in patients less than 2 years old. 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
--- OUTSIDE RECORDS SUMMARY | 2025-01-03 13:31 | XMS_ITS | Clinical Summary ---
Author Organization [facility] Address [address] [id number] Care Team Providers Care Roll Forger Name Role Phone Gisell Cedeno Primary Care Provider [phone] Allergies No known active allergies Medications No [...] 84 11/16/2023 12:45 PM EDT Temperature 36.4 C (97.6 F) 11/16/2023 12:32 PM EDT Respiratory Rate 17 11/16/2023 12:45 PM EDT [...] 2024 Alcohol/Substance Use Screening 06/01/2024 Influenza Vaccine (#1) 2025 02/23/2018 Cervical Cancer Screening 11/13/2025 Pap Smear 11/13/2025 11/13/2022 RSV Vaccine (60+ years old and patients) (1 - 1-dose 75+ series) 2068 HIV Screening Completed 06/27/2021, 06/27/2021 Pneumococcal Vaccine: Pediatric (0-5 Years) and At-Risk Patients (6-50 Years) Aged Out No longer eligible based on patient's age to complete this topic Insurance [address] [address] [address]/[place] [address] [place] [address] Care Teams Roll Forger Relationship Specialty Start Date End Date Gisell Cedeno [address] [place] [address] dr Néstor Palm, [place] [id number] PCP - General Internal Medicine 04/21/18
== END 2025-01-03 12:56 | disposition home or self-care (01) ==
LOC: HO.US 12:55
PROVIDERS: PCP Internal Medicine; Visit Provider Internal Medicine
DX: I83.813 Varicose veins of bilateral lower extremities with pain (principal)
CPT/HCPCS: 93970

== ENCOUNTER → 2025-01-03 12:56 | Outpatient (BNV) | payer MEDICAID, SELFPAY | PROVIDERS: PCP Internal Medicine; Visit Provider Radiology Diagnostic Radiology | DX: I87.2 Venous insufficiency (chronic) (peripheral) (principal) | CPT/HCPCS: 93970 ==

== ENCOUNTER 2025-01-31 17:50 | Outpatient (REF) | payer MEDICAID, SELFPAY ==
--- OUTSIDE RECORDS SUMMARY | 2025-01-31 10:00 | XMS_ITS | Encounter Summary ---
Author Organization [employer] Address [address] [place] [address] [address] [place] [address] Care Team Providers Care Sushi Chef Name Role Phone Darling Reyes MD Primary Care Provide r Reason for Visit * Reason Comments Sore Throat UTI Encounter Details Date Type Department Care Team ([facility] st Contact Info) Description 01/31/2025 10:00 AM EDT Office Visit [facility] [address], [place] [phone] Tiara Lloyd DO [address] [place] [address] Pharyngitis, unspecified etiology (Primary Dx); Vaginal itching; Viral upper respiratory tract infection Social History Tobacco Use Types Packs/Day Years [...] Sign Reading Time Taken Comments Blood Pressure 120/80 01/31/2025 10:18 AM EDT Pulse 98 01/31/2025 10:18 AM EDT Temperature 36.8 C (98.2 F) 01/31/2025 10:18 AM EDT Respiratory Rate 16 01/31/2025 10:18 AM EDT Oxygen Saturation 98% 01/31/2025 10:18 AM EDT Inhaled Oxygen Concentration - - Weight 56.2 kg (124 lb) 01/31/2025 10:18 AM EDT Height - - Body Mass Index 21.28 12/29/2024 2:29 PM EDT documented in this encounter Progress Notes * Tiara Lloyd DO - 01/31/2025 10:00 AM EDT SUBJECTIVE Madeline Santizo is a 29 y.o. female who presents for Sick Visit. She presents to [place] today c/o sore throat and UTI sx. She says her throat is bothering her x 2 days. She feels a discomfort when she swallows. She also says she feels congested and has been having URRUTIA. No ear pain. She has not had any fevers. She denies any cough or SOB. No vomiting or diarrhea. She says she has not yet tried anything for sx relief. She also c/o vaginal itching which started ~ 4 days ago. She reports some clear discharge. She denies any foul odor. She denies any dysuria, hematuria, or frequency. No new partners. LMP one week ago. She uses OCPs. She reports h/o BV. 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 HENT: Positive for congestion, postnasal drip and sore throat. Respiratory: Negative for cough and shortness of breath. Cardiovascular: Negative for chest pain, palpitations and leg swelling. Gastrointestinal: Negative for abdominal pain, diarrhea, nausea and vomiting. Neurological: Positive for headaches. Negative for weakness. 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, without psychotic features (CMS/HCC) Anxiety Other constipation Vaginal discharge Dysuria Nausea Acquired thrombocytopenia (CMS/HCC) Chronic midline low back pain without sciatica Hair loss Difficulty sleeping Primary insomnia PTSD (post-traumatic stress disorder) Missed period Breast nodule Muscular pain Pain due to varicose veins of both lower extremities Upper back pain Epigastric pain Allergies Allergen Reactions Aspirin OBJECTIVE Visit Vitals BP 120/80 (BP Location: Left arm, Patient Position: Sitting, BP Cuff Size: Adult) Pulse 98 Temp 98.2 ??F (36.8 ??C) (Temporal) Resp 16 Wt 124 lb (56.2 kg) SpO2 98% BMI 21.28 kg/m?? OB Status Having periods Smoking Status Never BSA 1.59 m?? Physical Exam Constitutional: General: She is not in acute distress. Appearance: Normal appearance. HENT: Right Ear: Tympanic membrane, ear canal and external ear normal. Left Ear: Tympanic membrane, ear canal and external ear normal. Nose: Congestion present. No rhinorrhea. Mouth/Throat: Pharynx: Posterior oropharyngeal erythema present. No oropharyngeal exudate. Cardiovascular: Rate and Rhythm: Normal rate and regular rhythm. Heart sounds: Normal heart sounds. No murmur heard. Pulmonary: Effort: Pulmonary effort is normal. Breath sounds: Normal breath sounds. No wheezing or rhonchi. Abdominal: General: Bowel sounds are normal. Palpations: Abdomen is soft. There is no mass. Tenderness: There is no abdominal tenderness. There is no right CVA tenderness or left CVA tenderness. Musculoskeletal: Cervical back: Neck supple. No tenderness. Lymphadenopathy: Cervical: No cervical adenopathy. Neurological: General: No focal deficit present. Mental Status: She is alert and oriented to person, place, and time. Cranial Nerves: No cranial nerve deficit. Motor: No weakness. Gait: Gait normal. Psychiatric: Mood and Affect: Mood normal. Office Visit on 01/31/2025 Component Date Value Ref Range Status Rapid COVID Ag 01/31/2025 Negative Final Color, UA 01/31/2025 Yellow Final Clarity, UA 01/31/2025 Clear Final Glucose, UA 01/31/2025 Negative Final Bilirubin, UA 01/31/2025 Negative Final Ketones, UA 01/31/2025 Negative Final Spec Grav, UA 01/31/2025 1.025 Final Blood, UA 01/31/2025 Negative Negative, None Detected Final pH, UA 01/31/2025 6.0 Final Protein, UA 01/31/2025 Negative Final Urobilinogen, UA 01/31/2025 0.2 Final Leukocytes, UA 01/31/2025 Negative Negative, Rare, Trace Final Nitrite, UA 01/31/2025 Negative Negative, None Detected Final Rapid Strep A Screen 01/31/2025 Negative Negative, None Detected Final Influenza A 01/31/2025 Negative Negative, Indeterminate Final Influenza B 01/31/2025 Negative Negative, Indeterminate Final Assessment/Plan Diagnoses and all orders for this visit: Pharyngitis, unspecified etiology Likely allergic vs viral -provided reassurance -restart claritin daily -trial flonase nightly -encouraged supportive care measures -advised rtc if sx do not resolve Vaginal itching Recurrent sx, possible BV -send BV panel and GC/CT -advised pt will tx pending results, she agrees with plans --Follow-up with PCP as scheduled or sooner prn-- Current Outpatient Medications: acetaminophen (Tylenol 8 Hour) 650 MG ER tablet, Take 1 tablet (650 mg) by mouth every 8 (eight) hours if needed for mild pain. Do not crush, chew, or split., Disp: 40 tablet, Rfl: 1 BENZAC AC WASH 10 % external wash, APPLY TOPICALLY TO THE AFFECTED AREA(S) EVERY DAY DIRECTED, Disp: 237 g, Rfl: 1 busPIRone (Buspar) 5 MG tablet, Take 1 tablet (5 mg) by mouth 2 times daily., Disp: 60 tablet, Rfl:0 D3 Super Strength 50 MCG (2000 UT) capsule, Take 1 capsule (50 mcg) by mouth in the morning., Disp:90 capsule, Rfl: 1 Drospirenone (Slynd) 4 MG tablet, Take 1 tablet by mouth Once per day., Disp: 28 tablet, Rfl: 11 famotidine (Pepcid) 20 MG tablet, Take 1 tablet (20 mg) by mouth 2 times daily., Disp: 180 tablet, Rfl: 3 Fiber-Lax 625 MG tablet, TAKE 1 TABLET BY MOUTH TWICE DAILY, Disp: 180 tablet, Rfl: 3 fluticasone (Flonase) 50 MCG/ACT nasal spray, Administer 2 sprays into each nostril Once per day. Shake gently. Before first use, prime pump. After use, clean tip and replace cap., Disp: 16 g, Rfl: 3 hydrOXYzine HCl (Atarax) 25 MG tablet, TAKE 1 TABLET BY MOUTH AT BEDTIME NEEDED FOR ANXIETY, Disp: 30 tablet, Rfl: 1 ketoconazole (NIZOral) 2 % shampoo, APPLY TOPICALLY TO THE AFFECTED AREA(S) TWICE A WEEK DIRECTED, Disp: 120 mL, Rfl: 3 loratadine (Claritin) 10 MG tablet, Take 1 tablet (10 mg) by mouth Once per day., Disp: 30 tablet, Rfl: 3 mirtazapine (Remeron) 15 MG tablet, TAKE 1 TABLET BY MOUTH AT BEDTIME, Disp: 30 tablet, Rfl: 1 polyethylene glycol, PEG, 3350 (Glycolax) 17 GM/SCOOP powder, TAKE 17 GM MIXED IN 8 OUNCES OF WATERONCE DAILY NEEDED FOR CONSTIPATION, Disp: 510 g, Rfl: 3 senna-docusate sodium (Senokot-S) 8.6-50 MG tablet, Take 1 tablet by mouth Once per day., Disp: 30 tablet, Rfl: 11 sertraline (Zoloft) 100 MG tablet, Take 1 and a half tablets by mouth every morning for total dose of 150 mg., Disp: 45 tablet, Rfl: 1 Scribe Attestation: Jason Parks, am serving as a scribe to document services personally performed by Tiara German, based on the patient's response to questions by provider and provider's statements to me. 01/31/25 12:22 PM Physicians Attestation: I, Tiara Lloyd DO, have reviewed the information by the scribe, Jason Giron, for accuracy and agree with its content. documented in this encounter Plan of Treatment Upcoming Encounters Date Type Department Care Team (Late st Contact Info) Description 03/02/2025 9:30 AM EDT Office Visit [facility] [address], [place] [phone] Melissa Lopez, CNM [address], [place] [phone] Scheduled Orders Name Type Priority Associated Diagnoses Orde r Schedule Bacterial Vaginosis Panel Microbiology Routine Vaginal itching Ordered: 01/31/2025 Chlamydia/N. Gonorrhoeae RNA, TMA, Vaginal Microbiology Routine Vaginal itching Ordered: 01/31/2025 Culture, Urine, Routine Microbiology Routine Pharyngitis, unspecified etiology Ordered: 01/31/2025 documented as of this encounter Procedures Procedure Name Priority Date/Time Associated Diagnosis Comments POCT INFLUENZA B (ID NOW RAPID MOLECULAR) Routine 01/31/2025 10:50 AM EDT Pharyngitis, unspecified etiology POCT INFLUENZA A (ID NOW RAPID MOLECULAR) Routine 01/31/2025 10:50 AM EDT Pharyngitis, unspecified etiology POCT URINALYSIS DIPSTICK Routine 01/31/2025 10:32 AM EDT Pharyngitis, unspecified etiology POCT RAPID STREP A Routine 01/31/2025 10 :31 AM EDT Pharyngitis, unspecified etiology POCT RAPID COVID ANTIGEN Routine 01/31/2025 10:27 AM EDT Pharyngitis, unspecified etiology documented in this encounter Results * Influenza B (ID NOW Rapid Molecular) (01/31/2025 10:50 AM EDT) Pathologist [facility] Influenza B Negative Negative, Indeterminate [facility] Swab 01/31/2025 10:5 0 AM EDT Tiara Lloyd DO POINT OF CARE TEST ENTER/MELODIE T ORDERABLES Final Result Performing Organization Address [facility]/ZIP Co de Phone Number [facility] [address] [place] [phone] * Influenza A (ID NOW Rapid Molecular) (01/31/2025 10:50 AM EDT) [facility] Influenza A Negative Negative, Indeterminate [facility] Swab 01/31/2025 10:5 0 AM EDT Result [facility] Tiara Lloyd DO POINT OF CARE TEST ENTER/MELODIE T ORDERABLES Final Result Performing Organization Address [facility] de Phone Number [facility] [address] [place] [phone] * POCT urinalysis dipstick manually resulted (01/31/2025 10:32 AM EDT) [facility] Color, UA Yellow Clarity, UA Clear Glucose, UA Negative Bilirubin, UA Negative Ketones, UA Negative Spec Grav, UA 1.025 Blood, UA Negative Negative, None Detected pH, UA 6.0 Protein, UA Negative Urobilinogen, UA 0.2 Leukocytes, UA Negative Negative, Rare, Trace Nitrite, UA Negative Negative, None Detected Urine 01/31/2025 10:3 2 AM EDT Tiara Lloyd DO POINT OF CARE TEST ENTER/MELODIE T ORDERABLES Final Result * POCT rapid strep A manually resulted (01/31/2025 10:31 AM EDT) [facility] Rapid Strep A Screen Negative Negative, None Detected Swab 01/31/2025 10:3 1 AM EDT Tiara Edwardsmellisa DO POINT OF CARE TEST ENTER/MELODIE T ORDERABLES Final Result * POCT Rapid COVID Ag (01/31/2025 10:27 AM EDT) Rapid COVID Ag Negative Swab 01/31/2025 10:2 7 AM EDT Tiara Beyertonie DO POINT OF CARE TEST ENTER/MELODIE T ORDERABLES Final Result documented in this encounter Visit Diagnoses Diagnosis Pharyngitis, unspecified etiology- Primary Vaginal itching Pruritus of genital organs Viral upper respiratory tract infection Acute upper respiratory infections of unspecified site documented in this encounter Additional Health Concerns Assessment Noted Time PHQ-9 Depression Total Score: 19 024 11:31 AM EST documented as of this encounter Care Teams Sushi Chef Relationship Specialty Start Date End Date Darling Reyes MD [address] [place] [phone] PCP - General Family Medicine 02/10/18 documented as of this encounter
--- OUTSIDE RECORDS SUMMARY | 2025-01-31 17:53 | XMS_ITS | Clinical Summary ---
Author Organization [employer] Address [address] [place] [address] [address] [place] [address] Care Team Providers Care Mechanic Field Service Name Role Phone Darling Reyes MD Primary [...] the morning. 90 capsule 1 023 Active famotidine (Pepcid) 20 MG tabletIndicatio ns:Nausea Take 1 tablet (20 mg) by mouth 2 times daily. 180 tablet 3 024 Active senna-docusate sodium (Senokot-S) 8.6-50 MG tabletIndicatio ns:Chronic constipation Take 1 tablet by mouth Once per day. 30 tablet 11 024 2024 Active polyethylene glycol, PEG, 3350 (Glycolax) 17 GM/SCOOP powder TAKE 17 GM MIXED IN 8 OUNCES OF WATER ONCE DAILY NEEDED FOR CONSTIPATION 510 g 3 025 Active Fiber-Lax 625 MG tabletIndicatio ns:Other constipation TAKE 1 TABLET BY MOUTH TWICE DAILY 180 tablet 3 025 Active busPIRone (Buspar) 5 MG tabletIndicatio ns:Anxiety Take 1 tablet (5 mg) by mouth 2 times daily. 60 tablet 025 Active sertraline (Zoloft) 100 MG tabletIndicatio ns:Mild episode of recurrent major depressive disorder (CMS/HCC) Take 1 and a half tablets by mouth every morning for total dose of 150 mg. 45 tablet 1 Active Drospirenone (Slynd) 4 MG tablet Take 1 tablet by mouth Once per day. 28 tablet 11 Active BENZAC AC WASH 10 % external washIndications :Acne vulgaris APPLY TOPICALLY TO THE AFFECTED AREA(S) EVERY DAY DIRECTED 237 g Active ketoconazole (NIZOral) 2 % shampooIndicati ons:Telogen effluvium APPLY TOPICALLY TO THE AFFECTED AREA(S) TWICE A WEEK DIRECTED 120 mL 3 Active mirtazapine (Remeron) 15 MG tabletIndicatio ns:Anxiety,Adrienne re episode of recurrent major depressive disorder, without psychotic features (CMS/HCC),Prima ry insomnia TAKE 1 TABLET BY MOUTH AT BEDTIME 30 tablet 1 Active hydrOXYzine HCl (Atarax) 25 MG tabletIndicatio ns:Primary insomnia TAKE 1 TABLET BY MOUTH AT BEDTIME NEEDED FOR ANXIETY 30 tablet 1 Active loratadine (Claritin) 10 MG tabletIndicatio ns:Viral upper respiratory tract infection Take 1 tablet (10 mg) by mouth Once per day. 30 tablet 3 025 2025 Active acetaminophen (Tylenol 8 Hour) 650 MG ER tablet Take 1 tablet (650 mg) by mouth every 8 (eight) hours if needed for mild pain. Do not crush, chew, or split. 40 tablet 1 025 2024 Active fluticasone (Flonase) 50 MCG/ACT nasal spray Administer 2 sprays into each nostril Once per day. Shake gently. Before first use, prime pump. After use, clean tip and replace cap. 16 g 3 025 2025 Active loratadine (Claritin) 10 MG tabletIndicatio ns:Viral upper respiratory tract infection Take 1 tablet (10 mg) by mouth in the morning. 30 tablet 024 2024 Discontinued(R eorder (will not trigger notification to Pharmacy)) ketoconazole (NIZOral) 2 % shampooIndicati ons:Telogen effluvium Apply topically 2 (two) times a week. 120 mL 3 024 2024 Discontinued Medpura Benzoyl Peroxide 10 % external washIndications :Acne vulgaris APPLY TOPICALLY TO THE AFFECTED AREA(S) EVERY DAY DIRECTED 237 g 1 025 2024 Discontinued acetaminophen (Tylenol) 500 MG tablet Take 2 tablets (1,000 mg) by mouth every 6 (six) hours if needed for moderate pain or fever for up to 25 doses. 50 tablet 025 2024 Discontinued(D ose adjustment) mirtazapine (Remeron) 15 MG tabletIndicatio ns:Anxiety,Adrienne re [...] eorder (will not trigger notification to Pharmacy)) metroNIDAZOLE (Flagyl) 500 MG tabletIndicatio ns:BV (bacterial vaginosis) Take 1 tablet (500 mg) by mouth 2 times daily for 7 days. 14 tablet 025 2024 Active Problems Problem Noted Date Diagnosed [...] Plan (04/04/2024 11:27 AM EST): Counseling done [facility] called, patient will be follow up I [...] PRN I will start her on sertraline [facility] called today to connect her RTC 4 [...] Behavioral Health Integration Plan Follow up with [facility]. Madeline agrees to f/u for OP therapy. She reports receiving phone call, but does not recall the name of agency, but will reach out to reschedule, as therapist cancelled previous telehealth visit. Assessment [...] for support PLAN: 1. Follow up with [facility]: Not recommended for follow-up 2. Patient [...] AM EST): I advise to come to [facility] for evaluation and testing Drink plenty of fluids and rest Encounters * This document contains information received from the source organization and may not represent a complete record from that organization. Date Type Department Care Team Description 01/31/2025 10:00 AM EDT Office Visit [facility] [address] [place] [phone] Tiara Lloyd DO Pharyngitis, unspecified etiology (Primary Dx); Vaginal itching; Viral upper respiratory tract infection 01/31/2025 Telephone [facility] [address] [place] [phone] Darling Reyes MD Letter Request (I called the patient to get clarification, on her request for a letter for social security. I reached a voicemail, and left a message asking her to return my call at extension [phone].) 01/31/2025 Travel 01/23/2025 Refill [facility] [address] [place], [place] [phone] Darling Reyes MD Anxiety; Severe episode of recurrent major depressive disorder, without psychotic features (CMS/[facility]); Primary insomnia 01/21/2025 Refill [facility] [address] [place] [address] Anjali Rodriguez MD Acne vulgaris; Telogen effluvium 01/11/2025 Telephone [facility] [address] [place] [address] Melissa Lopez, [facility] March01/04/2025 Results Follow-Up [address] [place] [address] Darling Reyes MD Vascular US lower extremity venous insufficiency bilateral 01/02/[address] [address] Olya Cao FNP Results 12/30/[address] [address] Darling Reyes MD Vaginal discharge 12/30/[address] [address] Darling Reyes MD 12/29/2024 2:30 PM EDT Office Visit [address] [address] Olya Cao FNP Vaginal discharge (Primary Dx); BV (bacterial vaginosis); Noa infection 12/29/2024 Travel 12/29/[address] [address] Darling Reyes MD Nurse Triage 12/05/2024 10:45 AM EDT Office Visit [address] [address] Darling Reyes MD Pain due to varicose veins of both lower extremities; Upper back pain; Nausea; Epigastric pain 12/05/2024 Travel 12/01/[address] [address] Darling Reyes MD Nurse Triage 11/30/2024 10:00 AM EDT Office Visit [address] [place] [address] Melissa Lopez CNM Family planning counseling (Primary Dx) 11/30/2024 Travel 11/29/[address] [address] Melissa Lopez CNM CHART PREP 11/28/[address] [address] Darling Reyes MD Med Refill 11/23/2024 Telephone [facility] [address] [place] [address] Darling Reyes MD Medication Question from Last 3 Months Immunizations Immunization Administration [...] is your housing situation today? I have jayjuvetnino mora 03/16/[address] you [...] the past 12 months, has t he [employer] oil or water company threatened to shut [...] (124 lb) 01/31/2025 10:18 AM EDT Height 162.6 cm (5' 4 ) 12/29/2024 2:29 PM EDT Body Mass Index 21.28 12/29/2024 2:29 PM EDT Plan of Treatment Upcoming Encounters Date Type Department Care Team (Late st Contact Info) Description 03/02/2025 9:30 AM EDT Office Visit [facility] [address] [place] [address] Melissa Lopez, LOAN [address] [place] [address] Health Maintenance Due Date Last Done Comments Disability Screening 1993 Alcohol/Substance Use Screening 2005 HPV Vaccines (1 - 3-dose series) 2008 Hepatitis B Vaccines (1 of 3 - 19+ 3-dose series) 2012 HPV/Cotest 10/15/2023 SDOH Screening 08/19/2024 08/20/2023 Depression Monitoring 10/02/2024 04/04/2024 , 04/04/2024 COVID-19 Vaccine (3 - 2025-2 6 season) 2025 01/24/2021, 01/04/2021 Influenza Vaccine (#1) 2025 , 02/23/2018 Cervical Cancer Screening 11/13/2025 Pap Smear 11/13/2025 11/13/2022 Family Planning (PISQ) 11/30/2025 11/30/2024 Tobacco Screening 01/31/2026 01/31/2025 DTaP/Tdap/Td Vaccines (3 - T d or [...] 01/31/2025 10:27 AM EDT Pharyngitis, unspecified etiology VASC US LOWER EXTREMITY VENOUS INSUFFICIENCY BILATERAL Routine 01/03/2025 1:10 PM EDT Pain due to varicose veins of both lower extremities POCT URINALYSIS DIPSTICK Routine 12/29/2024 2:41 PM EDT Vaginal discharge POCT WET MOUNT/SHARMILA Routine 12/29/2024 2: 45 AM EDT Vaginal discharge CULTURE, URINE, ROUTINE Routine 12/29/2024 12:00 AM EDT Vaginal discharge BACTERIAL VAGINOSIS PANEL Routine 12/29/2024 12:00 AM EDT Vaginal discharge POCT , URINE Routine 12/05/2024 11:44 AM EDT Nausea PAP SMEAR Routine 11/13/2022 1:12 PM EDT ZZZ HISTORICAL HEPATITIS C AB W/REFL TO HCV RNA, QN, PCR Routine 06/27/2021 11:08 AM EST HIV 1/2 ANTIGEN/ANTIBODY, FOURTH GENERATION W/RFL Routine 06/27/2021 11:08 AM EST from Last 3 Months or Most Recently Relevant to Health Maintenance Results * Influenza B (ID NOW Rapid Molecular) (01/31/2025 10:50 AM EDT) Influenza B Negative Negative, Indeterminate [facility] Swab 01/31/2025 10:5 0 AM EDT Tiara Lloyd DO POINT OF CARE TEST ENTER/MELODIE T ORDERABLES Final Result [facility] [address] [place] [address] [phone] * Influenza A (ID NOW Rapid Molecular) (01/31/2025 10:50 AM EDT) Influenza A Negative Negative, Indeterminate [facility] Swab 01/31/2025 10:5 0 AM EDT Tiara Lloyd DO POINT OF CARE TEST ENTER/MELODIE T ORDERABLES Final Result Performing Organization Address [facility] Co de Phone Number [facility] [address] [place] [address] [phone] * POCT urinalysis dipstick manually resulted (01/31/2025 10:32 AM EDT) Only the most recent of2 resultswithin the time period is included. Color, UA Yellow Clarity, UA Clear Glucose, [...] A manually resulted (01/31/2025 10:31 AM EDT) Rapid Strep A Screen Negative Negative, None Detected Swab 01/31/2025 10:3 1 AM EDT Tiara Lloyd DO POINT OF CARE TEST ENTER/MELODIE T ORDERABLES Final Result * POCT Rapid COVID Ag (01/31/2025 10:27 AM EDT) Rapid COVID Ag Negative Swab 01/31/2025 10:2 7 AM EDT Tiara Lloyd DO POINT OF CARE TEST ENTER/MELODIE T ORDERABLES Final Result * Vascular US lower extremity venous insufficiency bilateral (01/03/2025 1:10 PM EDT) 01/03/2025 1:10 PM EDT Narrative [facility] - 01/03/2025 1:56 PM EDT [address] [address] Ultrasound Report Signed Patient: Madeline Santizo MR#: [id number] 20 : 1995 Acct:[id number] Age/Sex: 29 / F ADM Date: 01/03/25 Loc: HO.US Attending Dr: Darling Johnston MD Ordering Physician: Darling Reyes MD Date of Service: 01/03/25 Procedure(s): US venous insuf bilat Accession Number(s): [id number] cc: Darling Reyes MD EXAMINATION: US LOWER EXTREMITY VENOUS (REFLUX EXAM), BILATERAL CLINICAL INFORMATION: Venous insufficiency workup COMPARISON: None. TECHNIQUE: Color flow triplex imaging and compression Doppler was performed to evaluate both the deep and the superficial systems bilaterally. To evaluate the superficial system, the examination was performed in the upright position. Color-flow Doppler ultrasound and compression ultrasound were utilized. In addition, maneuvers were utilized to demonstrate reflux. FINDINGS: 1. DEEP VENOUS ULTRASOUND OF THE RIGHT LOWER EXTREMITY: Common Femoral Vein: Compressible, normal respiratory variation and augmented flow. Femoral Vein: Compressible, normal color flow and augmentation. Popliteal Vein: Compressible, normal augmentation. Deep Reflux: There is no evidence of reflux in the deep system in either the common femoral vein, superficial femoral or the popliteal vein. 2. SUPERFICIAL ULTRASOUND WITH DOPPLER OF RIGHT LOWER EXTREMITY: Saphenofemoral Junction: 0.6 cm; Reflux: 0 ms Proximal Thigh: 0.2 cm; Reflux: 0 ms Mid Thigh: 0.2 cm; Reflux: 0 ms Distal Thigh: 0.2 cm; Reflux: 0 ms At Knee: 0.3 cm; Reflux: 0 ms Proximal Calf: 0.2 cm; Reflux: 0 ms Mid Calf: 0.2 cm; Reflux: 0 ms Distal Calf: 0.3 cm; Reflux: 0 ms Lateral accessory GREAT SAPHENOUS VEIN: Saphenofemoral Junction: 0.3 cm; Reflux: 0 ms Mid Thigh: 0.2 cm; Reflux: 0 ms SMALL SAPHENOUS VEIN: Drainage: Thigh extension Saphenopopliteal Junction: .3 cm; Reflux: 0 ms Mid calf: 0.2 cm; Reflux: 0 ms Distal: 0.2 cm; Reflux: 0 ms VEIN OF GIACOMINI: Size: NA cm Reflux: NA ms PERFORATORS: Location: Greater saphenous vein, proximal calf Size: 0.2 cm Reflux: 0 ms VARICOSITIES > 3mm: Location: GREATER saphenous vein, and the Size: 0.3 cm Reflux: 0 ms 3. DEEP VENOUS ULTRASOUND OF THE LEFT LOWER EXTREMITY: Common Femoral Vein: Compressible, normal respiratory variation and augmented flow. Femoral Vein: Compressible, normal color flow and augmentation. Popliteal Vein: Compressible, normal augmentation. Deep Reflux: There is no evidence of reflux in the deep system in either the common femoral vein, superficial femoral or the popliteal vein. 4. SUPERFICIAL ULTRASOUND WITH DOPPLER OF LEFT LOWER EXTREMITY: GREAT SAPHENOUS VEIN: Saphenofemoral Junction: 0.9 cm; Reflux: 0 ms Proximal Thigh: 0.4 cm; Reflux: 0 ms Mid Thigh: 0.2 cm; Reflux: 0 ms Distal Thigh: 0.3 cm; Reflux: 0 ms At Knee: 0.3 cm; Reflux: 0 ms Below Knee/Proximl calf: 0.3 cm; Reflux: 0 ms Mid Calf: 0.3 cm; Reflux: 0 ms Distal Calf/Ankle: 0.3 cm; Reflux: 0 ms Lateral accessory GREAT SAPHENOUS VEIN: Saphenofemoral Junction: 0.3 cm; Reflux: 0 ms Mid Thigh: 0.2 cm; Reflux: 0 ms SMALL SAPHENOUS VEIN: Drainage: Popliteal vein Saphenopopliteal Junction: 0.3 cm; Reflux: 0 ms Mid calf: 0.3 cm; Reflux: 0 ms Distal calf: 0.3 cm; Reflux: 0 ms VEIN OF GIACOMINI: Size: NA Reflux: NA PERFORATORS: Location: Proximal small saphenous vein Size: 0.2 cm Reflux: 0 ms VARICOSITIES > 3mm: Location: None Imaged US/US venous insuf bilat IMPRESSION: Right: No venous reflux is demonstrated. Left: No venous reflux is demonstrated. Electronically signed by: Albert Frazier MD 01/03/2025 01:54 PM EDT RP Dictated By: Albert Frazier MD Signed By: <Electronically signed by Albert Frazier MD in OV> 01/03/25 1354 DD/ 1310 TD/TT: 01/03/25 1335 Engineering Research Manager: Procedure Note Donotuseinterpreter, Image - 01/03/[address] [address] Ultrasound Report Signed Patient: Madeline Santizo MMR#: [id number] 20 : 1995Acct:[id number] Age/Sex: M Date: 01/03/25 Loc: HO.US Attending Dr: Darling Johnston MD Ordering Physician: Darling Reyes MD Date of Service: 01/03/25 Procedure(s): US venous insuf bilat Accession Number(s): [id number] cc: Darling Reyes MD EXAMINATION: US LOWER EXTREMITY VENOUS (REFLUX EXAM), BILATERAL CLINICAL INFORMATION: Venous insufficiency workup COMPARISON: None. TECHNIQUE: Color flow triplex imaging and compression Doppler was performed to evaluate both the deep and the superficial systems bilaterally. To evaluate the superficial system, the examination was performed in the upright position. Color-flow Doppler ultrasound and compression ultrasound were utilized. In addition, maneuvers were utilized to demonstrate reflux. FINDINGS: 1. DEEP VENOUS ULTRASOUND OF THE RIGHT LOWER EXTREMITY: Common Femoral Vein: Compressible, normal respiratory variation and augmented flow. Femoral Vein: Compressible, normal color flow and augmentation. Popliteal Vein: Compressible, normal augmentation. Deep Reflux: There is no evidence of reflux in the deep system in either the common femoral vein, superficial femoral or the popliteal vein. 2. SUPERFICIAL ULTRASOUND WITH DOPPLER OF RIGHT LOWER EXTREMITY: Saphenofemoral Junction: 0.6 cm; Reflux: 0 ms Proximal Thigh: 0.2 cm; Reflux: 0 ms Mid Thigh: 0.2 cm; Reflux: 0 ms Distal Thigh: 0.2 cm; Reflux: 0 ms At Knee: 0.3 cm; Reflux: 0 ms Proximal Calf: 0.2 cm; Reflux: 0 ms Mid Calf: 0.2 cm; Reflux: 0 ms Distal Calf: 0.3 cm; Reflux: 0 ms Lateral accessory GREAT SAPHENOUS VEIN: Saphenofemoral Junction: 0.3 cm; Reflux: 0 ms Mid Thigh: 0.2 cm; Reflux: 0 ms SMALL SAPHENOUS VEIN: Drainage: Thigh extension Saphenopopliteal Junction: .3 cm; Reflux: 0 ms Mid calf: 0.2 cm; Reflux: 0 ms Distal: 0.2 cm; Reflux: 0 ms VEIN OF GIACOMINI: Size: NA cm Reflux: NA ms PERFORATORS: Location: Greater saphenous vein, proximal calf Size: 0.2 cm Reflux: 0 ms VARICOSITIES > 3mm: Location: GREATER saphenous vein, and the Size: 0.3 cm Reflux: 0 ms 3. DEEP VENOUS ULTRASOUND OF THE LEFT LOWER EXTREMITY: Common Femoral Vein: Compressible, normal respiratory variation and augmented flow. Femoral Vein: Compressible, normal color flow and augmentation. Popliteal Vein: Compressible, normal augmentation. Deep Reflux: There is no evidence of reflux in the deep system in either the common femoral vein, superficial femoral or the popliteal vein. 4. SUPERFICIAL ULTRASOUND WITH DOPPLER OF LEFT LOWER EXTREMITY: GREAT SAPHENOUS VEIN: Saphenofemoral Junction: 0.9 cm; Reflux: 0 ms Proximal Thigh: 0.4 cm; Reflux: 0 ms Mid Thigh: 0.2 cm; Reflux: 0 ms Distal Thigh: 0.3 cm; Reflux: 0 ms At Knee: 0.3 cm; Reflux: 0 ms Below Knee/Proximl calf: 0.3 cm; Reflux: 0 ms Mid Calf: 0.3 cm; Reflux: 0 ms Distal Calf/Ankle: 0.3 cm; Reflux: 0 ms Lateral accessory GREAT SAPHENOUS VEIN: Saphenofemoral Junction: 0.3 cm; Reflux: 0 ms Mid Thigh: 0.2 cm; Reflux: 0 ms SMALL SAPHENOUS VEIN: Drainage: Popliteal vein Saphenopopliteal Junction: 0.3 cm; Reflux: 0 ms Mid calf: 0.3 cm; Reflux: 0 ms Distal calf: 0.3 cm; Reflux: 0 ms VEIN OF GIACOMINI: Size: NA Reflux: NA PERFORATORS: Location: Proximal small saphenous vein Size: 0.2 cm Reflux: 0 ms VARICOSITIES > 3mm: Location: None Imaged US/US venous insuf bilat IMPRESSION: Right: No venous reflux is demonstrated. Left: No venous reflux is demonstrated. Electronically signed by: Albert Frazier MD 01/03/2025 01:54 PM EDT RP Dictated By: Albert Frazier MD Signed By: <Electronically signed by Albetr Frazier MD in OV> 01/03/25 1354 DD/ 1310 TD/TT: 01/03/25 1335 Engineering Research Manager: us Darling Johnston MD CV VASCULAR PROCEDURE S Edited Result - Final [facility] [address] [place] [phone] * (ABNORMAL) POCT Wet Mount/SHARMILA (12/29/2024 2:45 AM EDT) SHARMILA Prep Comment:positive Vaginal Fluid Vaginal structure / Unknown 12/29/2024 2:45 AM EDT us Olya Cao TOLL TRANSMISSION WORKER POINT OF CARE TEST ENTER/EDIT ORDERABLES Final Result * (ABNORMAL) Bacterial Vaginosis Panel (12/29/2024 12:00 AM EDT) TRICHOMONAS VAGINALIS DETECTION BY PCR NOT DETECTED Not Detect [facility] BACTERIAL VAGINOSIS DETECTION BY PCR POSITIVE(A) Negative [facility] Comment:The BV organism targ ets of [...] GROUP DETECTION BY PCR DETECTED(A) Not Detect [facility] Noa glab krusei PCR NOT DETECTED Not Detect [facility] Swab Vaginal structure / Unknown 12/29/2024 12/29/2024 [facility] LAB MICROBIOLOGY - GENERAL ORD ERABLES Final Result Performing Organization Address City/[facility]/ZIP Co de Phone Number [facility] [address] [place] [phone] * Urine Culture Routine (12/29/2024 12:00 AM EDT) Urine Urine specimen obtained by clean catch procedure / Unknown 12/29/2024 12/29/2024 Comment:UACC Narrative [facility] - 12/31/2024 10:20 AM EDT Urine Culture Report Result Urine Culture > 100,000 cfu/ml Urine Culture Mixed bacterial jhoan characteristic of Urine Culture urogenital contamination. Specimen Source: Urine clean catch Result [facility] LAB MICROBIOLOGY - GENERAL ORD ERABLES Final Result Performing Organization Address [facility]/ZIP Co de Phone Number [facility] [address] [place] [phone] * POCT Urine (12/05/2024 11:44 AM EDT) Preg Test, Ur Negative Negative, Indeterminate, None Detected, Invalid, Specimen unsatisfactory for evaluation, Weakly Positive, 2+ QC Media Lot # [id number] Lot# Expiration Date ,026 QC TEST ,,026 Urine 12/05/2024 11:4 4 AM EDT Darling Johnston MD POINT OF CARE TEST EN TER/EDIT ORDERABLES Final Result * Pap Smear (11/13/2022 1:12 PM EDT) 11/13/2022 1:12 PM EDT 11/14/2022 8:00 AM EDT [facility] - 12/10/2022 11:35 AM EDT ----- ------- Name: Madeline Santizo Age/Sex: 27/F : 1995 Unit#: [id number] Attend Dr: Sally Alfaro Re11/13/22 Status: DEP REF Location: AP Disch: ----- ------- SPEC : [id number] RECD: 11/14/22 STATUS: JOVITA DA SILVA NUM: [id number] NAVYA: 11/13/22-[address] [facility] [address]: Sally Alfaro ENTERED: 11/14/22 SP TYPE: Pap Smr OTHR DR: Darling Reyes MD ORDERED: Pap Smear Interpretation Satisfactory for evaluation. Negative for intraepithelial lesion or malignancy. Clinical Information LMP: 10/13/22 (approximately) Previous PAP test: 12/28/17, ASCUS Material Received ThinPrep-Cervical Copies To: Darling Reyes MD [address] [place] [phone] [address] Barber [address] [place] [phone] ----- ------- Signed (signature on file) TRAVIS Bray ([facility]) 12/10/22 1135 ----- ------- END OF REPORT [facility] External Provider LAB [facility] ORDERABLES Final Result [facility] [address] [place] [phone] * HEPATITIS C AB W/REFL TO HCV RNA, QN, PCR (06/27/2021 11:08 AM EST) HEPATITIS C ANTIBODY NON-REACT LYLA NON-REACT LYLA [facility] INDEX 0.01 <1.00 [facility] Comment: HCV antibody was non-reactive. There is no laboratory evidence of HCV infection. In most cases, no further action is required. However, if recent HCV exposure is suspected, a test for HCV RNA (test code 21439) is suggested. For additional information please refer to http://education.CafeMom/faq/YRG88m3 (This link is being provided for informational/ educational purposes only.) 06/27/2021 11:0 8 AM EST Darling Johnston MD HISTORICAL/NON ORDERA BLE LABS Final Result Performing Organization Address [facility] Co de Phone Number [facility] [address] * HIV 1/2 ANTIGEN/ANTIBODY,FOURTH GENERATION W/RFL (06/27/2021 11:08 AM EST) HIV-1/2 ANTIGEN AND ANTIBODIES, 4TH GENERATION W/ REFLEX NON-REACT LYLA NON-REACT LYLA [facility] Comment: HIV-1 antigen and HIV-1/HIV-2 [...] purpose. For additional information please refer to http://education.CafeMom/faq/HYE592 (This link is being provided for informational/ educational purposes only.) The performance of this assay has not been clinically validated in patients less than 2 years old. 06/27/2021 11:0 8 AM EST us Darling Johnston MD LAB BLOOD ORDERABLES Final Result Performing Organization Address [facility] de Phone Number [facility] [address] from Last 3 Months or Most Recently Relevant to Health Maintenance Insurance [phone] Care Teams Mechanic Field Service Relationship Specialty Start Date End Date Darling Reyes MD [address] [place] [phone] PCP - General Family Medicine 02/10/18
--- OUTSIDE RECORDS SUMMARY | 2025-01-31 17:54 | XMS_ITS | Clinical Summary ---
Author Organization [facility] Address [address] [id number] Care Team Providers Care Automatic Tire Tester Name Role Phone Gisell Cedeno Primary Care Provider [phone] Allergies No known active allergies Medications No [...] Health Maintenance Due Date Last Done Comments Varicella Vaccines (1 of 2 - 13+ 2-dose series) 2006 Hepatitis B Vaccines (1 of 3 - 19+ 3-dose series) 2012 DTaP,Tdap,and Td Vaccines (1 - Tdap) 10/15/2015 Alcohol/Substance Use Screening 06/01/2024 COVID-19 Vaccine ( - season) 2025 Influenza Vaccine (#1) 2025 02/23/2018 RSV Vaccine (60+ years old and patients) (1 - 1-dose 75+ series) 2068 HIV Screening Completed 06/27/2021, 06/27/2021 Cervical Cancer Screening Discontinued Pap Smear Discontinued 11/13/2022 HPV and Pap Smear Discontinued Pneumococcal Vaccine: Pediatric (0-5 Years) and At-Risk Patients (6-50 Years) Aged Out No longer eligible b ased on patient's age to complete this topic Insurance /FREE CARE Care Teams Automatic Tire Tester Relationship Specialty Start Date End Date Gisell Cedeno [address] [place], [place] [address] PCP - General Internal Medicine 04/21/18
--- OUTSIDE RECORDS SUMMARY | 2025-01-31 17:54 | XMS_ITS | Encounter Summary ---
Author Organization [employer] Address [address] [place] [address] 7t [place] [address] Care Team Providers Care Sliver Cutter Name Role Phone Darling Reyes MD Primary Care Provide r Encounter Details Date Type Department Care Team (Latest Contact Info) Description 01/31/2025 Travel Social History Tobacco Use Types Packs/Day [...] as of this encounter Plan of Treatment Upcoming Encounters Date Type Department Care Team (Late st Contact Info) Description 03/02/2025 9:30 AM EDT Office Visit [facility] [address] [place] [address] Melissa Lopez CNM [address] [place] [address] documented as of this encounter Visit Diagnoses Not on filedocumented in this encounter Additional Health Concerns Assessment Noted Time PHQ-9 Depression Total Score: 19 024 11:31 AM EST documented as of this encounter Care Teams Sliver Cutter Relationship Specialty Start Date End Date Darling Reyes MD [address] [place] [address] PCP - General Family Medicine 02/10/18 documented as of this encounter
--- OUTSIDE RECORDS SUMMARY | 2025-01-31 17:54 | XMS_ITS | Encounter Summary ---
Author Organization [employer] Address [address] [facility] 7t [place] [address] Care Team Providers Care Manager Games Name Role Phone Darling Reyes MD Primary Care Provide r Encounter Details Date Type Department Care Team (Latest Contact Info) Description 01/04/2025 Results Follow-Up [facility] [address] [place], [place] [phone] Darling Reyes MD [address] [place] [address] Vascular US lower extremity venous insufficiency bilateral Social History Tobacco Use Types Packs/Day Years [...] Description 03/02/2025 9:30 AM EDT Office Visit [facility] [address] [place] [address] Melissa Lopez CNM [address] [place] [address] documented as of this encounter Visit Diagnoses Not on filedocumented in this encounter Additional Health Concerns Assessment Noted Time PHQ-9 Depression Total Score: 19 024 11:31 AM EST documented as of this encounter Care Teams Manager Games Relationship Specialty Start Date End Date Darling Reyes MD [address] [place] [address] PCP - General Family Medicine 02/10/18 documented as of this encounter
--- OUTSIDE RECORDS SUMMARY | 2025-01-31 17:54 | XMS_ITS | Encounter Summary ---
Author Organization [employer] Address [address] [place] [address] 7 [place] [address] Care Team Providers Care Microarray Analyst Name Role Phone Darling Reyes MD Primary Care Provide r Reason for Visit * Reason Onset Date Comments Med Refill 11/28/2024 Encounter Details Date Type Department Care Team ([facility] st Contact Info) Description 11/28/2024 Telephone [facility] [address] [place], [place] [phone] Darling Reyes MD [address] [place], [place] [phone] Med Refill Social History Tobacco Use Types Packs/Day Years [...] encounter Miscellaneous Notes * Telephone Encounter - Tiara Peres LPN - 11/28/2024 11:52 AM EDT Medications requested have refills. * Telephone Encounter - Reji Thornton - 11/28/2024 11:49 AM EDT TC from pt requesting medication refill. Medications needing refill: hydrOXYzine HCl (Atarax) 25 MG tablet mirtazapine (Remeron) 15 MG tablet sertraline (Zoloft) 100 MG tablet To be sent to: [facility] - [place], [place] - [address] [place] [address] documented in this encounter Plan of Treatment Upcoming Encounters Date Type Department Care Team ([facility] st Contact Info) Description 03/02/2025 9:30 AM EDT Office Visit [facility] [address] [place] [address] Melissa Lopez CNM [address] [place] [address] documented as of this encounter Visit Diagnoses Not on filedocumented in this encounter Additional Health Concerns Assessment Noted Time PHQ-9 Depression Total Score: 19 024 11:31 AM EST documented as of this encounter Care Teams Microarray Analyst Relationship Specialty Start Date End Date Darling Reyes MD [address] [place] [address] PCP - General Family Medicine 02/10/18 documented as of this encounter
--- OUTSIDE RECORDS SUMMARY | 2025-01-31 17:54 | XMS_ITS | Encounter Summary ---
Author Organization [employer] Address [address] [facility] 7t [place] [address] Care Team Providers Care Food Service Name Role Phone Darling Reyes MD Primary Care Provide r Encounter Details Date Type Department Care Team ([facility] st Contact Info) Description 08/03/2023 Orders Only [facility] [address] [place], [place] [phone] Darling Reyes MD [address] [place], [place] [phone] Social History Tobacco Use Types Packs/Day Years [...] EDT Office Visit [facility] [address] [place] [address] Melissa Lopez CNM [address] [place] [address] documented as of this encounter Visit Diagnoses Not on filedocumented in this encounter Additional Health Concerns Assessment Noted Time PHQ-9 Depression Total Score: 10 023 10:15 AM EST documented as of this encounter Care Teams Food Service Relationship Specialty Start Date End Date Darling Reyes MD [address] [place] [address] PCP - General Family Medicine 02/10/18 documented as of this encounter
--- OUTSIDE RECORDS SUMMARY | 2025-01-31 17:54 | XMS_ITS | Encounter Summary ---
Author Organization [employer] Address [address] [facility] 7t [place] [address] Care Team Providers Care Infrastructure Solutions Architect Name Role Phone Darling Reyes MD Primary Care Provide r Encounter Details Date Type Department Care Team ([facility] st Contact Info) Description 08/28/2024 Orders Only [facility] [address] [place] [phone] George Knapp MD [address] [place], [place] [phone] Dysuria (Primary Dx) Social History Tobacco Use [...] Description 03/02/2025 9:30 AM EDT Office Visit [facility] [address] [place] [address] Melissa Lopez CN [address] [place] [address] documented as of this encounter Procedures Procedure Name Priority Date/Time Associated Diagnosis Comments CULTURE, URINE, ROUTINE Routine 08/29/2024 12:00 AM EDT Dysuria documented in this encounter Results * Culture, Urine, Routine (08/29/2024 12:00 AM EDT) Urine Urine specimen obtained by clean catch procedure / Unknown 08/29/2024 08/29/2024 Comment:UACC Narrative [facility] - 08/31/2024 11:03 AM EDT Urine Culture No growth. Specimen Source: Urine clean catch us George Knapp MD LAB MICROBIOLOGY - GENERAL ORDER JACK Final Result [facility] [address] [place] [address] [phone] documented in this encounter Visit Diagnoses Diagnosis Dysuria- Primary documented in this encounter Additional Health Concerns Assessment Noted Time PHQ-9 Depression Total Score: 19 2 024 11:31 AM EST documented as of this encounter Care Teams Infrastructure Solutions Architect Relationship Specialty Start Date End Date Darling Reyes MD [address] [place] [address] PCP - General Family Medicine 02/10/18 documented as of this encounter
--- OUTSIDE RECORDS SUMMARY | 2025-01-31 17:54 | XMS_ITS | Clinical Summary ---
Author Organization [facility] Address [address] [place] [address] Care Team Providers Care Business Systems Administrator Name Role Phone Unavailable Primary Care Provider Unavailabl e Source Comments PLEASE NOTE, if this patient is a minor, it may be UNLAWFUL to discuss sensitive information that is contained in these records (such as FAMILY PLANNING, MENTAL HEALTH or SUBSTANCE ABUSE) with the minor patient's parent or other person without the patient's specific authorization.[facility] Allergies Active Allergy Reactions Criticality Noted Date Comments Aspirin 05/22/2022 Medications acetaminophen (TYLENOL) 500 mg tablet Take 500 mg by mouth every 6 (six) hours as needed. Active benzoyl peroxide (BENZAC AC) 10 % Apply 237 g topically nightly at bedtime. Active FIBER-LAX 625 mg tablet Take 1 Tablet by mouth 2 (two) times daily. Active cholecalciferol (VITAMIN D-3) 50 mcg (2,000 unit) capsule Take 50 mcg by mouth daily. 06/26/19 23 Active docusate sodium (COLACE) 100 mg capsule Take 100 mg by mouth 2 (two) times daily. 02/25/20 24 Active SLYND 4 mg (28) tab Take 1 Tablet by mouth daily. 12/01/19 25 Active famotidine (PEPCID) 20 mg tablet Take 20 mg by mouth 2 (two) times daily. Active fluconazole (DIFLUCAN) 150 mg tablet Take 150 mg by mouth 1 (one) time. 01/03/20 25 Active levonorgestreL (PLAN B) 1.5 mg tablet Take 1.5 mg by mouth once. 01/20/20 24 Active loratadine (CLARITIN) 10 mg tablet Take 10 mg by mouth daily. 06/19/19 24 Active metroNIDAZOLE (METROGEL) 0.75 % (37.5mg/5 gram) vaginal gel Place 1 Applicator vaginally nightly at bedtime. 12/30/19 Active metroNIDAZOLE (FLAGYL) 500 mg tablet Take 500 mg by mouth 2 (two) times daily. 01/03/20 25 Active nitrofurantoin, macrocrystal-monoh ydrate, (MACROBID) 100 mg capsule Take 100 mg by mouth 2 (two) times daily. 08/27/19 25 Active ondansetron ODT (ZOFRAN-ODT) 4 mg disintegrating tablet Take 4 mg by mouth 3 (three) times daily as needed. 11/29/19 25 Active polyethylene glycol, PEG, 3350 (GLYCOLAX) 17 gram/dose powder Take 17 g by mouth once daily. 12/30/19 25 Active STOOL SOFTENER-STIMULANT LAXAT 8.6-50 mg per tablet Take 1 Tablet by mouth once daily. Active busPIRone (BUSPAR) 10 mg tablet Take 1 Tablet by mouth 2 (two) times daily for 30 days. 60 Tablet 01/13/20 25 Active sertraline 200 mg capIndications:thelma or depressive disorder Take 200 mg by mouth once daily for 30 days Indications: major depressive disorder. 30 Capsule 01/13/20 25 025 Active hydrOXYzine HCL (ATARAX) 25 mg tablet Take 1 Tablet by mouth 3 (three) times daily as needed for anxiety for up to 30 days. 90 Tablet 01/13/20 25 025 Active QUEtiapine (SEROQUEL) 50 mg tablet Take 1 Tablet by mouth nightly at bedtime for 30 days. 30 Tablet 01/13/20 25 025 Active busPIRone (BUSPAR) 5 mg tablet Take 10 mg by mouth 2 (two) times daily. 025 Discontin ued(Reord er (E-Cancel Not Sent)) hydrOXYzine HCL (ATARAX) 25 mg tablet Take 25 mg by mouth 3 (three) times daily as needed for anxiety. 025 Discontin ued(Reord er (E-Cancel Not Sent)) mirtazapine (REMERON) 15 mg tablet Take 15 mg by mouth nightly at bedtime. Discontin ued(Quant ity/Dosag e and/or Sig change) sertraline 200 mg capIndications:thelma or depressive disorder Take 200 mg by mouth once daily Indications: major depressive disorder. 025 Discontin ued(Reord er (E-Cancel Not Sent)) Active Problems Problem Noted Date Diagnosed Date Chronic idiopathic thrombocytopenic purpura ([facility]) 01/12/2025 Overview (01/12/2025): Per CIS note Dengue 01/12/2025 GBS carrier 01/12/2025 ([facility]) 01/12/2025 Epigastric pain 12/05/2024 Pain due to varicose veins of both lower extremi ties 12/05/2024 Upper back pain 12/05/2024 Breast nodule 08/15/2024 Missed period 08/15/2024 Muscular pain 08/15/2024 Primary insomnia 05/10/2024 PTSD (post-traumatic stress disorder) 05/10/2024 Assessment & Plan (01/19/2025 1:38 PM EDT): Assessment: Patient experiences anxiety attacks characterized by restlessness, discomfort, vomiting, dizziness, sweating, and irritability. Current medication regimen provides some relief, but symptoms persist. She is hypervigilant with flashbacks of the past. Plan: - Increase BuSpar to 10 mg PO twice daily - Increase hydroxyzine to 25 mg PO three times daily - Increase Sertraline to 200 mg Difficulty sleeping 04/04/2024 Hair loss 01/06/2024 Chronic midline low back pain without sciatica 0 10/06/2023 Dysuria 08/31/2023 Nausea 08/31/2023 Vaginal discharge 08/31/2023 Other constipation 05/19/2023 Anxiety 03/18/2023 Severe episode of recurrent major depressive disorder, without psychotic features ([facility]) 03/18/2023 Overview (01/19/2025): The primary clinical decision involved discontinuing mirtazapine due to problematic appetite stimulation causing the patient to crave food every 5 minutes, and replacing it with quetiapine 50mg for sleep, which provides sedation without appetite effects. Sertraline was increased from 150mg to 200mg daily to optimize antidepressant efficacy given persistent depressive symptoms, while buspirone was doubled from 5mg to 10mg BID to better control anxiety attacks that have required hospitalization. Hydroxyzine was changed from PRN to scheduled 25mg TID dosing to provide consistent anxiolytic coverage throughout the day. These adjustments address the patient's three primary symptom clusters (depression, anxiety, insomnia) while eliminating the problematic side effect of increased appetite, with a 4-week follow-up scheduled to monitor efficacy and tolerability of the new regimen. Assessment & Plan (01/19/2025 1:26 PM EDT): Major Depressive Disorder Assessment: Patient reports a 3-year history of depression with current symptoms including lack of energy, poor concentration, social isolation, anhedonia, and decreased appetite. Recent exacerbation due to family member's . Previous depression following traumatic of child with hypoxic brain injury 6 years ago. Current sertraline dose may be suboptimal given persistent symptoms. Plan: - Discontinue Remeron 15 mg - Increase sertraline to 200 mg PO daily - Start Quetiapine 50 mg PO at bedtime for sleep History of ITP 10/23/2022 Fatigue 10/22/2022 Metrorrhagia 10/28/2017 Encounters Date Type Department Care Team Description 01/12/2025 1:00 PM EDT Behavioral Health Visit [facility] [address] [place] [phone] Jazz Gutierrez APRN from Last 3 Months Immunizations Immunization Administration Dates Next Due Flu, Preservative Free 02/23/2018 INFLUENZA, SEASONAL, INJECTABLE, PRESERVATIVE FR EE 08/23/2020 TDAP 10/18/2020,05/17/2018 Social History Tobacco Use Types Packs/Day Years Used Date Smoking Tobacco: Never Assessed Comments Unknown Sex and Gender Information Value Date Recorded Sex Assigned at Female 11/22/2024 10:03 AM PDT Legal Sex Female 10:03 AM PDT Gender Identity Female 11/22/2024 10:03 AM PDT Sexual Orientation Not on file Plan of Treatment Health Maintenance Due Date Last Done Comments Anxiety Screening 1993 Depression Monitoring 1993 HPV Screening 1993 Hepatitis C Screening 1993 Lipid Screening 1993 Pap + HPV 1993 Tobacco Screening 1993 Relationship Safety Screening/Counseling 2008 Hypertension Screening (#1) 10/15/2011 Imm-Hepatitis B (1 of 3 - 19 + 3-dose series) 2012 Cervical Cancer Screening 2014 Pap Smear 2014 Alcohol and Drug Screen 06/01/2024 [id number] (1 - season) 2025 Imm-Influenza (#1) 2025 08/23/2020, 02/23/2018 Diabetes Screening 08/26/2025 08/26/2024, 0 08/20/2023, 06/27/2021 Imm-DTaP/Tdap/Td (3 - Td or Tdap) 10/18/2030 021, 05/17/2018 HIV Screening Completed 06/27/2021, 06/27/2021 Cervical Ablation/Cold-Knife Conization Discontinued Cervical Cryotherapy Discontinued Colposcopy Discontinued Endometrial Biopsy Discontinued Excision/Leep Discontinued HPV Genotyping Discontinued Vaginal Pap Discontinued Vulvoscopy Discontinued Insurance [facility]
--- OUTSIDE RECORDS SUMMARY | 2025-01-31 17:54 | XMS_ITS | Encounter Summary ---
Author Organization [employer] Address [address] [place] [address] 7t [place] [address] Care Team Providers Care Monitor And Storage Bin Tender Name Role Phone Darling Reyes MD Primary Care Provide r Reason for Visit * Reason Onset Date Comments Letter Request 01/31/2025 I called the pat ient to get clarification, on her request for a letter for social security. I reached a voicemail, and left a message asking her to return my call at extension [phone]. Encounter Details Date Type Department Care Team ([facility] Contact Info) Description 01/31/2025 Telephone [facility] [address] [place] [address] Darling Reyes MD [address] [place] [address] Letter Request (I called the patient to get clarification, on her request for a letter for social security. I reached a voicemail, and left a message asking her to return my call at extension [phone].) Social History Tobacco Use Types Packs/Day Years [...] encounter Miscellaneous Notes * Telephone Encounter - Karen Schmitz MA - 01/31/2025 1:59 PM EDT I called the patient to get clarification, on her request for a letter for social security. I reached a voicemail, and left a message asking her to return my call at extension [phone]. documented in this encounter Plan of Treatment Upcoming Encounters Date Type Department Care Team (Late st Contact Info) Description 03/02/2025 9:30 AM EDT Office Visit [facility] [address] [place] [address] Melissa Lopez CNM [address] [place] [address] documented as of this encounter Visit Diagnoses Not on filedocumented in this encounter Additional Health Concerns Assessment Noted Time PHQ-9 Depression Total Score: 19 024 11:31 AM EST documented as of this encounter Care Teams Monitor And Storage Bin Tender Relationship Specialty Start Date End Date Dalring Reyes MD [address] [place] [address] PCP - General Family Medicine 02/10/18 documented as of this encounter
[2025-01-31 20:37] LABS: Bacterial Vaginosis PCR NEGATIVE (Negative); Candida Group PCR NOT DETECTED (Not Detect); Candida glab krusei PCR NOT DETECTED (Not Detect); Trichomonas vaginalis PCR NOT DETECTED (Not Detect)
[2025-01-31 21:21] LABS: CT PCR NOT DETECTED (Not Detect.); NG PCR NOT DETECTED (Not Detect.)
== END 2025-01-31 17:51 | disposition home or self-care (01) ==
LOC: HO.HHCLNP 17:50
PROVIDERS: Visit Provider Family Medicine
DX: Z11.3 Encounter for screening for infections with a predominantly sexual mode of transmission (principal); Z11.8 Encounter for screening for other infectious and parasitic diseases; N89.8 Other specified noninflammatory disorders of vagina; J02.9 Acute pharyngitis, unspecified
CPT/HCPCS: 81515; 87086; 87491; 87591

== ENCOUNTER 2025-02-17 10:59 | Outpatient (REF) | payer MEDICAID, SELFPAY ==
--- OUTSIDE RECORDS SUMMARY | 2025-02-17 10:40 | XMS_ITS | Encounter Summary ---
Author Organization [employer] Address [address] [place] [address] 7[address] [place] [address] Care Team Providers Care Tank Crewmember Name Role Phone Darling Reyes MD Primary Care Provide r Reason for Visit * Reason Comments Vaginal Discharge Encounter Details Date Type Department Care Team ([facility] Contact Info) Description 02/17/2025 10:40 AM EDT Office Visit [facility] [address] [place] [address] [phone] Darling Reyes MD [address] [place] [address] Vaginal discharge Social History Tobacco Use Types Packs/Day Years [...] Sign Reading Time Taken Comments Blood Pressure 120/77 02/17/2025 10:40 AM EDT Pulse 70 02/17/2025 10:40 AM EDT Temperature 35.9 C (96.7 F) 02/17/2025 10:40 AM EDT Respiratory Rate 18 02/17/2025 10:40 AM EDT Oxygen Saturation 99% 02/17/2025 10:40 AM EDT Inhaled Oxygen Concentration - - Weight 57.6 kg (127 lb) 02/17/2025 10:40 AM EDT Height - - Body Mass Index 21.8 12/29/2024 2:29 PM EDT documented in this encounter Progress Notes * Darling Johnston MD - 02/17/2025 10:40 AM EDT SUBJECTIVE: Madeline Santizo is a 29 y.o. year old female who presents for acute visit . 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 HENT: Negative. Respiratory: Negative. Cardiovascular: Negative. Genitourinary: Positive for vaginal discharge. Negative for decreased urine volume, difficulty urinating, dyspareunia, dysuria, enuresis, flank pain, frequency, genital sores, hematuria, menstrual problem, pelvic pain, urgency, vaginal bleeding and vaginal pain. OBJECTIVE: Vitals: 02/17/25 1040 BP: 120/77 BP Location: Right arm Patient Position: Sitting BP Cuff Size: Adult Pulse: 70 Resp: 18 Temp: 96.7 ??F (35.9 ??C) TempSrc: Temporal SpO2: 99% Weight: 127 lb (57.6 kg) Physical Exam Constitutional: Appearance: Normal appearance. Cardiovascular: Rate and Rhythm: Normal rate and regular rhythm. Pulmonary: Effort: Pulmonary effort is normal. Breath sounds: Normal breath sounds. Abdominal: General: Abdomen is flat. Palpations: Abdomen is soft. Neurological: Mental Status: She is alert. Follow Up: No follow-ups on file. Medications Ordered Prior to Encounter[3] Problem List Items Addressed This Visit Vaginal discharge I we will treat her empirically for yeast infection with fluconazole 150 mg today and then after 72hours another tablet BV and CG ordered today patient will be contacted with results Relevant Medications fluconazole (Diflucan) 150 MG tablet Other Relevant Orders POCT urinalysis dipstick manually resulted (Completed) Bacterial Vaginosis Panel Chlamydia/N. Gonorrhoeae RNA, TMA, Vaginal [1] Patient Active Problem List Diagnosis Fatigue Metrorrhagia [...] lower extremities Upper back pain Epigastric pain [2] Family History Problem Relation Name Age of Onset Diabetes Mother Breast cancer Maternal Grandmother [3] Current Outpatient Medications on File Prior to Visit Medication Sig Dispense Refill acetaminophen (Tylenol 8 Hour) 650 MG ER tablet Take 1 tablet (650 mg) by mouth every 8 (eight) hours if needed for mild pain. Do not crush, chew, or split. 40 tablet 1 BENZAC AC WASH 10 % external wash APPLY TOPICALLY TO THE AFFECTED AREA(S) EVERY DAY DIRECTED 237g 1 busPIRone (Buspar) 5 MG tablet Take 1 tablet (5 mg) by mouth 2 times daily. 60 tablet 0 D3 Super Strength 50 MCG (2000 UT) capsule Take 1 capsule (50 mcg) by mouth in the morning. 90 capsule 1 Drospirenone (Slynd) 4 MG tablet Take 1 tablet by mouth Once per day. 28 tablet 11 famotidine (Pepcid) 20 MG tablet Take 1 tablet (20 mg) by mouth 2 times daily. 180 tablet 3 Fiber-Lax 625 MG tablet TAKE 1 TABLET BY MOUTH TWICE DAILY 180 tablet 3 fluticasone (Flonase) 50 MCG/ACT nasal spray Administer 2 sprays into each nostril Once per day. Shake gently. Before first use, prime pump. After use, clean tip and replace cap. 16 g 3 hydrOXYzine HCl (Atarax) 25 MG tablet TAKE 1 TABLET BY MOUTH AT BEDTIME NEEDED FOR ANXIETY 30 tablet 1 ketoconazole (NIZOral) 2 % shampoo APPLY TOPICALLY TO THE AFFECTED AREA(S) TWICE A WEEK [id number] mL 3 loratadine (Claritin) 10 MG tablet Take 1 tablet (10 mg) by mouth Once per day. 30 tablet 3 mirtazapine (Remeron) 15 MG tablet TAKE 1 TABLET BY MOUTH AT BEDTIME 30 tablet 1 polyethylene glycol, PEG, 3350 (Glycolax) 17 GM/SCOOP powder TAKE 17 GM MIXED IN 8 OUNCES OF WATER ONCE DAILY NEEDED FOR CONSTIPATION 510 g 3 senna-docusate sodium (Senokot-S) 8.6-50 MG tablet Take 1 tablet by mouth Once per day. 30 tablet 11 sertraline (Zoloft) 100 MG tablet Take 1 and a half tablets by mouth every morning for total dose of 150 mg. 45 tablet 1 No current facility-administered medications on file prior to visit. documented in this encounter Miscellaneous Notes * Assessment & Plan Note - Darling Johnston MD - 02/17/2025 11:43 AM EDT Associated Problem(s): Vaginal discharge I we will treat her empirically for yeast infection with fluconazole 150 mg today and then after 72hours another tablet BV and CG ordered today patient will be contacted with results documented in this encounter Plan of Treatment Upcoming Encounters Date Type Department Care Team (Late st Contact Info) Description 03/02/2025 9:30 AM EDT Office Visit [facility] [address] [place] [address] [phone] Melissa Lopez, [place] [address] [place] [address] 05/04/2025 10:15 AM EST Office Visit [address] [phone] Darling Reyes MD [address] [place], [place] [phone] Scheduled Orders Name Type Priority Associated Diagnoses Orde r Schedule Bacterial Vaginosis Panel Microbiology Routine Vaginal discharge Ordered: 02/17/2025 Chlamydia/N. Gonorrhoeae RNA, TMA, Vaginal Microbiology Routine Vaginal discharge Ordered: 02/17/2025 documented as of this encounter Procedures Procedure Name Priority Date/Time Associated Diagnosis Comments POCT URINALYSIS DIPSTICK Routine 02/17/2025 10:52 AM EDT Vaginal discharge documented in this encounter Results * POCT urinalysis dipstick manually resulted (02/17/2025 10:52 AM EDT) Color, UA Yellow Clarity, UA Clear Glucose, UA Negative Bilirubin, UA Negative Ketones, UA Negative Spec Grav, UA 1.015 Blood, UA Negative Negative, None Detected pH, UA 7.0 Protein, UA Negative Urobilinogen, UA 0.2 Leukocytes, UA Negative Negative, Rare, Trace Nitrite, UA Negative Negative, None Detected Urine 02/17/2025 10:5 2 AM EDT us Darling Johnston MD POINT OF CARE TEST EN TER/EDIT ORDERABLES Final Result documented in this encounter Visit Diagnoses Diagnosis Vaginal discharge Leukorrhea, not specified as infective documented in this encounter Additional Health Concerns Assessment Noted Time PHQ-9 Depression Total Score: 19 024 11:31 AM EST documented as of this encounter Care Teams Tank Crewmember Relationship Specialty Start Date End Date Darling Reyes MD [address] [place] [phone] PCP - General Family Medicine 02/10/18 documented as of this encounter
--- OUTSIDE RECORDS SUMMARY | 2025-02-17 16:05 | XMS_ITS | Clinical Summary ---
Author Organization [employer] Address [address] [place] [address] 7[address] [place] [address] Care Team Providers Care Shale Planer Operator Name Role Phone Darling Reyes MD [...] cap. 16 g 3 025 2025 Active fluconazole (Diflucan) 150 MG tabletIndicatio ns:Vaginal discharge Take one tablet today then after 72 hrs take another tablet 2 tablet Active loratadine (Claritin) 10 MG tabletIndicatio ns:Viral [...] done Vaginal discharge 08/31/2023 Assessment & Plan (02/17/2025 11:43 AM EDT): I we will treat her empirically for yeast infection with fluconazole 150 mg today and then after 72 hours another tablet BV and CG ordered today patient will be contacted with results Assessment & Plan (04/04/2024 11:28 AM EST): [...] Behavioral Health Integration Plan Follow up with [facility]. Madeline agrees to f/u for OP therapy. [...] for support PLAN: 1. Follow up with [facility]: Not recommended for follow-up 2. Patient goal [...] AM EST): I advise to come to [facility] for evaluation and testing Drink plenty of fluids and rest Encounters * This document contains information received from the source organization and may not represent a complete record from that organization. Date Type Department Care Team Description 02/17/2025 10:40 AM EDT Office Visit [facility] [address] [place] [phone] Darling Reyes MD Vaginal discharge 02/17/2025 Travel 02/16/2025 Telephone [facility] MEDICINE [address] [place] [phone] Darling Reyes MD Nurse Triage 02/09/2025 Telephone [facility] MED & PEDS [address] [place] [address] Darling Reyes MD NOV RECALL 01/31/2025 10:00 AM EDT Office Visit [facility] [address] [place] [phone] Tiara Lloyd DO Pharyngitis, unspecified etiology (Primary Dx); Vaginal itching; Viral upper respiratory tract infection 01/31/[address] [phone] Darling Reyes MD Letter Request (I called the patient to get clarification, on her request for a letter for social security. I reached a voicemail, and left a message asking her to return my call at extension [phone].) 01/31/2025 Travel 01/23/2025 Refill [facility] [address] [place], [place] [phone] Darling Reyes MD Anxiety; Severe episode of recurrent major depressive disorder, without psychotic features (CMS/HCC); Primary insomnia 01/21/[address] [address] Anjali Rodriguez MD Acne vulgaris; Telogen effluvium 01/11/[address] [address] Melissa Lopez, LOAN March recall 01/04/2025 Results Follow-Up [address] [address] Darling Reyes MD Vascular US lower extremity venous insufficiency bilateral 01/02/[address] [address] Olya Cao FNP Results 12/30/[address] [address] Darling Reeys MD Vaginal discharge 12/30/[address] [phone] Darling Reyes MD 12/29/2024 2:30 PM EDT Office Visit [address] [address] Olya Cao FNP Vaginal discharge (Primary Dx); BV (bacterial vaginosis); Noa infection 12/29/2024 Travel 12/29/[address] [address] Darling Reyes MD Nurse Triage 12/05/2024 10:45 AM EDT Office Visit [address] [address] Darling Reyes MD Pain due to varicose veins of both lower extremities; Upper back pain; Nausea; Epigastric pain 12/05/2024 Travel 12/01/[address] [address] Darling Reyes MD Nurse Triage 11/30/2024 10:00 AM EDT Office Visit [address] [address] Melissa Lopez CNM Family planning counseling (Primary Dx) 11/30/2024 Travel 11/29/[address] [address] Melissa Lopez CNM CHART PREP 11/28/[address] [address] Darling Reyes MD Med Refill 11/23/[address] [address] Darling Reyes MD Medication Question from Last [...] (127 lb) 02/17/2025 10:40 AM EDT Height 162.6 cm (5' 4 ) 12/29/2024 2:29 PM EDT Body Mass Index 21.8 12/29/2024 2:29 PM EDT Plan of Treatment Upcoming Encounters Date Type Department Care Team (Late st Contact Info) Description 03/02/2025 9:30 AM EDT Office Visit [facility] MED[facility] [address] [place], [place] [phone] Melissa Lopez, [place] [address] [place], [place] [phone] 05/04/2025 10:15 AM EST Office Visit [facility] [address] [place], [place] [phone] Darling Reyes MD [address] [place], [place] [phone] Health Maintenance Due Date Last Done Comments Disability Screening 1993 Alcohol/Substance Use Screening 2005 HPV Vaccines (1 - 3-dose series) 2008 Hepatitis B Vaccines (1 of 3 - 19+ 3-dose series) 2012 HPV/Cotest 10/15/2023 SDOH Screening 08/19/2024 08/20/2023 Depression Monitoring 10/02/2024 04/04/2024 , 04/04/2024 COVID-19 Vaccine (3 - 2024-2 6 season) 2025 01/24/2021, 01/04/2021 Influenza Vaccine [...] Routine 02/17/2025 10:52 AM EDT Vaginal discharge CULTURE, URINE, ROUTINE Routine 01/31/2025 11:35 AM EDT Pharyngitis, unspecified etiology CHLAMYDIA/N. GONORRHOEAE RNA, TMA, UROGENITAL Routine 01/31/2025 11:35 AM EDT Vaginal itching BACTERIAL VAGINOSIS PANEL Routine 01/31/2025 11:35 AM EDT Vaginal itching POCT INFLUENZA B (ID NOW RAPID MOLECULAR) [...] Relevant to Health Maintenance Results * POCT urinalysis dipstick manually resulted (02/17/2025 10:52 AM EDT) Only the most recent of3 resultswithin the time period is included. Color, [...] TEST EN TER/EDIT ORDERABLES Final Result * Bacterial Vaginosis Panel (01/31/2025 11:35 AM EDT) Only the most recent of2 resultswithin the time period is included. Pathologist [facility] TRICHOMONAS VAGINALIS DETECTION BY PCR NOT DETECTED Not Detect [facility] BACTERIAL VAGINOSIS DETECTION BY PCR NEGATIVE Negative [facility] Comment:The BV organism targ ets [...] of 14. NOA GROUP DETECTION BY PCR NOT DETECTED Not Detect [facility] Noa glab krusei PCR NOT DETECTED Not Detect [facility] Swab Vaginal structure / Unknown 01/31/2025 11:35 AM EDT 01/31/2025 5:51 PM EDT us Tiara Lloyd DO LAB MICROBIOLOGY - GENERAL O RDERABLES Final Result [facility] [address] [place] [phone] * Chlamydia/N. Gonorrhoeae RNA, TMA, Vaginal (01/31/2025 11:35 AM EDT) Pathologist [facility] CT PCR NOT DETECTED Not Detect. [facility] Comment:A not detected test result does not exclude the possibilityof infection because test results can be affected byimproper specimen collection, concurrent antibiotic therapy,or the number of organisms in the specimen which may bebelow the sensitivity of the test. As with many diagnostictests, results from the Xpert CT/NG assay should beinterpreted in conjunction with other laboratory andclinical data available to the clinician.Xpert CT/NG performance has not been evaluated in patientsless than 14 years of age. The assay should not be used forthe evaluationof suspected sexual abuse or for other medico-legalindications. Additional testing is recommended in anycircumstance when false positive or false negative resultscould lead to adverse medical, social or psychologicalconsequences. NG PCR NOT DETECTED Not Detect. [facility] Comment:A not detected test result does not exclude the possibilityof infection because test results can be affected byimproper specimen collection, concurrent antibiotic therapy,or the number of organisms in the specimen which may bebelow the sensitivity of the test. As with many diagnostictests, results from the Xpert CT/NG assay should beinterpreted in conjunction with other laboratory andclinical data available to the clinician.Xpert CT/NG performance has not been evaluated in patientsless than 14 years of age. The assay should not be used forthe evaluationof suspected sexual abuse or for other medico-legalindications. Additional testing is recommended in anycircumstance when false positive or false negative resultscould lead to adverse medical, social or psychologicalconsequences. Swab (Vaginal Swab) 01/31/2025 11:35 AM EDT 01/31/2025 5:51 PM EDT Tiara Lloyd DO LAB MICROBIOLOGY - GENERAL O RDERABLES Final Result Performing Organization Address [facility] Co de Phone Number [facility] [address] [place] [phone] * Culture, Urine, Routine (01/31/2025 11:35 AM EDT) Only the most recent of2 resultswithin the time period is included. Urine Urine specimen obtained by clean catch procedure / Unknown 01/31/2025 11:35 AM EDT 01/31/2025 5:51 PM EDT Comment:UACC Narrative [facility] - 02/02/2025 11:47 AM EDT Urine Culture Report Result Urine Culture 50,000 to 100,000 cfu/ml Urine Culture Mixed bacterial jhoan characteristic of Urine Culture urogenital contamination. Specimen Source: Urine clean catch Tiara Lloyd DO LAB MICROBIOLOGY - GENERAL O RDERABLES Final Result Performing Organization Address [facility]/State/ZIP Co de Phone Number [facility] [address] [place] [phone] * Influenza B (ID NOW Rapid Molecular) (01/31/2025 10:50 AM EDT) [facility] Influenza B Negative Negative, Indeterminate [facility] Swab 01/31/2025 10:5 0 AM EDT Tiara Lloyd DO POINT OF CARE TEST ENTER/MELODIE T ORDERABLES Final Result Performing Organization Address [facility] Co de Phone Number [facility] [address] [place] [phone] * Influenza A (ID NOW Rapid Molecular) (01/31/2025 10:50 AM EDT) [facility] Influenza A Negative Negative, Indeterminate [facility] Swab 01/31/2025 10:5 0 AM EDT us Tiara Lloyd DO POINT OF CARE TEST ENTER/MELODIE T ORDERABLES Final Result Performing Organization Address [facility] Co de Phone Number [facility] [address] [place] [phone] * POCT rapid strep A manually resulted (01/31/2025 10:31 AM EDT) [facility] Rapid Strep A Screen Negative Negative, None Detected Swab 01/31/2025 10:3 1 AM EDT us Tiara Lloyd DO POINT OF CARE TEST ENTER/MELODIE T ORDERABLES Final Result * POCT Rapid COVID Ag (01/31/2025 10:27 AM EDT) [facility] Rapid COVID Ag Negative Swab 01/31/2025 10:2 7 AM EDT us Tiara Lloyd DO POINT OF CARE TEST ENTER/MELODIE T ORDERABLES Final Result * Vascular US lower extremity venous insufficiency bilateral (01/03/2025 1:10 PM EDT) 01/03/2025 1:10 PM EDT Narrative [facility] - 01/03/2025 1:56 PM EDT [address] [address] Ultrasound Report Signed Patient: Madeline Santizo MR#: [id number] 20 : 1995 Acct:[id number] Age/Sex: 29 / F ADM Date: 01/03/25 Loc: HO.US Attending Dr: Darling Johnston MD Ordering Physician: Darling Reyes MD Date of Service: 01/03/25 Procedure(s): US venous insuf bilat Accession Number(s): [id number] cc: Darling Reyes MD EXAMINATION: US LOWER [...] 01/03/25 1354 DD/ 1310 TD/TT: 01/03/25 1335 Legal Transcriptionist: Procedure Note Donotuseinterpreter, Image - 01/03/[address] [address] Ultrasound Report Signed Patient: Madeline Santizo MMR#: [id number] 20 : 1995Acct:[id number] Age/Sex: 29 FADM Date: 01/03/25 Loc: HO.US Attending Dr: Darling Johnston MD Ordering Physician: Darling Reyes MD Date of Service: 01/03/25 Procedure(s): US venous insuf bilat Accession Number(s): [id number] cc: Darling Reyes MD EXAMINATION: US LOWER [...] 01/03/25 1354 DD/ 1310 TD/TT: 01/03/25 1335 Legal Transcriptionist: Darling Johnston MD CV VASCULAR PROCEDURE S Edited Result - Final [facility] [address] [place] [phone] * (ABNORMAL) POCT [place]/SHARMILA (12/29/2024 2:45 AM EDT) Pathologist [facility] SHARMILA Prep Comment:positive Vaginal Fluid Vaginal structure / Unknown 12/29/2024 2:45 AM EDT Olyatavo Cao TEACHER'S AIDE POINT OF CARE TEST ENTER/EDIT ORDERABLES Final Result * POCT Urine (12/05/2024 11:44 AM EDT) Preg Test, Ur Negative Negative, Indeterminate, None Detected, Invalid, Specimen unsatisfactory for evaluation, Weakly Positive, 2+ QC Media Lot # [id number] Lot# Expiration Date ,026 QC TEST , Urine 12/05/2024 11:4 4 AM EDT Darling Johnston MD POINT OF CARE TEST EN TER/EDIT ORDERABLES Final Result * Pap Smear (11/13/2022 1:12 PM EDT) 11/13/2022 1:12 PM EDT 11/14/2022 8:00 AM EDT Narrative [facility] - 12/10/2022 11:35 AM EDT ----- ------- Name: Madeline Santizo Age/Sex: 27/F : 1995 Unit#: [id number] Attend Dr: Sally Alfaro [facility] Re11/13/22 Status: DEP REF Location: [facility] Disch: ----- ------- SPEC : [id number] RECD: 11/14/22 STATUS: JOVITA KAPADIAJazmyn NUM: [id number] NAVYA: 11/13/22-[address] [facility] [address]: Sally Alfaro [facility] ENTERED: 11/14/22 SP TYPE: Pap Smr OTHR DR: Darling Reyes MD ORDERED: Pap Smear Interpretation Satisfactory for evaluation. Negative for intraepithelial lesion or malignancy. Clinical Information LMP: 10/13/22 (approximately) Previous PAP test: 12/28/17, ASCUS Material Received ThinPrep-Cervical Copies To: Darling Reyes MD [address] [place] [phone] Sally Alfaro [address] Barber [address] [place] [phone] ----- ------- Signed (signature on file) Angelique TRAVIS Rodriguez ([facility]) 12/10/22 1135 ----- ------- END OF REPORT [facility] External Provider LAB CYT OLRUTHY ORDERABLES Final Result Performing Organization Address [facility] Co de Phone Number [facility] [address] [place] [address] [phone] * HEPATITIS C AB W/REFL TO HCV RNA, QN, PCR (06/27/2021 11:08 AM EST) HEPATITIS C ANTIBODY NON-REACT LYLA NON-REACT LYLA [facility] INDEX 0.01 <1.00 [facility] Comment: HCV antibody was non-reactive. There is no laboratory evidence of HCV infection. In most cases, no further action is required. However, if recent HCV exposure is suspected, a test for HCV RNA (test code 77169) is suggested. For additional information please refer to http://education.[employer]/faq/DVI44r9 (This link is being provided for informational/ educational purposes only.) 06/27/2021 11:0 8 AM EST Darling Johnston MD HISTORICAL/NON ORDERA BLE LABS Final Result Performing Organization Address [facility]/ZIP Co de Phone Number [facility] [address] [place] [address], * HIV 1/2 ANTIGEN/ANTIBODY,FOURTH GENERATION W/RFL (06/27/2021 [...] purpose. For additional information please refer to http://education.[employer]/faq/RSC622 (This link is being provided for informational/ educational purposes only.) The performance of this assay has not been clinically validated in patients less than 2 years old. 06/27/2021 11:0 8 AM EST Darling Johnston MD LAB BLOOD ORDERABLES Final Result [facility] [address] from Last 3 Months or Most Recently Relevant to Health Maintenance Insurance C3 Care Teams Shale Planer Operator Relationship Specialty Start Date End Date Darling Reyes MD [address] [place] [phone] PCP - General Family Medicine 02/10/18
--- OUTSIDE RECORDS SUMMARY | 2025-02-17 16:06 | XMS_ITS | Encounter Summary ---
Author Organization [employer] Address [address] [place] [address] 7t [place] [address] Care Team Providers Care Trainman Name Role Phone Darling Reyes MD Primary Care Provide r Encounter Details Date Type Department Care Team (Latest Contact Info) Description 02/17/2025 Travel Social History Tobacco Use Types Packs/Day [...] Description 03/02/2025 9:30 AM EDT Office Visit [facility] [address] [place] [phone] Melissa Lopez CNM [address] [place] [address] 05/04/2025 10:15 AM EST Office Visit [address] [address] Darling Reyes MD [address] [place] [phone] documented as of this encounter Visit Diagnoses Not on filedocumented in this encounter Additional Health Concerns Assessment Noted Time PHQ-9 Depression Total Score: 19 024 11:31 AM EST documented as of this encounter Care Teams Trainman Relationship Specialty Start Date End Date Darling Reyes MD [address] [place] [address] [phone] PCP - General Family Medicine 02/10/18 documented as of this encounter
--- OUTSIDE RECORDS SUMMARY | 2025-02-17 16:06 | XMS_ITS | Clinical Summary ---
Author Organization [facility] Address [address] [phone] Care Team Providers Care Web Content & Social Media Manager Name Role Phone Gisell Cedeno Primary Care Provider [phone] Allergies No known active allergies Medications No [...] this topic Insurance /FREE CARE Care Teams Web Content & Social Media Manager Relationship Specialty Start Date End Date Gisell Cedeno [address] [place], [place] [address] PCP - General Internal Medicine 04/21/18
--- OUTSIDE RECORDS SUMMARY | 2025-02-17 16:06 | XMS_ITS | Encounter Summary ---
Author Organization [employer] Address [address] [place] [address] 7 [place] [address] Care Team Providers Care Pairer Inspector Name Role Phone Darling Reyes MD Primary Care Provide r Reason for Visit * Reason Onset Date Comments Med Refill 11/28/2024 Encounter Details Date Type Department Care Team ([facility] st Contact Info) Description 11/28/2024 Telephone [facility] [address] [place], [place] [phone] Darling Reyes MD [address] [place], [place] [phone] Med Refill Social History Tobacco Use Types [...] 100 MG tablet To be sent to: [facility] - [place], [place] - [address] [place] [address] documented in this encounter Plan of Treatment Upcoming Encounters Date Type Department Care Team ([facility] st Contact Info) Description 03/02/2025 9:30 AM EDT Office Visit [facility] [address] [place] [phone] Melissa Lopez CNM [address] [place] [address] 05/04/2025 10:15 AM EST Office Visit [facility] [address] [place] [address] Darling Reyes MD [address] [place] [address] documented as of this encounter Visit Diagnoses Not on filedocumented in this encounter Additional Health Concerns Assessment Noted Time PHQ-9 Depression Total Score: 19 024 11:31 AM EST documented as of this encounter Care Teams Pairer Inspector Relationship Specialty Start Date End Date Darling Reyes MD [address] [place] [address] PCP - General Family Medicine 02/10/18 documented as of this encounter
--- OUTSIDE RECORDS SUMMARY | 2025-02-17 16:06 | XMS_ITS | Encounter Summary ---
Author Organization [employer] Address [address] [place] [address] 7t [place] [address] Care Team Providers Care Director Market Research Name Role Phone Darling Reyes MD Primary Care Provide r Reason for Visit * Reason Onset Date Comments Nurse Triage 02/16/2025 Encounter Details Date Type Department Care Team ([facility] st Contact Info) Description 02/16/2025 Telephone [facility] [address] [place], [place] [phone] Darling Reyes MD [address] [place], [place] [phone] Nurse Triage Social History Tobacco Use Types [...] Telephone Encounter - Merlyn Winters RN - 02/16/2025 10:22 AM EDT Called pt. Via S engineering geologist Michele [phone]. Pt. States that she has been having vaginal itching andalso clear discharge. Pt. Is unsure if she has an STI due to itching. Pt. Declines appt. Today. [facility] in hours have been provided to pt. Protocol Used: Vaginal Discharge (Adult) Protocol-Based Disposition: See in Office or Video Visit Today Positive Triage Questions: * Patient wants to be seen * Symptoms of a yeast infection (i.e., itchy, white discharge, not bad smelling) and not improved > 3 days following Care Advice * Patient is worried they have a sexually transmitted infection (STI) * All higher-acuity triage questions were negative Care Advice Discussed: * Genital Hygiene * Telephone Encounter - Alma Gomez - 02/16/2025 9:00 AM EDT Symptoms: Vaginal Symptoms - Not Bleeding, Itching - No Rash Outcome: Schedule an urgent appointment (within 4 hours) or talk to a nurse or provider soon Reason: Severe itching now The caller accepted this outcome. Contact pt at [phone] Need engineering geologist documented in this encounter Plan of Treatment Upcoming Encounters Date Type Department Care Team (Late st Contact Info) Description 03/02/2025 9:30 AM EDT Office Visit [facility] [address] [place] [address] Melissa Lopez CNM [address] [place] [address] 05/04/2025 10:15 AM EST Office Visit [facility] [address] [place] [address] Darling Reyes MD [address] [place], [place] [phone] documented as of this encounter Visit Diagnoses Not on filedocumented in this encounter Additional Health Concerns Assessment Noted Time PHQ-9 Depression Total Score: 19 024 11:31 AM EST documented as of this encounter Care Teams Director Market Research Relationship Specialty Start Date End Date Darling Reyes MD [address] [place] [address] [phone] PCP - General Family Medicine 02/10/18 documented as of this encounter
--- OUTSIDE RECORDS SUMMARY | 2025-02-17 16:06 | XMS_ITS | Encounter Summary ---
Author Organization [employer] Address [address] [facility] 7t [place] [address] Care Team Providers Care Beater Operator Name Role Phone Darling Reyes MD Primary Care Provide r Encounter Details Date Type Department Care Team ([facility] st Contact Info) Description 08/28/2024 Orders Only [facility] [address] [place] [address] [phone] George Knapp MD [address] [place], [place] [phone] Dysuria (Primary Dx) Social History Tobacco Use [...] Description 03/02/2025 9:30 AM EDT Office Visit [facility] [address] [place] [phone] Melissa Lopez [address] [address] 05/04/2025 10:15 AM EST Office Visit [address] [address] Darling Reyes MD [address] [place] [phone] documented as of this encounter Procedures Procedure Name Priority Date/Time Associated Diagnosis Comments CULTURE, URINE, ROUTINE Routine 08/29/2024 12:00 AM EDT Dysuria documented in this encounter Results * Culture, Urine, Routine (08/29/2024 12:00 AM EDT) Urine Urine specimen obtained by clean catch procedure / Unknown 08/29/2024 08/29/2024 Comment:[facility] - 08/31/2024 11:03 AM EDT Urine Culture No growth. Specimen Source: Urine clean catch us George Knapp MD LAB MICROBIOLOGY - GENERAL ORDER JACK Final Result [facility] [address] [place] [phone] [phone] documented in this encounter Visit Diagnoses Diagnosis Dysuria- Primary documented in this encounter Additional Health Concerns Assessment Noted Time PHQ-9 Depression Total Score: 19 024 11:31 AM EST documented as of this encounter Care Teams Beater Operator Relationship Specialty Start Date End Date Darling Reyes MD [address] [place] [phone] PCP - General Family Medicine 02/10/18 documented as of this encounter
--- OUTSIDE RECORDS SUMMARY | 2025-02-17 16:06 | XMS_ITS | Clinical Summary ---
Author Organization [facility] Address [address] [place] [address] Care Team Providers Care Case Management Assistant Name Role Phone Unavailable Primary Care Provider [...] capsule Take 50 mcg by mouth daily. 3 Active docusate sodium (COLACE) 100 mg capsule Take 100 mg by mouth 2 (two) times daily. 4 Active SLYND 4 mg (28) tab Take 1 Tablet by mouth daily. 5 Active famotidine (PEPCID) 20 mg tablet Take 20 mg by mouth 2 (two) times daily. Active fluconazole (DIFLUCAN) 150 mg tablet Take 150 mg by mouth 1 (one) time. 5 Active levonorgestreL (PLAN B) 1.5 mg tablet Take 1.5 mg by mouth once. 4 Active loratadine (CLARITIN) 10 mg tablet Take 10 mg by mouth daily. 4 Active metroNIDAZOLE (METROGEL) 0.75 % (37.5mg/5 gram) vaginal gel Place 1 Applicator vaginally nightly at bedtime. Active metroNIDAZOLE (FLAGYL) 500 mg tablet Take 500 mg by mouth 2 (two) times daily. Active nitrofurantoin, macrocrystal-monoh ydrate, (MACROBID) 100 mg capsule Take 100 mg by mouth 2 (two) times daily. Active ondansetron ODT (ZOFRAN-ODT) 4 mg disintegrating tablet Take 4 mg by mouth 3 (three) times daily as needed. Active polyethylene glycol, PEG, 3350 (GLYCOLAX) 17 gram/dose powder Take 17 g by mouth once daily. Active STOOL SOFTENER-STIMULANT LAXAT 8.6-50 mg per tablet Take 1 Tablet by mouth once daily. Active busPIRone (BUSPAR) 10 mg tablet Take 1 Tablet by mouth 2 (two) times daily for 30 days. 60 Tablet Active sertraline 200 mg capIndications:thelma or depressive disorder Take 200 mg by mouth once daily for 30 days Indications: major depressive disorder. 30 Capsule Active hydrOXYzine HCL (ATARAX) 25 mg tablet Take 1 Tablet by mouth 3 (three) times daily as needed for anxiety for up to 30 days. 90 Tablet Active QUEtiapine (SEROQUEL) 50 mg tablet Take 1 Tablet by mouth nightly at bedtime for 30 days. 30 Tablet 5 Active Active Problems Problem Noted Date Diagnosed Date Chronic idiopathic thrombocytopenic purpura ([facility]) 01/12/2025 Overview (01/12/2025): Per CIS note Dengue 01/12/2025 GBS carrier 01/12/2025 ([facility]) 01/12/2025 Epigastric pain 12/05/2024 Pain due [...] low back pain without sciatica 0 10/06/2023 Nausea 08/31/2023 Vaginal discharge 08/31/2023 Other constipation 05/19/2023 Anxiety 03/18/2023 Severe episode of recurrent major depressive disorder, without psychotic features ([facility]) 03/18/2023 Overview (01/19/2025): The primary clinical [...] Problem Noted Date Diagnosed Date Resolved Date Dysuria 08/31/2023 02/13/2025 Encounters Date Type Department Care Team Description 01/12/2025 1:00 PM EDT Behavioral Health Visit [facility] [address] [place] [phone] Jazz Gutierrez APRN from Last 3 Months [...] Care Team (Late st Contact Info) Description 03/21/2025 1:00 PM EDT Behavioral Health Visit [facility] [address] [place] [phone] Jazz Gutierrez APRN [address] [facility] [place], [place] [address] Health Maintenance Due Date Last Done Comments Anxiety Screening 1993 Depression Monitoring 1993 HPV Screening 1993 Hepatitis C Screening 1993 Pap + HPV 1993 Tobacco Screening 1993 Relationship Safety Screening/Counseling 2008 Hypertension Screening (#1) 10/15/2011 Imm-Hepatitis B (1 of 3 - 19 + 3-dose series) 2012 Cervical Cancer Screening 2014 Pap Smear 2014 Imm-HPV (1 - 3-dose SCDM series) 2020 Alcohol and Drug Screen 06/01/2024 [id number] () 01/30/2025 Imm-Influenza (#1) 2025 08/23/2020, 02/23/2018 Imm-DTaP/Tdap/Td (3 - Td or Tdap) 10/18/2030 021, 05/17/2018 HIV Screening Completed 06/27/2021, 06/27/2021 Cervical Ablation/Cold-Knife Conization Discontinued Cervical Cryotherapy Discontinued Colposcopy Discontinued Endometrial Biopsy Discontinued Excision/Leep Discontinued HPV Genotyping Discontinued Vaginal Pap Discontinued Vulvoscopy Discontinued Insurance [facility]
--- OUTSIDE RECORDS SUMMARY | 2025-02-17 16:06 | XMS_ITS | Encounter Summary ---
Author Organization [employer] Address [address] [facility] 7t [place] [address] Care Team Providers Care Asset Card Clerk Name Role Phone Darling Reyes MD Primary Care Provide r Encounter Details Date Type Department Care Team (Latest Contact Info) Description 01/04/2025 Results Follow-Up [facility] [address] [place], [place] [phone] Darling Reyes MD [address] [place] [address] Vascular US lower extremity venous insufficiency bilateral [...] 9:30 AM EDT Office Visit [facility] [address] [place] [phone] Melissa Lopez CNM [address] [place] [phone] 05/04/2025 10:15 AM EST Office Visit [address] [address] Darling Reyes MD [address] [place] [phone] documented as of this encounter Visit Diagnoses Not on filedocumented in this encounter Additional Health Concerns Assessment Noted Time PHQ-9 Depression Total Score: 19 024 11:31 AM EST documented as of this encounter Care Teams Asset Card Clerk Relationship Specialty Start Date End Date Darling Reyes MD [address] [place] [address] [phone] PCP - General Family Medicine 02/10/18 documented as of this encounter
--- OUTSIDE RECORDS SUMMARY | 2025-02-17 16:06 | XMS_ITS | Encounter Summary ---
Author Organization [employer] Address [address] [facility] 7t [place] [address] Care Team Providers Care Steel Inspector Name Role Phone Darling Reyes MD Primary Care Provide r Encounter Details Date Type Department Care Team ([facility] st Contact Info) Description 08/03/2023 Orders Only [facility] [address] [place], [place] [phone] Darling Reyes MD 230 [place], [place] [phone] Social History Tobacco Use Types Packs/Day Years [...] AM EDT Office Visit [facility] [address] [place] [address] Melissa Lopez CNM [address] [place] [phone] 05/04/2025 10:15 AM EST Office Visit [facility] [address] [place] [phone] Darling Reyes MD [address] [place] [phone] documented as of this encounter Visit Diagnoses Not on filedocumented in this encounter Additional Health Concerns Assessment Noted Time PHQ-9 Depression Total Score: 10 023 10:15 AM EST documented as of this encounter Care Teams Steel Inspector Relationship Specialty Start Date End Date Darling Reyes MD [address] [place] [address] [phone] PCP - General Family Medicine 02/10/18 documented as of this encounter
[2025-02-17 21:14] LABS: Bacterial Vaginosis PCR NEGATIVE (Negative); Candida Group PCR DETECTED (Not Detect); Candida glab krusei PCR NOT DETECTED (Not Detect); Trichomonas vaginalis PCR NOT DETECTED (Not Detect)
[2025-02-17 21:52] LABS: CT PCR NOT DETECTED (Not Detect.); NG PCR NOT DETECTED (Not Detect.)
== END 2025-02-17 11:00 | disposition home or self-care (01) ==
LOC: HO.HHCLNP 10:59
PROVIDERS: Visit Provider Internal Medicine
DX: N89.8 Other specified noninflammatory disorders of vagina (principal)
CPT/HCPCS: 81515; 87491; 87591

== ENCOUNTER 2025-03-01 10:31 | Outpatient (AMB) | payer MEDICAID, SELFPAY ==
--- NOTE | 2025-03-01 10:44 | MHC.OFFVIS ---
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 She is not having any problems her periods did not come yet in January today is March 01 she thinks her last period was around January 20 sometimes her period has been little bit more irregular lately. She was on control pills but decided not to take them see the last note and she decided on getting a Nexplanon at that time and she said she did sign the paper for it but there were not appointments in the couple of months following and then this CNM has been out on medical leave in so she said there was nothing available. She thinks she would still be interested in the Nexplanon she does have sex and does not use control. She would rather not have a baby right now she says there is a lot of family stress. When she does get her platelets go down but that is the only time and she says they are fine right now her primary care doctor is Dr. Kuhn in the [facility]. [facility] Medical History Hx of thrombocytopenia History of hypothyroidism No known health problems Family History Maternal Grandmother Breast CA Social History Patient Tobacco Use Status: Never used Tobacco Female Reproductive History Menstrual Age of Menarche: 14 Date of last menstrual period: 01/20/25 control method: none Total pregnancies: 2 Full term: 2 Date of last pap smear: 11/24/23 (negative,2022,negative) History of abnormal pap smear: Yes ( ASCUS) Physical Exam Vital Signs: Last Vital Signs BP 118/66 03/01/25 10:48 BMI result Body Mass Index 21.1 Const General: healthy appearing, comfortable, no acute distress, well developed and alert Nutritional Appearance: average body habitus and thin (21.1) Orientation/consciousness: patient oriented x3 Limitations: no limitations HEENT Head: Yes normocephalic Neck Neck: Yes normal visual inspection Chest Chest palpation & inspection: normal inspection of the chest Breast/axilla inspection: normal inspection of the breasts and normal inspection of the axillae Breast/axilla palpation: normal palpation of the breasts and normal palpation of the axillae Resp Effort & Inspection: normal respiratory effort GI Inspection: Yes normal to inspection, No Abdominal wall edema and No distended Palpation (GI): Soft to palpation and nontender Other: Vagina pink and moist cervix multiparous pink smooth healthy appearing normal scant clear mucus no organomegaly, nontender on exam very good tone with Kegel. General: Yes bladder normal to palpation External Female Exam: normal external appearance and normal appearance of the urethra Speculum Exam - Vagina: normal appearance of the vagina, normal palpation and normal vaginal discharge Speculum Exam - Cervix: normal appearance of the cervix, normal palpation and nontender Bimanual exam- vagina & uterus: normal bimanual exam, normal palpation, uterine size normal, bladder normal to palpation, consistency normal, normal palpation, uterine mobility normal, uterine shape normal, No Cervical tenderness present, non-tender and no cervical motion tenderness Bimanual Exam- Adnexa, other: normal adnexae, no masses, normal and No adnexal tenderness Neuro General: patient oriented x3 Assessment & Plan Assessment & Plan (1) Family planning: Comment: 03/01/2025 says she is still interested in getting a Nexplanon and we discussed side effects she will call with menses... Code(s): Z30.09 - Encounter for other general counseling and advice on contraception Category: Social Hx (2) Hx of thrombocytopenia: Comment: Severe during her pregnancies required IV steroids... Code(s): Z86.2 - Personal history of diseases of the blood and blood-forming organs and certain disorders involving the immune mechanism Category: Medical (3) Well woman exam with routine gynecological exam: Code(s): Z01.419 - Encounter for gynecological examination (general) (routine) without abnormal findings Category: Medical (4) Hx of abnormal cervical Pap smear: Comment: hx of ASCUS in last preg, 11/13/22 pap= neg; 11/24/2023 Pap is negative however HPV is still pending.; 12/01/2023 HPV co testing has been reordered...= Negative. Code(s): Z87.42 - Personal history of other diseases of the female genital tract Category: Medical (5) Anxiety: Comment: Is given pills for sleeping but does not want to take them was given a referral for therapy, but has changed her number and needs to double check with [facility] about referral & supply her new phone number.... 03/01/2025 now so she is has a therapist and psychiatrist and the medications she is on are helping. Code(s): F41.9 - Anxiety disorder, unspecified Category: Medical Plan -----Discussed in this visit the following: healthy balanced diet, regular and consistent exercise, getting recommended health screens, doing the best she can for her particular health concerns, kegel exercises, pap smear screening and followup recommendations, mammography screening and SBE, normal changes in cycles in her life stage--- . Discussed the stressors in her life and what things help her she says talking with her psychiatrist and therapist helps and the meds help to she does have lots of stress with family members what she did not get into its specifically she says her mother does have diabetes and has lots of health problems. Her children are 4 and 6.. She says she is in good health right now she does have her primary care provider and her platelets have been fine and only go very low when she is She says she is still is interested in getting the Nexplanon and did have some questions about side effects which I discussed Discussed the irregular menses have a lot to do with stress and also with being either underweight or overweight and she is closer to the low end of the spectrum. Patient to call when she gets her period and we will attempt to schedule insertion if she desires it. Testing was done for STIs along with the visit. She did not want any other blood tests. She did ask if we will call with the results and I said only if there was a positive but she says she is on the portal and I told her results would be on that. Coding Level of Care Code Est Pt Prev Care [id number]([id number]) Diagnoses Family planning Z30.09 Hx of thrombocytopenia Z86.2 Well woman exam with routine gynecological exam Z01.419 Hx of abnormal cervical Pap smear Z87.42 Anxiety F41.9
[2025-03-01 10:48] VITALS: BP 118/66; BMI 21.1
--- OUTSIDE RECORDS SUMMARY | 2025-03-01 12:06 | XMS_ITS | Clinical Summary ---
Author Organization [facility] Address [address] [place] [address] Care Team Providers Care Scalemaker Name Role Phone Unavailable Primary Care Provider [...] days Indications: major depressive disorder. 30 Capsule 5 Active hydrOXYzine HCL (ATARAX) 25 mg tablet Take 1 Tablet by mouth 3 (three) times daily as needed for anxiety for up to 30 days. 90 Tablet 5 Active QUEtiapine (SEROQUEL) 50 mg tablet Take 1 Tablet by mouth nightly at bedtime for 30 days. 30 Tablet 5 Active Active Problems Problem Noted Date Diagnosed Date Chronic idiopathic thrombocytopenic purpura 12/30 Overview (01/12/2025): Per CIS note Dengue 01/12/2025 GBS carrier 01/12/2025 01/12/2025 Epigastric pain 12/05/2024 Pain due to [...] major depressive disorder, without psychotic features 03/18/2023 Overview (01/19/2025): The primary clinical decision [...] EDT Behavioral Health Visit [facility] [address] [place] [phone] Jazz Gutierrez APRN from Last 3 Months [...] Upcoming Encounters Date Type Department Care Team ([facility] st Contact Info) Description 03/21/2025 1:00 PM EDT Behavioral Health Visit [facility] [address] [place] [phone] Jazz Gutierrez APRN [address] [facility] [place] [address] Health Maintenance Due Date Last Done Comments [...] series) 2020 Alcohol and Drug Screen 06/01/2024 [id number] ( - season) 2025 Imm-Influenza (#1) 2025 08/23/2020, 02/23/2018 Imm-DTaP/Tdap/Td (3 - Td or Tdap) 10/18/2030 021, 05/17/2018 HIV Screening Completed 06/27/2021, 06/27/2021 Cervical Ablation/Cold-Knife Conization Discontinued Cervical Cryotherapy Discontinued Colposcopy Discontinued Endometrial Biopsy Discontinued Excision/Leep Discontinued HPV Genotyping Discontinued Vaginal Pap Discontinued Vulvoscopy Discontinued Insurance [facility]
--- OUTSIDE RECORDS SUMMARY | 2025-03-01 12:06 | XMS_ITS | Clinical Summary ---
Author Organization [employer] Address [address] [place] [address] [address] [place] [address] Care Team Providers Care Public Relations Professional Name Role Phone Darling Reyes MD Primary [...] major depressive disorder, without psychotic features (CMS/HCC) (FORMERLY [facility]),Primary insomnia TAKE 1 TABLET BY MOUTH AT [...] eorder (will not trigger notification to Pharmacy)) acetaminophen (Tylenol) 500 MG tablet Take 2 tablets (1,000 mg) by mouth every 6 (six) hours if needed for moderate pain or fever for up to 25 doses. 50 tablet 025 2024 Discontinued(D ose adjustment) Active Problems Problem Noted Date Diagnosed Date [...] major depressive disorder, without psychotic features (CMS/HCC) 03/18/2023 Assessment & Plan (05/10/2024 11:54 AM [...] Behavioral Health Integration Plan Follow up with [facility]. Madeline agrees to f/u for OP therapy. She reports receiving phone call, but does not recall the name of agency, but will reach out to [facility], as therapist cancelled previous telehealth visit. [...] support PLAN: 1. Follow up with [facility]: Not recommended for follow-up 2. Patient goal [...] AM EST): I advise to come to [facility] for evaluation and testing Drink plenty of fluids and rest Encounters * This document contains information received from the source organization and may not represent a complete record from that organization. Date Type Department Care Team Description 02/17/2025 10:40 AM EDT Office Visit [facility] [address] [place] [phone] Darling Reyes MD Vaginal discharge 02/17/2025 Travel 02/16/2025 Telephone [facility] MEDICINE [address] [place] [address] Darling Reyes MD Nurse Triage 02/09/2025 Telephone [facility] [address] [place], [place] [phone] Darling Reyes MD NOV RECALL 01/31/2025 10:00 AM EDT Office Visit [facility] WALK-IN [address] [address] Tiara Lloyd DO Pharyngitis, unspecified etiology (Primary Dx); Vaginal itching; Viral upper respiratory tract infection 01/31/2025 Telephone [facility] MED[facility] [address] [place] [phone] Darling Reyes MD Letter Request (I called the patient to get clarification, on her request for a letter for social security. I reached a voicemail, and left a message asking her to return my call at extension [phone].) 01/31/2025 Travel 01/23/2025 Refill [facility] [address] [place] [address] Darling Reyes MD Anxiety; Severe episode of recurrent major depressive disorder, without psychotic features (CMS/HCC); Primary insomnia 01/21/2025 Refill [facility] [address] [place] [address] Anjali Rodriguez MD Acne vulgaris; Telogen effluvium 01/11/[address] [address] Melissa Lopez CNM March01/04/2025 Results Follow-Up [address] [place] [address] Darling Reyes MD Vascular US lower extremity venous insufficiency bilateral 01/02/[address] [address] Olya Cao FNP Results 12/30/[address] [address] Darling Reyes MD Vaginal discharge 12/30/[address] [address] Darling Reyes MD 12/29/2024 2:30 PM EDT Office Visit [address] [address] Olya Cao FNP Vaginal discharge (Primary Dx); BV (bacterial vaginosis); Noa infection 12/29/2024 Travel 12/29/[address] [address] Darling Reyes MD Nurse Triage 12/05/2024 10:45 AM EDT Office Visit [address] [address] Darling Reyes MD Pain due to varicose veins of both lower extremities; Upper back pain; Nausea; Epigastric pain 12/05/2024 Travel 12/01/[address] [address] Darling Reyes MD Nurse Triage 11/30/2024 10:00 AM EDT Office Visit [address] [address] Melissa Lopez CNM Family planning counseling (Primary Dx) 11/30/2024 Travel 11/29/[address] [address] Melissa Lopez CNM CHART PREP from Last 3 Months Immunizations Immunization Administration [...] is your housing situation today? I have jayjuventino mora 03/16/[address] you [...] Care Team (Late st Contact Info) Description 05/04/2025 10:15 AM EST Office Visit [facility] MEDICINE [address] [place], [place] [phone] Darling Reyes MD [address] [place], [place] [phone] Health Maintenance Due Date Last Done Comments [...] Procedure Name Priority Date/Time Associated Diagnosis Comments CHLAMYDIA/N. GONORRHOEAE RNA, TMA, UROGENITAL Routine 02/17/2025 10:59 AM EDT Vaginal discharge BACTERIAL VAGINOSIS PANEL Routine 02/17/2025 10:59 AM EDT Vaginal discharge POCT URINALYSIS DIPSTICK Routine 02/17/2025 10:52 AM [...] Relevant to Health Maintenance Results * (ABNORMAL) Bacterial Vaginosis Panel (02/17/2025 10:59 AM EDT) Only the most recent of3 resultswithin the time period is included. TRICHOMONAS VAGINALIS DETECTION BY PCR NOT DETECTED Not Detect [facility] BACTERIAL VAGINOSIS DETECTION BY PCR NEGATIVE Negative [facility] Comment:The BV organism targ ets [...] GROUP DETECTION BY PCR DETECTED(A) Not Detect [facility] Noa glab krusei PCR NOT DETECTED Not Detect [facility] Swab Vaginal structure / Unknown 02/17/2025 10:59 AM EDT 02/17/2025 4:02 PM EDT Darling Johnston MD LAB MICROBIOLOGY - [facility] ORDERABLES Final Result [facility] [address] [place] [phone] * Chlamydia/N. Gonorrhoeae RNA, TMA, Vaginal (02/17/2025 10:59 AM EDT) Only the most recent of2 resultswithin the time period is included. CT PCR NOT DETECTED Not Detect. [facility] Comment:A not detected test result [...] psychologicalconsequences. NG PCR NOT DETECTED Not Detect. [facility] Comment:A not detected test result [...] to adverse medical, social or psychologicalconsequences. Swab Vaginal structure / Unknown 02/17/2025 10:59 AM EDT 02/17/2025 4:02 PM EDT Darling Johnston MD LAB MICROBIOLOGY - [facility] ORDERABLES Final Result [facility] [address] [place] [phone] * POCT urinalysis dipstick manually resulted (02/17/2025 [...] Detected Urine 02/17/2025 10:5 2 AM EDT Darling Johnston MD POINT OF CARE TEST EN TER/EDIT ORDERABLES Final Result * Culture, Urine, Routine (01/31/2025 11:35 AM EDT) Only the most recent of2 resultswithin the time period is included. Urine Urine specimen obtained by clean catch procedure / Unknown 01/31/2025 11:35 AM EDT 01/31/2025 5:51 PM EDT Comment:UACC Narrative [facility] - 02/02/2025 11:47 AM EDT Urine Culture Report Result Urine Culture 50,000 to 100,000 cfu/ml Urine Culture Mixed bacterial jhoan characteristic of Urine Culture urogenital contamination. Specimen Source: Urine clean catch us Tiara Lloyd DO LAB MICROBIOLOGY - GENERAL O RDERABLES Final Result Performing Organization Address [facility] Co de Phone Number [facility] [address] [place] [phone] * Influenza B (ID NOW Rapid Molecular) (01/31/2025 10:50 AM EDT) Influenza B Negative Negative, Indeterminate [facility] Swab 01/31/2025 10:5 0 AM EDT us Tiara Lloyd DO POINT OF CARE TEST ENTER/MELODIE T ORDERABLES Final Result Performing Organization Address [facility] Co de Phone Number [facility] [address] [place] [phone] * Influenza A (ID NOW Rapid Molecular) (01/31/2025 10:50 AM EDT) Influenza A Negative Negative, Indeterminate [facility] Swab 01/31/2025 10:5 0 AM EDT Tiara Lloyd DO POINT OF CARE TEST ENTER/MELODIE T ORDERABLES Final Result Performing Organization Address [facility] Co de Phone Number [facility] [address] [place] [phone] * POCT rapid strep A manually resulted (01/31/2025 10:31 AM EDT) [facility] Rapid Strep A Screen Negative Negative, None Detected Swab 01/31/2025 10:3 1 AM EDT us Tiara Beyerak DO POINT OF CARE TEST ENTER/MELODIE T ORDERABLES Final Result * POCT Rapid COVID Ag (01/31/2025 10:27 AM EDT) [facility] Rapid COVID Ag Negative Swab 01/31/2025 10:2 7 AM EDT us Tiara Lloyd DO POINT OF CARE TEST ENTER/MELODIE T ORDERABLES Final Result * Vascular US lower extremity venous insufficiency bilateral (01/03/2025 1:10 PM EDT) 01/03/2025 1:10 PM EDT Narrative [facility] - 01/03/2025 1:56 PM EDT [place] [address] Ultrasound Report Signed Patient: Madeline Santizo MR#: [id number] [birth year] : 1995 Acct:[id number] Age/Sex: 29 / F ADM Date: 01/03/25 Loc: HO.US Attending Dr: Darling Johnston MD Ordering Physician: Darling Reyes MD Date of Service: 01/03/25 Procedure(s): US venous insuf bilat Accession Number(s): [id number] cc: Darling Reyes MD EXAMINATION: US LOWER [...] Albert Frazier MD 01/03/2025 01:54 PM EDT Dictated By: Albert Frazier MD Signed By: <Electronically signed by Albert Frazier MD in OV> 01/03/25 1354 DD/ 1310 TD/TT: 01/03/25 1335 Benefits Manager: Procedure Note Donotuseinterpreter, Image - 01/03/2025 [place] [address] Ultrasound Report Signed Patient: Madeline Santizo [facility]#: [id number] 20 : 1995Acct:[id number] Age/Sex: 29 FADM Date: 01/03/25 Loc: HO.US Attending Dr: Darling Johnston MD Ordering Physician: Darling Reyes MD Date of Service: 01/03/25 Procedure(s): US venous insuf bilat Accession Number(s): [id number] cc: Darling Reyes MD EXAMINATION: US LOWER [...] 01/03/25 1354 DD/ 1310 TD/TT: 01/03/25 1335 Benefits Manager: us Darling Johnston MD CV VASCULAR PROCEDURE S Edited Result - Final [facility] [address] [place] [phone] * (ABNORMAL) POCT Wet Mount/SHARMILA (12/29/2024 2:45 AM EDT) SHARMILA Prep Comment:positive Vaginal Fluid Vaginal structure / Unknown 12/29/2024 2:45 AM EDT us Olya Cao AGRICULTURAL RESEARCH TECHNOLOGIST POINT OF CARE TEST ENTER/EDIT ORDERABLES Final Result * POCT Urine (12/05/2024 11:44 AM EDT) Preg Test, Ur Negative Negative, Indeterminate, None Detected, Invalid, Specimen unsatisfactory for evaluation, Weakly Positive, 2+ QC Media Lot # [id number] Lot# Expiration Date [id number] QC TEST ,312,026 Urine 12/05/2024 11:4 4 AM EDT Darling Johnston MD POINT OF CARE TEST EN TER/EDIT ORDERABLES Final Result * Pap Smear (11/13/2022 1:12 PM EDT) 11/13/2022 1:12 PM EDT 11/14/2022 8:00 AM EDT Narrative [facility] - 12/10/2022 11:35 AM EDT ----- ------- Name: Madeline Santizo Age/Sex: 27/F : 1995 Unit#: [id number] Attend Dr: Sally Alfaro CNM Re11/13/22 Status: DEP REF Location: [facility] Disch: ----- ------- SPEC : [id number] RECD: 11/14/22-0800 STATUS: JOVITA DA SILVA NUM: [id number] NAVYA: 11/13/22-13[address] [facility] [address]: Sally Alfaro [facility] ENTERED: 11/14/22 SP TYPE: Pap Smr OTHR DR: Darling Reyes MD ORDERED: Pap Smear Interpretation Satisfactory for evaluation. Negative for intraepithelial lesion or malignancy. Clinical Information LMP: 10/13/22 (approximately) Previous PAP test: 12/28/17, ASCUS Material Received ThinPrep-Cervical Copies To: Darling Reyes MD [address] [place], [place] [phone] Sally Alfaro[address] Barber [address] [place] [address] ----- ------- Signed (signature on file) TRAVIS Bray (ASCP) 12/10/22 1135 ----- ------- END OF REPORT [facility] External Provider LAB CYT OLRUTHY ORDERABLES Final Result [facility] [address] [place] [address] [phone] * HEPATITIS C AB W/REFL TO HCV RNA, QN, PCR (06/27/2021 11:08 AM EST) HEPATITIS C ANTIBODY NON-REACT LYLA NON-REACT LYLA [facility] INDEX 0.01 <1.00 [facility] Comment: HCV antibody was non-reactive. There is no laboratory evidence of HCV infection. In most cases, no further action is required. However, if recent HCV exposure is suspected, a test for HCV RNA (test code 35940) is suggested. For additional information please refer to http://[employer]Bot/faq/RMM72n9 (This link is being provided for informational/ educational purposes only.) 06/27/2021 11:0 8 AM EST Darling Johnston MD HISTORICAL/NON ORDERA BLE LABS Final Result Performing Organization Address [facility] de Phone Number [facility] [address] [place] [address], * HIV 1/2 ANTIGEN/ANTIBODY,FOURTH GENERATION W/RFL (06/27/2021 11:08 AM EST) HIV-1/2 ANTIGEN AND ANTIBODIES, 4TH GENERATION W/ REFLEX NON-REACT LYLA NON-REACT LYLA [facility] Comment: HIV-1 antigen and HIV-1/HIV-2 [...] purpose. For additional information please refer to http://[employer]Bot/faq/QKK809 (This link is being provided for informational/ educational purposes only.) The performance of this assay has not been clinically validated in patients less than 2 years old. 06/27/2021 11:0 8 AM EST Darling Johnston MD LAB BLOOD ORDERABLES Final Result Performing Organization Address [facility] Co de Phone Number [facility] [address] [place] [address] from Last 3 Months or Most Recently Relevant to Health Maintenance Insurance C3 Care Teams Public Relations Professional Relationship Specialty Start Date End Date Darling Reyes MD [address] [place] [phone] PCP - General Family Medicine 02/10/18
--- OUTSIDE RECORDS SUMMARY | 2025-03-01 12:06 | XMS_ITS | Encounter Summary ---
Author Organization [employer] Address [address] [place] [address] 7 [place] [address] Care Team Providers Care Car Repairer Pullman Name Role Phone Darling Reyes MD Primary Care Provide r Reason for Visit * Reason Onset Date Comments Med Refill 11/28/2024 Encounter Details Date Type Department Care Team ([facility] st Contact Info) Description 11/28/2024 Telephone [facility] [address] [place], [place] [phone] Darling Reyes MD [address] [place], [place] [phone] Med Refill Social History Tobacco Use Types [...] 100 MG tablet To be sent to: [facility] - [place], [place] - [address] [place] [address] documented in this encounter Plan of Treatment Upcoming Encounters Date Type Department Care Team ([facility] st Contact Info) Description 05/04/2025 10:15 AM EST Office Visit [facility] [address] [place] [address] Darling Reyes MD [address] [place] [address] documented as of this encounter Visit Diagnoses Not on filedocumented in this encounter Additional Health Concerns Assessment Noted Time PHQ-9 Depression Total Score: 19 024 11:31 AM EST documented as of this encounter Care Teams Car Repairer Pullman Relationship Specialty Start Date End Date Darling Reyes MD [address] [place] [address] PCP - General Family Medicine 02/10/18 documented as of this encounter
--- OUTSIDE RECORDS SUMMARY | 2025-03-01 12:06 | XMS_ITS | Clinical Summary ---
Author Organization [facility] Address [address] [phone] Care Team Providers Care Waste Handling Technician Name Role Phone Gisell Cedeno Primary Care Provider [phone] Allergies No known active allergies Medications No [...] this topic Insurance /FREE CARE Care Teams Waste Handling Technician Relationship Specialty Start Date End Date Gisell Cedeno [address] [place], [place] [address] PCP - General Internal Medicine 04/21/18
--- OUTSIDE RECORDS SUMMARY | 2025-03-01 12:06 | XMS_ITS | Encounter Summary ---
Author Organization [employer] Address [address] [place] [address] [address] [place] [address] Care Team Providers Care Dry Starch Operator Name Role Phone Darling Reyes MD Primary Care Provide r Encounter Details Date Type Department Care Team ([facility] st Contact Info) Description 08/03/2023 Orders Only [facility] [address] [place], [place] [phone] Darling Reyes MD [address] [place], [place] [phone] Social History Tobacco Use Types Packs/Day Years [...] Description 05/04/2025 10:15 AM EST Office Visit [facility] [address] [place] [phone] Darling Reyes MD [address] [place] [phone] documented as of this encounter Visit Diagnoses Not on filedocumented in this encounter Additional Health Concerns Assessment Noted Time PHQ-9 Depression Total Score: 10 023 10:15 AM EST documented as of this encounter Care Teams Dry Starch Operator Relationship Specialty Start Date End Date Darling Reyes MD [address] [place] [phone] PCP - General Family Medicine 02/10/18 documented as of this encounter
--- OUTSIDE RECORDS SUMMARY | 2025-03-01 12:06 | XMS_ITS | Encounter Summary ---
Author Organization [employer] Address [address] [facility] 7t [place] [address] Care Team Providers Care Manager In Training Name Role Phone Darling Reyes MD Primary Care Provide r Encounter Details Date Type Department Care Team ([facility] st Contact Info) Description 08/28/2024 Orders Only [facility] [address] [place] [phone] George Knapp MD [address] [place], [place] [phone] Dysuria (Primary Dx) Social History Tobacco Use [...] 10:15 AM EST Office Visit [facility] [address] [place] [phone] Darling Reyes MD [address] [place] [phone] documented as of this encounter Procedures Procedure Name Priority Date/Time Associated Diagnosis Comments CULTURE, URINE, ROUTINE Routine 08/29/2024 12:00 AM EDT Dysuria documented in this encounter Results * Culture, Urine, Routine (08/29/2024 12:00 AM EDT) Urine Urine specimen obtained by clean catch procedure / Unknown 08/29/2024 08/29/2024 Comment:UACC Narrative [facility] - 08/31/2024 11:03 AM EDT Urine Culture No growth. Specimen Source: Urine clean catch us George Knapp MD LAB MICROBIOLOGY - GENERAL ORDER JACK Final Result [facility] [address] [place] [address] [phone] documented in this encounter Visit Diagnoses Diagnosis Dysuria- Primary documented in this encounter Additional Health Concerns Assessment Noted Time PHQ-9 Depression Total Score: 19 024 11:31 AM EST documented as of this encounter Care Teams Manager In Training Relationship Specialty Start Date End Date Darling Reyes MD [address] [place] [address] PCP - General Family Medicine 02/10/18 documented as of this encounter
--- OUTSIDE RECORDS SUMMARY | 2025-03-01 12:06 | XMS_ITS | Encounter Summary ---
Author Organization [employer] Address [address] [facility] 7t [place] [address] Care Team Providers Care Hogshead Press Operator Name Role Phone Darling Reyes MD Primary Care Provide r Encounter Details Date Type Department Care Team (Latest Contact Info) Description 01/04/2025 Results Follow-Up [facility] MEDICINE [address] [place], [place] [phone] Darling Reyes MD [address] [place] [address] Vascular US lower extremity venous insufficiency bilateral [...] Description 05/04/2025 10:15 AM EST Office Visit [facility] MED[facility]INE [address] [place] [phone] Darling Reyes MD [address] [place] [phone] documented as of this encounter Visit Diagnoses Not on filedocumented in this encounter Additional Health Concerns Assessment Noted Time PHQ-9 Depression Total Score: 19 024 11:31 AM EST documented as of this encounter Care Teams Hogshead Press Operator Relationship Specialty Start Date End Date Darling Reyes MD [address] [place] [phone] PCP - General Family Medicine 02/10/18 documented as of this encounter
== END 2025-03-01 11:30 | disposition home or self-care (01) ==
LOC: HO.HWSM 10:31
PROVIDERS: PCP Internal Medicine; Visit Provider Advanced Practice Midwife
DX: Z01.419 Encounter for gynecological examination (general) (routine) without abnormal findings (principal); F41.9 Anxiety disorder, unspecified; Z86.2 Personal history of diseases of the blood and blood-forming organs and certain disorders involving the immune mechanism; Z87.42 Personal history of other diseases of the female genital tract; Z30.09 Encounter for other general counseling and advice on contraception; Z32.02 Encounter for pregnancy test, result negative
CPT/HCPCS: 99395; 99459

== ENCOUNTER 2025-03-01 10:31 | Outpatient (REF) | payer MEDICAID, SELFPAY ==
[2025-03-02 06:08] LABS: Bacterial Vaginosis PCR POSITIVE (Negative); Candida Group PCR NOT DETECTED (Not Detect); Candida glab krusei PCR NOT DETECTED (Not Detect); Trichomonas vaginalis PCR NOT DETECTED (Not Detect)
[2025-03-02 06:38] LABS: CT PCR NOT DETECTED (Not Detect.); NG PCR NOT DETECTED (Not Detect.)
== END 2025-03-01 10:32 | disposition home or self-care (01) ==
LOC: HO.LNP 10:31
PROVIDERS: PCP Internal Medicine; Visit Provider Advanced Practice Midwife
DX: Z01.419 Encounter for gynecological examination (general) (routine) without abnormal findings (principal); Z30.09 Encounter for other general counseling and advice on contraception; F41.9 Anxiety disorder, unspecified; Z20.2 Contact with and (suspected) exposure to infections with a predominantly sexual mode of transmission; Z32.02 Encounter for pregnancy test, result negative; Z86.2 Personal history of diseases of the blood and blood-forming organs and certain disorders involving the immune mechanism; Z87.42 Personal history of other diseases of the female genital tract
CPT/HCPCS: 81025; 81515; 87491; 87591; 99395; 99459

== ENCOUNTER 2025-03-01 11:42 | Outpatient (REF) | payer MEDICAID, SELFPAY | END 2025-03-01 11:43 | disposition home or self-care (01) | LOC: HO.LAB 11:42 | PROVIDERS: Visit Provider Advanced Practice Midwife | DX: Z13.89 Encounter for screening for other disorder (principal) ==

== ENCOUNTER 2025-04-06 16:39 | Outpatient (REF) | payer MEDICAID, SELFPAY ==
--- OUTSIDE RECORDS SUMMARY | 2025-04-06 09:40 | XMS_ITS | Encounter Summary ---
Author Organization [employer] Address [address] [place] [address] 7t [place] [address] Care Team Providers Care Manager Construction Name Role Phone Darling Reyes MD Primary Care Provide r Reason for Referral * Imaging (Routine) - Authorized Specialty Diagnoses / Procedures Referred By Contac t Referred To Contact Radiology Diagnoses Secondary amenorrhea Procedures US Pelvis Transvaginal Tiara Lloyd DO [address] [place] [address] Phone: tel: fax: [address] Phone: tel: fax: Referral ID Status Reason Start Date Expiration Date V isits Requested Visits Authorized [id number] Authorized 04/06/2025 04/06/2026 1 1 * Imaging (Routine) - Authorized Specialty Diagnoses / Procedures Referred By Contac t Referred To Contact Radiology Diagnoses Secondary amenorrhea Procedures Us Pelvis complete Tiara Lloyd DO [address] [place] [address] Phone: tel: fax: [address] Phone: tel: fax: Referral ID Status Reason Start Date Expiration Date V isits Requested Visits Authorized [id number] Authorized 04/06/2025 04/06/2026 1 1 Reason for Visit * Reason Comments vaginal itchy and discharge Encounter Details Date Type Department Care Team (Late st Contact Info) Description 04/06/2025 9:40 AM EST Office Visit [facility] [address] [place] [address] Tiara Lloyd DO [address] [place] [address] Vaginal itching (Primary Dx); Secondary amenorrhea Social History Tobacco Use Types Packs/Day Years [...] Sign Reading Time Taken Comments Blood Pressure 120/78 04/06/2025 9:24 AM EST Pulse 88 04/06/2025 9:24 AM EST Temperature 36.2 C (97.1 F) 04/06/2025 9:24 AM EST Respiratory Rate 16 04/06/2025 9:24 AM EST Oxygen Saturation 100% 04/06/2025 9:24 AM EST Inhaled Oxygen Concentration - - Weight 58.3 kg (128 lb 9.6 oz) 04/06/2025 9:24 A M EST Height 162.6 cm (5' 4 ) 04/06/2025 9:24 AM EST Body Mass Index 22.07 04/06/2025 9:24 AM EST documented in this encounter Progress Notes * Jason Giron - 04/06/2025 9:40 AM EST SUBJECTIVE Madeline Santizo is a 29 y.o. female who presents for Sick Visit. She presents to [place] today c/o vaginal itching. She saw her PCP in [place] in JAN for vaginal discharge and itching. She was treated empirically for yeast and her BV swab tested positive for jo ann. She was seen by CHIEF OF STAFF a couple of weeks later for her annual well woman exam. She tested positive forBV and was treated. She comes in today c/o vaginal itching which started on Thursday. She has also been having a thin white vaginal discharge. She denies any odor. She says she is sexually active with her AMAB partner. She does not use BC. She says there is no noticeable odor after sex. She also denies any urinary sx. She says she has not had a period in 2-3 mos; CHIEF OF STAFF documented LMP as 01/20. She says that her period is usually irregular when she is not using control. She says once she went one year without having her period. She is waiting for nexplanon placement at [facility] [place], but CHIEF OF STAFF told her that she needs to have her period first. History provided by: Patient upholsterer limousine and hearse used: Yes Vaginal Itching Severity: Moderate Onset quality: Sudden Duration: 3 days Timing: Constant Progression: Unchanged Chronicity: Recurrent Associated symptoms: no abdominal pain, no chest pain, no cough, no diarrhea, no fever, no headaches, no nausea, no rash, no shortness of breath and no vomiting Review of Systems Constitutional: Negative for activity change, appetite change, chills, fever and unexpected weight change. Respiratory: Negative for cough and shortness of breath. Cardiovascular: Negative for chest pain, palpitations and leg swelling. Gastrointestinal: Negative for abdominal pain, diarrhea, nausea and vomiting. Genitourinary: Positive for menstrual problem (LMP 2-3 m/a) and vaginal discharge (+itching). Negative for difficulty urinating, dysuria, hematuria, pelvic pain, vaginal bleeding and vaginal pain. Skin: Negative for rash. Neurological: Negative for weakness and headaches. 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, without psychotic features (CMS/HCC) (HCC) Anxiety Other constipation Vaginal discharge Dysuria Nausea Acquired thrombocytopenia (CMS/HCC) Chronic midline low back pain without sciatica Hair loss Difficulty sleeping Primary insomnia PTSD (post-traumatic stress disorder) Missed period Breast nodule Muscular pain Pain due to varicose veins of both lower extremities Upper back pain Epigastric pain Allergies Allergen Reactions Aspirin OBJECTIVE Visit Vitals BP 120/78 (BP Location: Right arm, Patient Position: Sitting, BP Cuff Size: Adult) Pulse 88 Temp 97.1 ??F (36.2 ??C) (Temporal) Resp 16 Ht 5' 4 (1.626 m) Wt 128 lb 9.6 oz (58.3 kg) SpO2 100% BMI 22.07 kg/m?? OB Status Having periods Smoking Status Never BSA 1.62 m?? Physical Exam Constitutional: General: She is not in acute distress. Appearance: Normal appearance. Cardiovascular: Rate and Rhythm: Normal rate and regular rhythm. Heart sounds: Normal heart sounds. No murmur heard. Pulmonary: Effort: Pulmonary effort is normal. Breath sounds: Normal breath sounds. No wheezing or rhonchi. Abdominal: Palpations: Abdomen is soft. There is no mass. Tenderness: There is no abdominal tenderness. There is no right CVA tenderness or left CVA tenderness. Neurological: General: No focal deficit present. Mental Status: She is alert and oriented to person, place, and time. Cranial Nerves: No cranial nerve deficit. Motor: No weakness. Gait: Gait normal. Psychiatric: Mood and Affect: Mood normal. Office Visit on 04/06/2025 Component Date Value Ref Range Status Preg Test, Ur 04/06/2025 Negative Negative, Indeterminate, None Detected, Invalid, Specimen unsatisfactory for evaluation, Weakly Positive, 2+ Final QC Media Lot # 04/06/2025 [id number] Final Lot# Expiration Date 04/06/2025 [id number] Final Color, UA 04/06/2025 Yellow Final Clarity, UA 04/06/2025 Clear Final Glucose, UA 04/06/2025 Negative Final Bilirubin, UA 04/06/2025 Negative Final Ketones, UA 04/06/2025 Negative Final Spec Grav, UA 04/06/2025 1.020 Final Blood, UA 04/06/2025 Negative Negative, None Detected Final pH, UA 04/06/2025 6.5 Final Protein, UA 04/06/2025 Negative Final Urobilinogen, UA 04/06/2025 0.2 Final Leukocytes, UA 04/06/2025 Negative Negative, Rare, Trace Final Nitrite, UA 04/06/2025 Negative Negative, None Detected Final QC Media Lot # 04/06/2025 [id number] Final Lot# Expiration Date 04/06/[id number] Final Assessment/Plan Diagnoses and all orders for this visit: Vaginal itching Probable candidiasis -treat empirically with diflucan -trial terconazole cream for symptomatic relief -advised contact [facility] if sx do not resolve Secondary amenorrhea With h/o irregular periods, hcg negative -check basic labs -referred for pelvic US -consider trial of provera if no period by end april -f/u with CHIEF OF STAFF as scheduled, she agrees with plans --Follow-up with PCP as scheduled or sooner prn-- Current Outpatient Medications: acetaminophen (Tylenol 8 Hour) 650 MG ER tablet, TAKE 1 TABLET BY MOUTH EVERY 8 HOURS NEEDED FORMILD PAIN, DO NOT BREAK, CRUSH, DISSOLVE OR CHEW, Disp: 40 tablet, Rfl: 1 BENZAC AC [...] TWICE DAILY, Disp: 180 tablet, Rfl: 3 fluconazole (Diflucan) 150 MG tablet, Take one tablet today then after 72 hrs take another tablet, Disp: 2 tablet, Rfl: 0 fluticasone (Flonase) 50 MCG/ACT nasal spray, Administer [...] Disp: 45 tablet, Rfl: 1 Scribe Attestation: Kasey, Jason Giron, am serving as a scribe to document services personally performed by Tiara German, based on the patient's response to questions by provider and provider's statements to me. 04/06/25 10:01 AM Physicians Attestation: I, Tiara Lloyd DO, have reviewed the information by the scribe, Jason Giron, for accuracy and agree with its content. documented in this encounter Plan of Treatment Upcoming Encounters Date Type Department Care Team (Late st Contact Info) Description 05/04/2025 10:15 AM EST Office Visit [facility] [address] [place], [place] [phone] Darling Reyes MD [address] [place], [place] [phone] Scheduled Orders Name Type Priority Associated Diagnoses Orde r Schedule Bacterial Vaginosis Microbiology Routine Vaginal itching Ordered: 04/06/2025 Chlamydia/N. Gonorrhoeae RNA, TMA, Urogenitial Microbiology Routine Vaginal itching Ordered: 04/06/2025 Us Pelvis complete Imaging Routine Secondary amenorrhea Expected: 04/06/2025, Expires: 04/06/2026 US Pelvis Transvaginal Imaging Routine Secondary amenorrhea Expected: 04/06/2025, Expires: 04/06/2026 T4, Free Lab Routine Secondary amenorrhea Expected: 04/06/2025 (Approximate), Expires: 04/06/2026 TSH Lab Routine Secondary amenorrhea Expected: 04/06/2025 (Approximate), Expires: 04/06/2026 Vitamin D, 25-Hydroxy, Total, Immunoassay Lab Routine Secondary amenorrhea Expected: 04/06/2025 (Approximate), Expires: 04/06/2026 CBC Lab Routine Secondary amenorrhea Expected: 04/06/2025, Expires: 04/06/2026 Basic Metabolic Panel Lab Routine Secondary amenorrhea Expected: 04/06/2025 (Approximate), Expires: 04/06/2026 documented as of this encounter Procedures Procedure Name Priority Date/Time Associated Diagnosis Comments POCT , URINE Routine 04/06/2025 9:44 AM EST Vaginal itching POCT URINALYSIS DIPSTICK Routine 04/06/2025 9:41 AM EST Vaginal itching documented in this encounter Results * POCT , urine manually resulted (04/06/2025 9:44 AM EST) Preg Test, Ur Negative Negative, Indeterminate, None Detected, Invalid, Specimen unsatisfactory for evaluation, Weakly Positive, 2+ QC Media Lot # [id number] Lot# Expiration Date [id number] Urine 04/06/2025 9:44 AM EST Tiara Prema DO POINT OF CARE TEST ENTER/MELODIE T ORDERABLES Final Result * POCT urinalysis dipstick manually resulted (CPT 35707) (04/06/2025 9:41 AM EST) Color, UA Yellow Clarity, UA Clear Glucose, UA Negative Bilirubin, UA Negative Ketones, UA Negative Spec Grav, UA 1.020 Blood, UA Negative Negative, None Detected pH, UA 6.5 Protein, UA Negative Urobilinogen, UA 0.2 Leukocytes, UA Negative Negative, Rare, Trace Nitrite, UA Negative Negative, None Detected QC Media Lot # [id number] Lot# Expiration Date [id number] Urine (Urine, Random) 04/06/2025 9:41 AM EST Tiara Jurmellisa PORTER POINT OF CARE TEST ENTER/MELODIE T ORDERABLES Final Result documented in this encounter Visit Diagnoses Diagnosis Vaginal itching- Primary Pruritus of genital organs Secondary amenorrhea Absence of menstruation documented in this encounter Additional Health Concerns Assessment Noted Time PHQ-9 Depression Total Score: 19 024 11:31 AM EST documented as of this encounter Care Teams Manager Construction Relationship Specialty Start Date End Date Darling Reyes MD [address] [place] [phone] PCP - General Family Medicine 02/10/18 documented as of this encounter
--- OUTSIDE RECORDS SUMMARY | 2025-04-06 18:49 | XMS_ITS | Clinical Summary ---
Author Organization [facility] Address [address] [place] [address] Care Team Providers Care Custodial Engineer Name Role Phone Unavailable Primary Care Provider [...] 1 Applicator vaginally nightly at bedtime. 12/30/19 25 Active metroNIDAZOLE (FLAGYL) 500 mg tablet Take [...] times daily for 30 days. 60 Tablet 03/21/20 25 025 Active hydrOXYzine HCL (ATARAX) 25 mg tablet Take 1 Tablet by mouth 3 (three) times daily as needed for anxiety for up to 30 days. 90 Tablet 03/21/20 25 025 Active QUEtiapine (SEROQUEL) 100 mg tablet Take 1 Tablet by mouth nightly at bedtime for 30 days. 30 Tablet 03/21/20 25 025 Active sertraline 200 mg capIndications:thelma or depressive disorder Take 200 mg by mouth once daily for 30 days Indications: major depressive disorder. 30 Capsule 03/21/20 25 025 Active busPIRone (BUSPAR) 10 mg tablet Take 1 Tablet by mouth 2 (two) times daily for 30 days. 60 Tablet 01/13/20 25 025 Discontin ued(Reord er (E-Cancel Not Sent)) sertraline 200 mg capIndications:thelma or depressive disorder Take 200 mg by mouth once daily for 30 days Indications: major depressive disorder. 30 Capsule 01/13/20 25 025 Discontin ued(Reord er (E-Cancel Not Sent)) hydrOXYzine HCL (ATARAX) 25 mg tablet Take 1 Tablet by mouth 3 (three) times daily as needed for anxiety for up to 30 days. 90 Tablet 01/13/20 25 025 Discontin ued(Reord er (E-Cancel Not Sent)) QUEtiapine (SEROQUEL) 50 mg tablet Take 1 Tablet by mouth nightly at bedtime for 30 days. 30 Tablet 01/13/20 25 025 Discontin ued(Reord er (E-Cancel Not Sent)) [...] (post-traumatic stress disorder) 05/10/2024 Assessment & Plan (03/21/2025 1:57 PM EDT): Assessment: Patient experiences anxiety attacks, She is hypervigilant with flashbacks of the past. Plan: - Continue BuSpar to 10 mg PO twice daily - Continue hydroxyzine to 25 mg PO three times daily - Continue Sertraline to 200 mg Assessment & Plan (01/19/2025 1:38 PM EDT): [...] of the new regimen. Assessment & Plan (03/21/2025 1:56 PM EDT): Major Depressive Disorder Assessment: depressed mood, chronic stressors, sleep and appetite disturbance, flat and tearful affect. Plan: - Continue sertraline to 200 mg PO daily - Increase Quetiapine to 100 mg PO at bedtime for sleep Assessment & Plan (01/19/2025 1:26 PM EDT): [...] Encounters Date Type Department Care Team Description 03/21/2025 1:00 PM EDT Behavioral Health Visit [facility] [address] [place] [address] [place] [phone] Jazz Gutierrez APRN 01/12/2025 1:00 PM EDT Behavioral Health Visit [facility] [address] [place] [phone] Jazz Gutierrez APRN from Last 3 Months Immunizations Immunization Administration Dates Next Due Flu, Preservative Free 02/23/2018 INFLUENZA, SEASONAL, INJECTABLE, PRESERVATIVE FR EE 08/23/2020 TDAP 10/18/2020,05/17/2018 Social History Tobacco Use Types Packs/Day Years Used Date Smoking Tobacco: Never Assessed Comments No Sex and Gender Information Value Date Recorded Sex Assigned at Female 11/22/2024 10:03 AM PDT Legal Sex Female 10:03 AM PDT Gender Identity Female 11/22/2024 10:03 AM PDT Sexual Orientation Not on file Plan of Treatment Upcoming Encounters Date Type Department Care Team ([facility] st Contact Info) Description 04/20/2025 12:00 PM EST Behavioral Health Visit [facility] [address] [place] [phone] Jazz Gutierrez APRN [facility] [place] [phone] Health Maintenance Due Date Last Done Comments Anxiety Screening 1993 Depression Monitoring 1993 HPV Screening (self-collect) 1993 HPV Screening 1993 Hepatitis C Screening 1993 Lipid Screening 1993 Pap + HPV 1993 Tobacco Screening 1993 Relationship Safety Screening/Counseling 2008 Hypertension Screening (#1) 10/15/2011 Imm-Hepatitis B (1 of 3 - 19 + 3-dose series) 2012 Imm-HPV (1 - 3-dose SCDM series) 2020 Alcohol and Drug Screen 06/01/2024 [id number] ( - 2024- season) 2025 Imm-Influenza (#1) 2025 08/23/2020, 02/23/2018 Diabetes Screening 08/26/2025 08/26/2024, 0 08/20/2023, 06/27/2021 Cervical Cancer Screening 11/13/2025 Pap Smear 11/13/2025 11/13/2022 Imm-DTaP/Tdap/Td (3 - Td or Tdap) 10/18/2030 021, 05/17/2018 HIV Screening Completed 06/27/2021, 06/27/2021 Cervical Ablation/Cold-Knife Conization Discontinued Cervical Cryotherapy Discontinued Colposcopy Discontinued Excision/Leep Discontinued HPV Genotyping Discontinued Vaginal Pap Discontinued Vulvoscopy Discontinued Insurance [facility] [place] MEDICAID
--- OUTSIDE RECORDS SUMMARY | 2025-04-06 18:49 | XMS_ITS | Encounter Summary ---
Author Organization [employer] Address [address] [facility] 7t [place] [address] Care Team Providers Care Healthcare Insurance Sales Agent Name Role Phone Darling Reyes MD Primary Care Provide r Encounter Details Date Type Department Care Team ([facility] st Contact Info) Description 08/03/2023 Orders Only [facility] [address] [place], [place] [phone] Darling Reyes MD [address] [place], [place] [phone] Social History Tobacco Use Types Packs/Day Years [...] Description 05/04/2025 10:15 AM EST Office Visit [facility] [address] [place] [phone] Darling Reyes MD [address] [place] [address] documented as of this encounter Visit Diagnoses Not on filedocumented in this encounter Additional Health Concerns Assessment Noted Time PHQ-9 Depression Total Score: 10 023 10:15 AM EST documented as of this encounter Care Teams Healthcare Insurance Sales Agent Relationship Specialty Start Date End Date Darling Reyes MD [address] [place] [phone] PCP - General Family Medicine 02/10/18 documented as of this encounter
--- OUTSIDE RECORDS SUMMARY | 2025-04-06 18:49 | XMS_ITS | Encounter Summary ---
Author Organization [employer] Address [address] [place] [address] [address]t [place] [address] Care Team Providers Care Industrial Controls Technician Name Role Phone Darling Reyes MD Primary Care Provide r Reason for Visit * Reason Onset Date Comments Med Refill 03/02/2025 Encounter Details Date Type Department Care Team ([facility] st Contact Info) Description 03/02/2025 Refill [facility] [address] [place] [address] [phone] Darling Reyes MD [address] [place] [address] Vaginal discharge Social History Tobacco Use Types [...] Description 05/04/2025 10:15 AM EST Office Visit [facility] [address] [place] [phone] Darling Reyes MD [address] [place] [phone] documented as of this encounter Visit Diagnoses Diagnosis Vaginal discharge Leukorrhea, not specified as infective documented in this encounter Additional Health Concerns Assessment Noted Time PHQ-9 Depression Total Score: 19 024 11:31 AM EST documented as of this encounter Care Teams Industrial Controls Technician Relationship Specialty Start Date End Date Darling Reyes MD [address] [place] [phone] PCP - General Family Medicine 02/10/18 documented as of this encounter
--- OUTSIDE RECORDS SUMMARY | 2025-04-06 18:49 | XMS_ITS | Encounter Summary ---
Author Organization [employer] Address [address] [place] [address] 7t [place] [address] Care Team Providers Care Azure Principal Solution Specialist Name Role Phone Darling Reyes MD Primary Care Provide r Encounter Details Date Type Department Care Team (Latest Contact Info) Description 04/06/2025 Travel Social History Tobacco Use Types Packs/Day [...] Description 05/04/2025 10:15 AM EST Office Visit [facility] [address] [place] [address] Darling Reyes MD [address] [place] [address] documented as of this encounter Visit Diagnoses Not on filedocumented in this encounter Additional Health Concerns Assessment Noted Time PHQ-9 Depression Total Score: 19 024 11:31 AM EST documented as of this encounter Care Teams Azure Principal Solution Specialist Relationship Specialty Start Date End Date Darling Reyes MD [address] [place] [address] PCP - General Family Medicine 02/10/18 documented as of this encounter
--- OUTSIDE RECORDS SUMMARY | 2025-04-06 18:49 | XMS_ITS | Encounter Summary ---
Author Organization [employer] Address [address] [place] [address] 7t [place] [address] Care Team Providers Care Horse Wrangler Name Role Phone Darling Reyes MD Primary Care Provide r Reason for Visit * Reason Comments Med Refill Encounter Details Date Type Department Care Team ([facility] Contact Info) Description 03/02/2025 Refill [facility] [address] [place] [phone] Darling Reyes MD [address] [place] [address] Vaginal discharge Social History Tobacco Use Types [...] Description 05/04/2025 10:15 AM EST Office Visit [facility] [address] [place] [phone] Darling Reyes MD [address] [place] [phone] documented as of this encounter Visit Diagnoses Diagnosis Vaginal discharge Leukorrhea, not specified as infective documented in this encounter Additional Health Concerns Assessment Noted Time PHQ-9 Depression Total Score: 19 024 11:31 AM EST documented as of this encounter Care Teams Horse Wrangler Relationship Specialty Start Date End Date Darling Reyes MD [address] [place] [address] PCP - General Family Medicine 02/10/18 documented as of this encounter
--- OUTSIDE RECORDS SUMMARY | 2025-04-06 18:50 | XMS_ITS | Encounter Summary ---
Author Organization [employer] Address [address] [place] [address] [address] [place] [address] Care Team Providers Care Tile Installer Name Role Phone Darling Reyes MD Primary Care Provide r Reason for Visit * Reason Onset Date Comments Med Refill 11/28/2024 Encounter Details Date Type Department Care Team ([facility] st Contact Info) Description 11/28/2024 Telephone [facility] [address] [place], [place] [phone] Darling Reyes MD [address] [place], [place] [phone] Med Refill Social History Tobacco Use Types [...] 100 MG tablet To be sent to: [facility] - [place], [place] - [address] [place] [address] documented in this encounter Plan of Treatment Upcoming Encounters Date Type Department Care Team ([facility] st Contact Info) Description 05/04/2025 10:15 AM EST Office Visit [facility] [address] [place] [address] Darling Reyes MD [address] [place] [address] documented as of this encounter Visit Diagnoses Not on filedocumented in this encounter Additional Health Concerns Assessment Noted Time PHQ-9 Depression Total Score: 19 024 11:31 AM EST documented as of this encounter Care Teams Tile Installer Relationship Specialty Start Date End Date Darling Reyes MD [address] [place] [address] PCP - General Family Medicine 02/10/18 documented as of this encounter
--- OUTSIDE RECORDS SUMMARY | 2025-04-06 18:50 | XMS_ITS | Clinical Summary ---
Author Organization [facility] Address [address] [phone] Care Team Providers Care Securities Broker Name Role Phone Gisell Cedeno Primary Care Provider [phone] Allergies No known active allergies Medications No [...] 10/15/2015 Alcohol/Substance Use Screening 06/01/2024 COVID-19 Vaccine (1 - 2024-2 6 season) 2025 Influenza Vaccine (#1) 2025 02/23/2018 Cervical Cancer Screening 11/13/2025 Pap Smear 11/13/2025 11/13/2022 HIV Screening Completed 06/27/2021, 06/27/2021 Pneumococcal Vaccine: Pediatric (0-5 Years) and At-Risk Patients (6-50 Years) Aged Out No longer eligible based on patient's age to complete this topic Insurance HS/[place] [place] [address] [facility] Care Teams Securities Broker Relationship Specialty Start Date End Date Gisell Cedeno [address] [facility] [address] [place] [address] PCP - General Internal Medicine 04/21/18
--- OUTSIDE RECORDS SUMMARY | 2025-04-06 18:50 | XMS_ITS | Clinical Summary ---
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 30 tablet 025 2025 Active fluticasone (Flonase) 50 MCG/ACT nasal spray Administer 2 sprays into each nostril Once per day. Shake gently. Before first use, prime pump. After use, clean tip and replace cap. 16 g 025 2025 Active acetaminophen (Tylenol 8 Hour) 650 MG ER tablet TAKE 1 TABLET BY MOUTH EVERY 8 HOURS NEEDED FOR MILD PAIN, DO NOT BREAK, CRUSH, DISSOLVE OR CHEW 40 tablet 1 Active fluconazole (Diflucan) 150 MG tablet Take one tablet today then after 72 hrs take another tablet 2 tablet Active terconazole (Terazol 7) 0.4 % vaginal cream Insert 1 applicator into the vagina at bedtime for 7 days. 45 g 025 2024 Active acetaminophen (Tylenol 8 Hour) 650 MG ER tablet Take 1 tablet (650 mg) by mouth every 8 (eight) hours if needed for mild pain. Do not crush, chew, or split. 40 tablet 1 025 2024 Discontinued fluconazole (Diflucan) 150 MG tabletIndicatio ns:Vaginal discharge Take one tablet today then after 72 hrs take another tablet 2 tablet 025 2024 Discontinued(R eorder (will not trigger [...] Behavioral Health Integration Plan Follow up with [facility]. Madeline agrees to f/u for OP therapy. She reports receiving phone call, but does not recall the name of agency, but will reach out to [facility], as therapist cancelled previous telehealth visit. [...] for support PLAN: 1. Follow up with [facility]: Not recommended for follow-up 2. Patient goal [...] AM EST): I advise to come to [facility] for evaluation and testing Drink plenty of fluids and rest Encounters * This document contains information received from the source organization and may not represent a complete record from that organization. Date Type Department Care Team Description 04/06/2025 9:40 AM EST Office Visit [facility] [address] [place] [phone] Tiara Lloyd DO Vaginal itching (Primary Dx); Secondary amenorrhea 04/06/2025 Travel 03/27/2025 Telephone [facility] MEDICINE [address] [place] [phone] Darling Reyes MD Citizenship Form (I called regarding a Medical Certification for Disability Exemptions, from the [employer] of [place] [employer]. The patient wants to be exempt from having to take the citizenship exam, due to having anxiety, depression, and PTSD. I informed her per the forms nurse, that she should take the form to her psych provider, because they are the ones treating her for those conditions. She stated that her psychiatrist contacted Iliana at the [facility], regarding the form. Iliana then contacted her, and asked her t) 03/08/2025 Refill [facility] [address] [place] [phone] Tiara Lloyd DO 03/06/2025 Refill [facility] [address] [place] [phone] Darling Reyes MD Vaginal discharge 03/02/2025 Refill [facility] WALK-IN [address] [phone] Darling Reyes MD Vaginal discharge 03/02/2025 Refill [facility] [address] [phone] Darling Reyes MD Vaginal discharge 03/01/2025 Orders Only GENERIC EXTERNAL DATA DEPARTMENT Provider, Generic External Data 02/17/2025 10:40 AM EDT Office Visit [facility] [address] [place] [phone] Darling Reyes MD Vaginal discharge 02/17/2025 Travel 02/16/2025 Telephone [facility] [address] [place] [phone] Darling Reyes MD Nurse Triage 02/09/2025 Telephone [facility] [address] [place] [address] Darling Reyes MD NOV RECALL 01/31/2025 10:00 AM EDT Office Visit [facility] [address] [place] [phone] Tiara Lloyd DO Pharyngitis, unspecified etiology (Primary Dx); Vaginal itching; Viral upper respiratory tract infection 01/31/[address] [phone] Darling Reyes MD Letter Request (I called the patient to get clarification, on her request for a letter for social security. I reached a voicemail, and left a message asking her to return my call at extension [phone].) 01/31/2025 Travel 01/23/2025 Refill [facility] [address] [place] [address] Darling Reyes MD Anxiety; Severe episode of recurrent major depressive disorder, without psychotic features (CMS/HCC); Primary insomnia 01/21/2025 Refill [facility] [address] [place] [phone] Anjali Rodriguez MD Acne vulgaris; Telogen effluvium 01/11/[address] [phone] Melissa Lopez CNM March recall 01/04/2025 Results Follow-Up [address] [address] Darling Reyes MD Vascular US lower extremity venous insufficiency bilateral from Last 3 Months Immunizations Immunization Administration [...] Mass Index 22.07 04/06/2025 9:24 AM EST Plan of Treatment Upcoming Encounters Date Type Department Care Team (Late st Contact Info) Description 05/04/2025 10:15 AM EST Office Visit [facility] MED[facility] [address], [place] [phone] Darling Reyes MD [address] [place], [place] [phone] Health Maintenance Due Date Last Done Comments [...] Family Planning (PISQ) 11/30/2025 11/30/2024 Tobacco Screening 04/06/2026 04/06/2025 DTaP/Tdap/Td Vaccines (3 - T d or [...] Routine 04/06/2025 9:41 AM EST Vaginal itching CHLAMYDIA/N. GONORRHOEAE RNA, TMA, UROGENITAL Routine 03/01/2025 10:30 AM EDT BACTERIAL VAGINOSIS PANEL Routine 03/01/2025 10:30 AM EDT CHLAMYDIA/N. GONORRHOEAE RNA, TMA, UROGENITAL Routine 02/17/2025 [...] 01/31/2025 10:27 AM EDT Pharyngitis, unspecified etiology PAP SMEAR Routine 11/13/2022 1:12 PM EDT ZZZ HISTORICAL HEPATITIS C AB W/REFL TO HCV RNA, QN, PCR Routine 06/27/2021 11:08 AM EST HIV 1/2 ANTIGEN/ANTIBODY, FOURTH GENERATION W/RFL Routine 06/27/2021 11:08 AM EST from Last 3 Months or Most Recently Relevant to Health Maintenance Results * POCT , urine manually resulted (04/06/2025 9:44 AM EST) Preg Test, Ur Negative Negative, Indeterminate, None Detected, Invalid, Specimen unsatisfactory for evaluation, Weakly Positive, 2+ QC Media Lot # [id number] Lot# Expiration Date [id number] Urine 04/06/2025 9:44 AM EST us Tiara Lloyd DO POINT OF CARE TEST ENTER/MELODIE T ORDERABLES Final Result * POCT urinalysis dipstick manually resulted (CPT 92507) (04/06/2025 9:41 AM EST) Only the most recent of3 resultswithin the [...] Media Lot # [id number] Lot# Expiration Date Urine (Urine, Random) 04/06/2025 9:41 AM EST Tiara Lloyd POINT OF CARE TEST ENTER/MELODIE T ORDERABLES Final Result * (ABNORMAL) Bacterial Vaginosis (03/01/2025 10:30 AM EDT) Only the most recent of3 resultswithin the time period is included. TRICHOMONAS VAGINALIS DETECTION BY PCR NOT DETECTED Not Detect [facility] BACTERIAL VAGINOSIS DETECTION BY PCR POSITIVE(A) Negative [facility] Comment:The BV organism targ ets [...] DETECTION BY PCR NOT DETECTED Not Detect [facility] Noa glab krusei PCR NOT DETECTED Not Detect [facility] 03/01/2025 10:3 0 AM EDT 03/01/2025 4:56 PM EDT us Generic External Data Provider LAB MICROBIOLOGY - GENERAL ORDERABLES Final Result [facility] [address] [place] [phone] * Chlamydia/N. Gonorrhoeae RNA, TMA, Urogenitial (03/01/2025 10:30 AM EDT) Only the most recent of3 resultswithin the time period is included. CT PCR NOT DETECTED Not Detect. [facility] Comment:A not detected test result [...] psychologicalconsequences. NG PCR NOT DETECTED Not Detect. [facility] Comment:A not detected test result [...] lead to adverse medical, social or psychologicalconsequences. 03/01/2025 10:3 0 AM EDT 03/01/2025 4:56 PM EDT us Generic External Data Provider LAB MICROBIOLOGY - GENERAL ORDERABLES Final Result Performing Organization Address [facility] Co de Phone Number [facility] [address] [place] [phone] * Culture, Urine, Routine (01/31/2025 11:35 AM EDT) Urine Urine specimen obtained by clean catch procedure / Unknown 01/31/2025 11:35 AM EDT 01/31/2025 5:51 PM EDT Comment:UACC Narrative [facility] - 02/02/2025 11:47 AM EDT Urine Culture Report Result Urine Culture 50,000 to 100,000 cfu/ml Urine Culture Mixed bacterial jhoan characteristic of Urine Culture urogenital contamination. Specimen Source: Urine clean catch us Tiara Lloyd DO LAB MICROBIOLOGY - GENERAL O RDERABLES Final Result Performing Organization Address [facility] Co de Phone Number [facility] [address] [place] [phone] * Influenza B (ID NOW Rapid Molecular) (01/31/2025 10:50 AM EDT) Pathologist [facility] Influenza B Negative Negative, Indeterminate [facility] Swab 01/31/2025 10:5 0 AM EDT us Tiara Lloyd DO POINT OF CARE TEST ENTER/MELODIE T ORDERABLES Final Result Performing Organization Address [facility] Co de Phone Number [facility] [address] [place] [phone] * Influenza A (ID NOW Rapid Molecular) (01/31/2025 10:50 AM EDT) Influenza A Negative Negative, Indeterminate [facility] Swab 01/31/2025 10:5 0 AM EDT Tiara Lloyd DO POINT OF CARE TEST ENTER/MELODIE T ORDERABLES Final Result [facility] [address] [place] [phone] * POCT rapid strep A manually [...] TEST ENTER/MELODIE T ORDERABLES Final Result * Pap Smear (11/13/2022 1:12 PM EDT) 11/13/2022 1:12 PM EDT 11/14/2022 8:00 AM EDT Damián [facility] - 12/10/2022 11:35 AM EDT ----- ------- Name: Madeline Santizo Age/Sex: 27/F : 1995 Unit#: [id number] Attend Dr: Sally Alfaro CNM Re11/13/22 Status: DEP REF Location: [facility] Disch: ----- ------- SPEC : [id number] RECD: 11/14/22 STATUS: JOVITA DA SILVA NUM: [id number] NAVYA: 11/13/22-[address] [facility] [address] ENTERED: 11/14/22 SP TYPE: Pap Smr OTHR DR: Darling Reyes MD ORDERED: Pap Smear Interpretation Satisfactory for evaluation. Negative for intraepithelial lesion or malignancy. Clinical Information LMP: 10/13/22 (approximately) Previous PAP test: 12/28/17, ASCUS Material Received ThinPrep-Cervical Copies To: Darling Reyes MD [address] [place] [address] [address] Alfaro [address] [place] [address] ----- ------- Signed (signature on file) TRAVIS Bray (ASCP) 12/10/22 1135 ----- ------- END OF REPORT [facility] External Provider LAB CYT OLOGY ORDERABLES Final Result [facility] [address] [place] [phone] * HEPATITIS C AB W/REFL TO HCV RNA, QN, PCR (06/27/2021 11:08 AM EST) HEPATITIS C ANTIBODY NON-REACT LYLA NON-REACT LYLA [facility] INDEX 0.01 <1.00 [facility] Comment: HCV antibody was non-reactive. There is no laboratory evidence of HCV infection. In most cases, no further action is required. However, if recent HCV exposure is suspected, a test for HCV RNA (test code 03070) is suggested. For additional information please refer to http://[employer]/faq/REZ71v3 (This link is being provided for informational/ educational purposes only.) 06/27/2021 11:0 8 AM EST Darling Johnston MD HISTORICAL/NON ORDERA BLE LABS Final Result [facility] [address] * HIV 1/2 ANTIGEN/ANTIBODY,FOURTH GENERATION W/RFL (06/27/2021 11:08 AM EST) HIV-1/2 ANTIGEN AND ANTIBODIES, 4TH GENERATION W/ REFLEX NON-REACT LYLA NON-REACT LYLA [facility] Comment: HIV-1 antigen and HIV-1/HIV-2 [...] purpose. For additional information please refer to http://education.[employer]/faq/ICO628 (This link is being provided for informational/ educational purposes only.) The performance of this assay has not been clinically validated in patients less than 2 years old. 06/27/2021 11:0 8 AM EST us Darling Johnston MD LAB BLOOD ORDERABLES Final Result [facility] [address] from Last 3 Months or Most Recently Relevant to Health Maintenance Insurance C3 Care Teams Instructional Coordinator Relationship Specialty Start Date End Date Darling Reyes MD [address] [place] [phone] PCP - General Family Medicine 02/10/18
--- OUTSIDE RECORDS SUMMARY | 2025-04-06 18:50 | XMS_ITS | Encounter Summary ---
Author Organization [employer] Address [address] [place] [address] Care Team Providers Care Production Checker Name Role Phone Darling Reyes MD Primary Care Provide r Encounter Details Date Type Department Care Team ([facility] st Contact Info) Description 08/28/2024 Orders Only [facility] [address] [place] [address] [phone] George Knapp MD [address] [place], [place] [phone] Dysuria (Primary Dx) Social History Tobacco Use [...] Description 05/04/2025 10:15 AM EST Office Visit [facility] [address] [place] [phone] Darling Reyes MD [address] [place] [phone] documented as of this encounter Procedures Procedure [...] JACK Final Result [facility] [address] [place] [phone] [phone] documented in this encounter Visit Diagnoses Diagnosis Dysuria- Primary documented in this encounter Additional Health Concerns Assessment Noted Time PHQ-9 Depression Total Score: 19 024 11:31 AM EST documented as of this encounter Care Teams Production Checker Relationship Specialty Start Date End Date Darling Reyes MD [address] [place] [phone] PCP - General Family Medicine 02/10/18 documented as of this encounter
[2025-04-07 04:06] LABS: Bacterial Vaginosis PCR NEGATIVE (Negative); Candida Group PCR NOT DETECTED (Not Detect); Candida glab krusei PCR NOT DETECTED (Not Detect); Trichomonas vaginalis PCR NOT DETECTED (Not Detect)
[2025-04-07 04:37] LABS: CT PCR NOT DETECTED (Not Detect.); NG PCR NOT DETECTED (Not Detect.)
== END 2025-04-06 16:40 | disposition home or self-care (01) ==
LOC: HO.HHCLNP 16:39
PROVIDERS: Visit Provider Family Medicine
DX: Z20.2 Contact with and (suspected) exposure to infections with a predominantly sexual mode of transmission (principal); N89.8 Other specified noninflammatory disorders of vagina
CPT/HCPCS: 81515; 87491; 87591

== ENCOUNTER 2025-04-25 10:40 | Outpatient (REF) | payer MEDICAID, SELFPAY ==
[2025-04-25 13:43] LABS: Hematocrit 41.6 % (37.0-47.0); Hemoglobin 13.9 g/dl (12.0-16.0); Mean Corpuscular HGB Conc 33.4 g/dl (31.0-35.0); Mean Corpuscular Hemoglobin 30.5 pg (27.0-33.0); Mean Corpuscular Volume 91.2 fL (80.0-98.0); NRBC Abs Auto 0.000 X10*3/uL (0.0-0.012); NRBC Pct Auto 0.0 /100WBC (0.0-0.2); Platelet Count 209 X10*3/uL (160-400); Red Blood Count 4.56 X10*6/uL (4.20-5.50); White Blood Count 4.3 X10*3/uL (4.8-10.8)
[2025-04-25 14:16] LABS: Anion Gap 9 (12-20); Blood Urea Nitrogen 8 mg/dL (9-16); Calcium 9.1 mg/dL (8.4-10.2); Carbon Dioxide 25 mmol/L (22-29); Chloride 108 mmol/L (96-108); Estimated Glomerular Filt Rate > 60; Potassium 3.9 mmol/L (3.3-5.1); Sodium 138 mmol/L (135-145)
[2025-04-25 14:29] LABS: Free T4 (Free Thyroxine) 1.01 ng/dL (0.71-1.85)
[2025-04-25 14:45] LABS: Thyroid Stimulating Hormone 1.75 uIU/mL (0.32-4.0)
== END 2025-04-25 10:41 | disposition home or self-care (01) ==
LOC: HO.HHCL 10:40
PROVIDERS: Family Medicine; PCP Internal Medicine; Visit Provider Internal Medicine
DX: Z32.01 Encounter for pregnancy test, result positive (principal); N91.1 Secondary amenorrhea
CPT/HCPCS: 36415; 80048; 82306; 84439; 84443; 84702; 85027